=== PATIENT | male | born 1950 | race Caucasian/White ===

== ENCOUNTER 2017-03-09 07:46 | Day surgery (SDC) | payer MEDICARE, MEDICAID ==
--- NOTE | 2017-03-09 06:10 | HP ---
DATE OF ADMISSION: 03/09/2017 HISTORY OF PRESENT ILLNESS: This is a 66-year-old male referred to me by Dr. Jamel walker of microcytic anemia and low iron. The patient has no specific GI symptoms. No history of abd ominal pain, nausea, or vomiting. His bowel movements are regular. There is no history of hematoch ezia or melena. Routine CBC revealed iron-deficiency anemia. The patient comes in for EGD and a co lonoscopy because of unexplained iron-deficiency anemia. ALLERGIES: None. MEDICAL ILLNESSES: 1. Hypertension. 2. Diabetes mellitus. 3. Coronary artery disease. 4. Status post CVA with right-sided weakness. 5. Gout. 6. Hyperlipidemia. 7. Gastroparesis. PHYSICAL EXAMINATION: GENERAL: He is a healthy-looking male who appears comfortable. He has a right-sided weak ness. He is basically in a wheelchair. VITAL SIGNS: Pulse is 70, blood pressure 130/70. HEENT: Conjunctivae are clear. CARDIOVASCULAR SYSTEM: First and second heart sounds normal. LUNGS: Clear to auscultation. ABDOMEN: Soft to palpate. No organomegaly. No tenderness. No masses. EXTREMITIES: Reveal no edema. ADMITTING DIAGNOSIS: Unexplained iron-deficiency anemia with no specific . PLAN: EGD and colonoscopy.
[2017-03-09] MEDS ORDERED: Lidocaine 1% PF 5 ML VIAL ONE (10:36)
--- NOTE | 2017-03-09 12:08 | OP ---
DATE OF PROCEDURE: 03/09/2017 SURGEON: Wendy Chu M.D. OPERATIVE PROCEDURE: Esophagogastroduodenoscopy. PREOPERATIVE DIAGNOSIS: A 66-year-old male with iron deficiency anemia. The patient is u ndergoing esophagogastroduodenoscopy. POSTOPERATIVE DIAGNOSES: 1. Linear erosion at distal esophagus. 2. Antral gastritis. No biopsies were obtained because he is on Plavix. PROCEDURE IN DETAIL: The patient was placed on his left lateral position and was given sedation by Anesthesia Department. A Pentax video gastroscope under direct vision was passed down the oropharyn x, past the gastroesophageal junction, into the stomach and subsequently into the descending duodenu m. Over the distal esophagus, the patient had a linear erosion. Otherwise, the esophageal mucosa a ppeared normal. The GE junction, no pathology seen. Retroflexion failed to show any lesions in the fundus or cardia. The gastric body, no pathology seen. The gastric antrum showed edematous mucosa at the pyloric channel. No biopsies were taken. The duodenal bulb and descending duodenum, no pat hology seen. The stomach was decompressed and the scope removed.
--- NOTE | 2017-03-09 14:19 | OP ---
OPERATIVE PROCEDURE: Attempted colonoscopy, but not done due to retained stool. PROCEDURE IN DETAIL: The patient was placed on the left lateral position and was given sedation by Anesthesia Department. The patient had diaper, and in the diaper, he had a large amount of solid st ool. A digital exam was done. He had solid stool in the rectal vault and the patient is not cleane d out. The plan is to cancel the colonoscopy today and bring the patient back later.
== END 2017-03-09 12:11 | disposition home or self-care (01) ==
LOC: SDC 07:46
PROVIDERS: ATTEND Internal Medicine Gastroenterology
PROC: 0DJD8ZZ Inspection of Lower Intestinal Tract, Via Natural or Artificial Opening Endoscopic (ICD-10-PCS; principal; 2017-03-09)
PROC: 0DJ08ZZ Inspection of Upper Intestinal Tract, Via Natural or Artificial Opening Endoscopic (ICD-10-PCS; 2017-03-09)
DX: D50.9 Iron deficiency anemia, unspecified (principal); K22.10 Ulcer of esophagus without bleeding; K29.60 Other gastritis without bleeding; I10 Essential (primary) hypertension; E11.9 Type 2 diabetes mellitus without complications; I25.10 Atherosclerotic heart disease of native coronary artery without angina pectoris; M10.9 Gout, unspecified; E78.5 Hyperlipidemia, unspecified; K31.84 Gastroparesis; I69.351 Hemiplegia and hemiparesis following cerebral infarction affecting right dominant side; Z79.4 Long term (current) use of insulin; Z79.899 Other long term (current) drug therapy
CPT/HCPCS: J2001

== ENCOUNTER 2017-03-16 07:38 | Day surgery (SDC) | payer MEDICARE, MEDICAID ==
[2017-03-16] MEDS ORDERED: Propofol 200 MG/20 ML VIAL ONE (09:54)
--- NOTE | 2017-03-16 13:05 | OP ---
DATE OF PROCEDURE: 03/16/2017 SURGEON: Wendy Chu M.D. OPERATIVE PROCEDURE: Colonoscopy with polypectomy with biopsy forceps. PREOPERATIVE DIAGNOSIS: Iron deficiency anemia. POSTOPERATIVE DIAGNOSES: 1. Sessile sigmoid polyp. 2. Hemorrhoids. 3. Otherwise, normal exam. However, the prep was not satisfactory as he had stool throughout the colon. PROCEDURE IN DETAIL: The patient was placed on his left lateral position and was given sedation by the Anesthesia Department. A rectal exam was done before the scope was advanced into the rectum. The patient had a large amount of pasty stool in the diaper before the rectal exam. However, rectal exam did not show any stool in the rectal vault compared to the last week. A Pentax video colonoscope was advanced in the rectum and advanced all the way into the cecum. The patient had pockets of retained stool in the colon throughout and washed out. . The appendiceal orifice, ileocecal valve, no pathology seen. The ascending colon, hepatic flexure, transverse colon, splenic flexure, and descending colon, no pathology seen. The sigmoid colon showed a sessile polyp. The polyp was removed with biopsy forceps. Rectum showed hemorrhoids. DISCHARGE PLANNING: Mr. Mustafa is a 66-year-old male referred to me by Dr. Brayden Mccullough because of iron deficiency anemia. The colonoscopy showed a sessile sigmoid polyp. The quality of prep was less than satisfactory. DISCHARGE RECOMMENDATIONS: 1. Resume diet and medicines as before. 2. He will come back to me in 2 weeks. [facility]
== END 2017-03-16 12:00 | disposition home or self-care (01) ==
LOC: SDC 07:38
PROVIDERS: ATTEND Internal Medicine Gastroenterology
PROC: 0DBN8ZX Excision of Sigmoid Colon, Via Natural or Artificial Opening Endoscopic, Diagnostic (ICD-10-PCS; principal; 2017-03-16)
DX: D12.5 Benign neoplasm of sigmoid colon (principal); D50.0 Iron deficiency anemia secondary to blood loss (chronic); K64.9 Unspecified hemorrhoids; Z79.899 Other long term (current) drug therapy; Z98.890 Other specified postprocedural states
CPT/HCPCS: 36416; 88305; J2704

== ENCOUNTER 2017-12-22 07:47 | Day surgery (SDC) | payer MEDICARE, MEDICAID ==
[2017-12-21 10:39] VITALS: BMI 32.7
--- NOTE | 2017-12-22 05:40 | HP ---
SHORT STAY HISTORY AND PHYSICAL DATE OF ADMISSION: 12/22/2017 HISTORY OF PRESENT ILLNESS: This is a 67-year-old male, referred to me by Dr. Mccullough for microcytic anemia. The patient is disabled and he has had a stroke before . The patient has a history of diabetes mellitus, gastroparesis, coronary artery disease, and also past history of CVA. The patient also has history of gout, hyperlipidemia, and hypertension. The patient lives in [facility]. The patient was found to have anemia with recent drop in blood count. The anemia is microcytic and he has low serum iron. The patient was seen maybe a year ago and had an EGD done, which revealed gastric erosions. The colonoscopy was incomplete, because of retained stool. The patient has no history of hematochezia, no melena. The patient's anemia is microcytic. Because of above reason, he is brought in for EGD and colonoscopy. MEDICAL ILLNESS:. 2. Hypertension. 3. Diabetes. 4. Coronary artery disease. 5. Past history of CVA. 6. Colon polyp. 7. Gastroparesis. ALLERGIES: None. PHYSICAL EXAMINATION: VITAL SIGNS: Pulse is 70, blood pressure 130/70. HEENT: Conjunctivae clear. CARDIOVASCULAR SYSTEM: First and second heart sounds are normal. LUNGS: Clear to auscultate. ABDOMEN: Soft to palpate. No organomegaly. No tenderness. No masses. ADMITTING DIAGNOSES: 1. Microcytic anemia. 2. Colon polyp. PLAN: EGD and colonoscopy. [facility]
[2017-12-22] MEDS ORDERED: Lidocaine 1% PF 5 ML VIAL ONE (13:44)
[2017-12-22] MEDS ORDERED: PROPOFOL 200 MG/20 ML VIAL ONE (13:44)
--- NOTE | 2017-12-23 11:17 | OP ---
DATE OF PROCEDURE: 12/22/2017 SURGEON: Wendy Chu M.D. OPERATIVE PROCEDURE: Esophagogastroduodenoscopy. PREOPERATIVE DIAGNOSIS: A 67-year-old male with iron deficient anemia, undergoing esophagogastroduod enoscopy. POSTOPERATIVE DIAGNOSES: 1. Anemia. 2. Mild gastritis which is focal with the proximal gastric body. There is no other pathology seen. PROCEDURE IN DETAIL: The patient was placed on his left lateral position and was given sedation by A nesthesia Department. A Pentax video gastroscope under direct vision was passed down the oropharynx, past the GE junction, into the stomach and subsequently in the descending duodenum. The vocal cords appeared healthy. The esophageal mucosa appears normal. The GE junction, no pathology seen. He stapleton s a hiatus hernia. The fundus and cardia, no pathology seen. Over the proximal gastric body showed focal edema, erythema. The gastric antrum, duodenal bulb, and descending duodenum, no pathology seen . The stomach was decompressed and the scope removed.
--- NOTE | 2017-12-24 00:54 | OP ---
DATE OF PROCEDURE: 12/22/2017 PROCEDURE: Colonoscopy. PREOPERATIVE DIAGNOSIS: Microcytic anemia. PROCEDURE NOTE: The patient was turned on his left lateral position and was given sedation by Anesth esia Department. The patient's diaper was removed. The patient had a large amount of stool in the d iaper. The digital exam was performed. The digital exam showed retained stool in the rectal vault. Because of above reason, the procedure was canceled. DISCHARGE PLANNING: This is a 67-year-old male referred to me by Dr. Mccullough for evaluation of iron deficiency anemia. The EGD showed focal gastritis. The colonoscopy was not possible because of ret ained stool. The patient will be discharged back to [facility] and will probably bring him back in the next few weeks.
== END 2017-12-22 11:42 ==
LOC: SDC 07:47
PROVIDERS: ATTEND Internal Medicine Gastroenterology
PROC: 0DJ08ZZ Inspection of Upper Intestinal Tract, Via Natural or Artificial Opening Endoscopic (ICD-10-PCS; principal; 2017-12-22)
DX: K29.70 Gastritis, unspecified, without bleeding (principal); I10 Essential (primary) hypertension; E11.9 Type 2 diabetes mellitus without complications; I25.10 Atherosclerotic heart disease of native coronary artery without angina pectoris; Z79.4 Long term (current) use of insulin; Z79.899 Other long term (current) drug therapy; Z79.82 Long term (current) use of aspirin
CPT/HCPCS: 36416; J2001; J2704

== ENCOUNTER 2017-12-25 16:46 | Inpatient (IN) | payer MEDICARE, MEDICAID ==
[~2017-12-25 16:46] MED LIST: ISOVUE-370 76%-LOCM 1 ML ONE
[2017-12-25 18:18] LABS: INR-International Normal Ratio 1.2; Prothrombin Time 15.2 SEC (12.0-14.7)
[2017-12-25 18:19] LABS: PTT 49.2 SEC (22.9-36.1)
--- NOTE | 2017-12-25 18:32 | CT ---
CT ANGIOGRAM OF THE CHEST 12/25/17 COMPARISON: None. HISTORY: Dyspnea, NSTEMI, "not felling well." TECHNIQUE: Serial axial CT imaging at 2.5 mm intervals from the thoracic inlet through the upper abdomen with IV contrast using a CT angiogram protocol. Coronal and oblique sagittal 3D reformatted imaging obtained . FINDINGS: Midline sternotomy wires are present. No axillary, mediastinal or hilar lymphadenopathy. Extensive co ronary arterial calcification. The heart is enlarged. There is reflux of contrast media into the IVC and hepatic veins suggesting suboptimal cardiac output. Disconnected epicardial pacing leads are pres ent. Punctate calcification in the mid pole of the left kidney noted which could represent renal stone dis ease or vascular calcification. Adequate opacification of pulmonary arterial vasculature noted. No filling defect is seen to suggest the presence of a central pulmonary embolism. Assessment of the distal pulmonary artery is limited bi laterally on the basis of respiratory motion artifact. This artifact is most significant within bilat eral lung bases. There are small bilateral pleural effusions. There is subtle hazy ground glass opacity and mild liner interstitial prominence in the bilateral upper lobes centrally, right greater than left. Review of t he osseous structures demonstrates no worrisome lytic or blastic bone lesions. IMPRESSION: 1. Motion limited assessment demonstrating no evidence for pulmonary embolism. 2. Findings suggesting pulmonary edema. 3. Atherosclerotic disease. POS: GABRIEL
[2017-12-25 18:38] LABS: Troponin I 18.317 ng/mL (< 0.028)
--- NOTE | 2017-12-25 19:58 | CON ---
DATE OF CONSULTATION: 12/25/2017 CARDIOLOGY CONSULTATION: REASON FOR CONSULTATION: Non-STEMI. HISTORY OF PRESENT ILLNESS: Mr. Mustafa is a pleasant 67-year-old white gentleman who comes to the hospital for having a low O2 sat. He is in a retirement for stroke and residual deficits with spe ech and has weakness. He was noted to have some nausea and vomiting in a retirement and oxygen sat uration was measured 91% on room air. So there was a concern for aspiration, so he was brought in. He has had a cough for the past 3 days, apparently, but when talking to him, he tells me he has been short of breath for about 3 weeks now, he also tells me that he has not had any chest pain except for about a week ago. He had about a day worth of chest pain. He has not had any chest pain. He denie s any chest pain currently. When asked exactly what had changed that made him come in, he is not shelton e he tells me that he thinks that the retirement just got fed up of dealing with him; however, look ing at the notes because he was mildly hypoxic as above. Otherwise, no other issues at that time. Philippe sapp has a history of anemia. He has been worked up here in the past with multiple scopes performed by Dr. Chu the last time he had a colonoscopy, had a sessile polyp removed, but he has also had up per endoscopy that showed just gastric erosions suggestive of gastritis. He was transfused when his hemoglobin was in the 7s went up to 11, but trickled down a few months later down to 7 again. Currking herrera, his hemoglobin is at 7 as well. Cardiology is being consulted as his troponins were first drawn and they were 17.9. Apparently, he has also been having diarrhea for the last 3 weeks. PAST MEDICAL HISTORY: 1. Coronary artery disease, status post bypass about 5 years ago down in [place]. 2. Stent placement sometime after his bypass in [place] as well, but 2 years ago. 3. History of chronic anemia thought to be from a slow GI bleed from gastritis, possibly. 4. Hypertension. 5. Type 2 diabetes. 6. Cerebrovascular accident with right-sided weakness and mild speech impairment. 7. Gout. 8. Hyperlipidemia. 9. Gastroparesis. PAST SURGICAL HISTORY: 1. CABG as above. 2. Stenting as above. SOCIAL HISTORY: No alcohol, tobacco or drugs. He stays at retirement now due to his stroke. FAMILY HISTORY: Noncontributory. OUTPATIENT MEDICATIONS: Include: 1. Levemir. 2. Aspirin 81 a day. 3. Allopurinol 300 mg a day. 4. Carvedilol 6.25 mg b.i.d. 5. Lisinopril 20 mg a day. 6. Protonix 40 mg a day. 7. Multivitamin daily. 8. Proscar 5 mg a day. 9. Reglan 10 mg p.r.n. 3 times a day. 10. Loperamide 2 mg p.r.n. 11. Milk of magnesia. 12. Tylenol p.r.n. 13. O2 as needed. 14. Humalog KwikPen p.r.n. 12 units 3 times a day before meals. ALLERGIES: No known drug allergies. REVIEW OF SYSTEMS: A 12 point review of systems was done and is all negative unless stated in the hi story of present illness. PHYSICAL EXAMINATION: VITAL SIGNS: Temperature 99.1, pulse 90, respiratory rate 30, satting 91% on room air. His respirat ory rate is much better now that he is on oxygen about 22 and he is satting 96% on 2 liters, blood pr essure was 140/78. GENERAL: Awake, alert, oriented x3, in no distress. HEENT: Normocephalic, atraumatic. NECK: Supple. LUNGS: Mild crackles at the bases. CARDIOVASCULAR: S1, S2, no S3, S4, no murmurs. ABDOMEN: Soft, positive bowel sounds. EXTREMITIES: no edema. SKIN: Warm and dry. LABORATORY WORK: Reviewed. CBC with a white count of 15, hemoglobin was 7.5, hematocrit of 26, plat elet count of 350. Coags with INR of 1.2. Chemistry with sodium of 137, potassium is 4.4, chloride 107. Carbon dioxide of 20, anion gap of 14, BUN of 14, creatinine 1.13, GFR 64, glucose was 299. La ctic acid was 1.8. Alkaline phosphatase, AST, ALT and total bilirubin were normal. Troponin was 17. 9, repeat is 18.3 with a CK-MB of 10.4. BNP was 2173. Albumin of 3.5, lipase of 18. CT of the chest performed at outside facility shows no evidence of pulmonary embolism, but there are findings consistent with pulmonary edema. EKG was reviewed, ST depression suggestive of anterior lateral ischemia, but no ST elevations. ASSESSMENT AND PLAN: 1. Non-ST elevation myocardial infarction. 2. Acute on chronic systolic versus diastolic heart failure. 3. Late presentation myocardial infarction. 4. Hypoxia, likely related to pulmonary edema. 5. Coronary artery disease. 6. Anemia may be related to gastrointestinal bleed. PLAN: 1. At this time he is chest pain free, his CO might have happened maybe a week ago when he had episo delmar of chest pain; however, he has been short of breath for the last 3 weeks. We agree with admissio n to telemetry. 2. We will recommend full anticoagulation for now, see if he starts dropping his hemoglobin. 3. IV Lasix for his pulmonary edema. 4. No plan on intervention at this time secondary to his chronic anemia which is likely related to g astrointestinal blood loss and the fact that he is both chest pain free and late presenting to this M I likely his CO was about a week ago. 5. Echocardiogram to be done. 6. Patient is severely ill, would not be unexpected. 7. Further recommendations with results of echo.
[2017-12-25 21:35] LABS: Troponin I 19.713 ng/mL (< 0.028)
--- NOTE | 2017-12-25 22:57 | PDOC.FPRHP ---
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 The patient was a poor historian who was oriented only to person and place on exam. The patient reports having some N/V and RLQ abdominal pain that has been ongoing for the last week. He says that the vomiting has not occurred daily but about every other day and that he vomits about 2-3 times/day. He denies any hematemesis but does endorse yellow colored vomitus. Regarding his RLQ pain, the patient reports that the pain is episodic and lasts about 1.5 hours before going away on its own. He says it is non- radiating and sharp in nature. The patient denies any chest pain, SOB, headache , weakness, or dizziness. Of note, per chart review, ER records indicate that the patient was sent to the ED from the intermediate due to N/V at lunch & SOB. He was found to have an O2 of 91% on RA & sent to the ED due to concerns for possible aspiration. The intermediate reports SOB x 1 week and a cough x 3 days prior to admission. Also of note, the patient's daughter reports that his mental status during the interview was way off from his baseline and that he normally is very sharp. ED Course: The patient was given 90mg of SQ lovenox, 325 of ASA in [facility] & 40mg IV lasix. He was also given a Duoneb treatment. - Allergies/Adverse Reactions Allergies Allergy/AdvReac Type Severity Reaction Status Date / Time No Known Allergies Allergy Verified 12/21/17 10:39 - Home Medications Medication Instructions Recorded Confirmed Type Allopurinol 300 mg PO DAILY 02/22/17 12/26/17 History Aspirin [Aspirin Chewable Tablet] 81 mg PO DAILY 02/22/17 12/26/17 History Carvedilol [Coreg] 6.25 mg PO BID 02/22/17 12/26/17 History Lisinopril [Zestril] 20 mg PO DAILY 02/22/17 12/26/17 History Metoclopramide HCl [Reglan] 10 mg PO TID 02/22/17 12/26/17 History Multivitamin [Multi-Vitamin Daily] 1 tablet PO DAILY 02/22/17 12/26/17 History Finasteride [Proscar] 5 mg PO DAILY tab 02/23/17 12/26/17 Rx Insulin Aspart [Novolog] 12 unit SQ TID 12/21/17 12/26/17 History Insulin Detemir [Levemir] 70 unit SQ DAILY 12/21/17 12/26/17 History Pantoprazole [Protonix] 40 mg PO DAILY 12/21/17 12/26/17 History Acetaminophen 650 mg PO Q4HR PRN 12/26/17 12/26/17 History Loperamide HCl [Loperamide] 2 mg PO ASDIR PRN 12/26/17 12/26/17 History Magnesium Hydroxide [Milk of 30 ml PO DAILY PRN 12/26/17 12/26/17 History Magnesia] - History PMHx: CAD s/p quadruple CABG, CHF without preserved EF, CVA x 2, HLD, HTN, GERD , DMII, gout PSHx: CABG FHx: Father- DMII & from an [place] Mother- from a CVA, also had an [place] Social: No EtOH, drug, or current or former tobacco use. - Review of Systems General: reports: fatigue. denies: fever/chills, weight/appetite/sleep changes Eyes: reports: other ( burning in R eye) ENT: denies: nasal congestion, rhinorrhea Respiratory: denies: cough, shortness of breath Cardiovascular: reports: edema (R leg edema). denies: chest pain Gastrointestinal: reports: nausea, vomiting, diarrhea, abdominal pain. denies: constipation, GI bleeding Genitourinary: denies: dysuria Skin: denies: rashes Musculoskeletal: reports: swelling (RLE swelling). denies: pain Neurological: denies: numbness, syncope, weakness - Vital signs BP: 144/83 HR: 80 RR: 18 Tmax: 99F Pox: O2 monitor was not in place during time of exam - Physical Exam Constitutional: NAD -Constitutional: Oriented to person only. HEENT: normocephalic and atraumatic, PERRLA, conjunctiva clear, grossly normal vision, grossly normal hearing, MMM, oropharynx clear Neck: supple, no LAD Heart: RRR, normal S1/S2, pulses present, no edema Lungs: CTAB, no respiratory distress, good air movement, no rales/rhonchi, no wheezing Abdomen: soft, bowel sounds present, other (Moderate abdominal distension. Tender to palpation in LLQ on exam.) Musculoskeletal: normal structure, ROM grossly normal Neurological: no focal deficit, CN II-XII intact, normal sensation Skin: no rash/lesions, good turgor, no jaundice Heme/Lymphatic: no unusual bruising or bleeding Psychiatric: normal mood and affect (Poor recent memory.) FMR H&P: Results - Labs Result Diagrams: 12/26/17 05:25 12/26/17 00:28 - EKG Interpretation EKG: Significant for T wave inversion in the lateral precordial leads. - Radiology Interpretation Chest x-ray Status: report reviewed by me Additional comment: CXR in outside ED was significant for pulmonary vascular congestion and cardiomegaly. No pulmonary edema or effusion. FMR H&P: A/P - Problem List (1) NSTEMI (non-ST elevated myocardial infarction) Current Visit: Yes Status: Acute Code(s): I21.4 - NON-ST ELEVATION (NSTEMI) MYOCARDIAL INFARCTION (2) Systolic CHF, acute on chronic Current Visit: Yes Status: Chronic Priority: High Code(s): I50.23 - ACUTE ON CHRONIC SYSTOLIC (CONGESTIVE) HEART FAILURE (3) Diastolic CHF Current Visit: Yes Status: Chronic Code(s): I50.30 - UNSPECIFIED DIASTOLIC ( CONGESTIVE) HEART FAILURE Qualifiers: Heart failure chronicity: acute on chronic Qualified Code(s): I50.33 - Acute on chronic diastolic (congestive) heart failure (4) Microcytic anemia Current Visit: Yes Status: Chronic Code(s): D50.9 - IRON DEFICIENCY ANEMIA, UNSPECIFIED (5) History of myocardial infarction Current Visit: Yes Status: Resolved Code(s): I25.2 - OLD MYOCARDIAL INFARCTION (6) Coronary artery disease Current Visit: Yes Status: Chronic Code(s): I25.10 - ATHSCL HEART DISEASE OF [place] CORONARY ARTERY W/O ANG PCTRS Qualifiers: Coronary Disease-Associated Artery/Lesion type: bypass graft [place] vs. transplanted heart: [place] heart (7) History of CVA with residual deficit Current Visit: Yes Status: Chronic Code(s): I69.30 - UNSPECIFIED SEQUELAE OF CEREBRAL INFARCTION (8) Hyperlipemia Current Visit: Yes Status: Chronic Code(s): E78.5 - HYPERLIPIDEMIA, UNSPECIFIED (9) Hypertension Current Visit: Yes Status: Chronic Code(s): I10 - ESSENTIAL (PRIMARY) HYPERTENSION (10) Diabetes mellitus, type II Current Visit: Yes Status: Chronic (11) Gout Current Visit: Yes Status: Chronic Code(s): M10.9 - GOUT, UNSPECIFIED (12) GERD (gastroesophageal reflux disease) Current Visit: Yes Status: Chronic Code(s): K21.9 - GASTRO-ESOPHAGEAL REFLUX DISEASE WITHOUT ESOPHAGITIS (13) Benign prostatic hyperplasia Current Visit: Yes Status: Chronic Code(s): N40.0 - BENIGN PROSTATIC HYPERPLASIA WITHOUT LOWER URINRY TRACT SYMP - Plan 67YO male with PMH significant for systolic and diastolic CHF, [place] x 2 with CAD s/p CABGx4, HTN, and HLD who presented to the ED due to SOB, N/V and cough and was foudn to have had an NSTEMI on an ECG. 1. NSTEMI: - Per cards likely happened about 1 week ago when patient's symptoms began. - Will continue full anticoagulation with 90mg Lovenox SQ BID & 81mg ASA QD. - Per cards no cath planned at this time. Likely 2/2 anemia. - Echo ordered for the AM. - Will continue to trend troponins. 2. Acute on chronic CHF exacerbation: - Likely 2/2 NSTEMI but could also be due to poor medication or diet compliance. - Will continue IV lasix & monitor strict Is & Os & QD weights. - Will resume cardiac, carb consistent diet with fluid restricted to 1800mL/ day. - Will resume home meds. 3. Metabolic encephalopathy - Could be 2/2 CVA vs. infection vs. delirium. - Will obtain CT head to rule out CVA. Could consider AM MRI. - CXR negative which rules out PNA. WBC elevated at 25. Could be 2/2 stress response. However, will order a UA and urine culture to r/o UTI as source of infection. - Will continue to monitor for other signs of infection. 4. Chronic Microcytic Anemia: - Likely 2/2 iron deficiency as MCV was 60. - Colonoscopy 1 year ago WNL. No melena or hematochezia per patient. - FOBT pending. - Iron studies pending. 5. h/o CAD - Aware. - Will resume home meds. 6. HLD: - Aware. - Will resume home meds. 7. HTN: - Will resume home meds. 8. GERD: - Will resume home meds. 9. DMII: - Aware. - Will resume home meds and carb consistent diet. 10. Gout: - Will resume home meds. 11. BPH: - Will resume home meds. FMR H&P: [facility] - Pertinent history Patient is a 67 year old male who was transferred from an outside ER due to NSTEMI. Pt is originally from [facility] and was complaining of dyspnea, nausea/vomiting, abdominal pain. He was found to have an oxygen saturation of 91 % at the DC and EMS was called due to concern for aspiration (per ED notes). At the outside ER pt was found to have a Troponin of 17.99. He was given ASA and therapeutic lovenox prior to transfer. Cardiology was consulted and believes that pt's symptoms are subacute and stated that emergent intervention was not needed. Currently, pt denies chest pain, abdominal pain, nausea and vomiting. Of note, pt's daughter states that patient is not currently behaving like himself and is not answering questions appropriately and was not oriented to time or place which is abnormal for h im. - Plan Date/Time: 12/25/17 8797 INicki, have evaluated this patient and agree with findings/plan as outlined by equine intern resident. Pertinent changes/additions are listed here. NSTEMI - Pt will be admitted to telemetry inpatient. - cardiology recommendations - Echocardiogram - trend troponins Metabolic encephalopathy - differentials include CVA, infection, delirium -will obtain CT head to rule out hemorrhagic stroke, consider MRI in am - will order urine culture and monitor for other signs of infection; CXR negative. - reorienting CHF exacerbation - IV lasix - strict I/Os, daily weights. - Echo CAD - s/p CABG - will resume home meds Chronic microcytic anemia - 2 units PRBCs ordered and started in ED. - AM CBC - will aim to keep Hgb > 10 due to history of CAD. - iron studies - pt has had recent EGD 2 days ago showing gastritis and Colonoscopy last yr in which a tubular adenoma was removed. GERD - resume home meds Depression - resume home meds Attending Addendum - Attending Addendum Date/Time: 12/26/17 8467 I personally evaluated the patient and discussed the management with Dr. Butler and Jonathan this morning. I agree with the History, Examination, Assessment and Plan documented above with any addition or exceptions noted below.
--- NOTE | 2017-12-25 23:49 | CT ---
HEAD CT WITHOUT CONTRAST: 12/25/17 COMPARISON: None. HISTORY: Confusion, altered mental status. TECHNIQUE: Serial axial CT imaging at 5 mm intervals from vertex through skull base without contrast. FINDINGS: The imaged paranasal sinuses and mastoid air cells are well aerated. There is no displaced calvarial fracture. There is atherosclerotic calcification of the cavernous carotid arteries. There is periventricular deep and subcortical white matter hypodensities suggesting small vessel dise ase. There is mild diffuse cerebral volume loss with associated prominence of the CSF containing spac es. There is atherosclerotic calcification of the distal vertebral arteries and the cavernous carotid arteries. No acute findings are noted. IMPRESSION: Evidence of small vessel disease and cerebral volume loss with no intracranial hemorrhage, midline sh ift or mass effect. POS: [facility]
[2017-12-26] MEDS ORDERED: Acetaminophen 325 MG TAB PO PRN ×2 (00:06→00:08)
[2017-12-26] MEDS ORDERED: Ondansetron HCl/PF 4 MG/2 ML Vial IVP PRN (00:08)
[2017-12-26 00:12] VITALS: BMI 30.6
[2017-12-26] MEDS ORDERED: Loperamide HCl 2 MG CAP PO PRN (00:49)
[2017-12-26 01:06] LABS: Iron 16 ug/dL (65-175); Iron Binding Capacity, Total 304 mcg/dL (261-462)
[2017-12-26 01:07] LABS: Iron 16 ug/dL (65-175); Iron Binding Capacity, Total 304 mcg/dL (261-462)
[2017-12-26 01:14] LABS: Critical Call Chem Troponin I RESULT DECREASING
[2017-12-26] MEDS ORDERED: Enoxaparin Sodium 100 MG/ML SYRINGE SC SCH ×2 (04:00→09:00)
[2017-12-26] MEDS: Furosemide 40 MG/4 ML VIAL SLOW IVP SCH ×2 (05:00→14:19)
--- NOTE | 2017-12-26 06:02 | PDOC.EVN ---
Event Note - Event Note Event Note: Nurse called residents to bedside at approximately 0545 2/2 decreased alertness/ responsiveness. - Patient was resting in bed with mild increased work of breathing. O2 sats 94% on 2L O2 via nasal canula. - Oriented to person only (no change from orientation on admission). Was following commands and answering most questions appropriately. - RRR, LCTAB. - Denied any chest or abdominal pain. Just endorsed feeling tired. - Bedside POC BG was 197. - Nurse also reported that the patient refused his lovenox shot. Spoke with patient reminding him of why he was i n the hospital & explained the importance of getting this shot. The patient then agreed to have it. - Reassured nurse that no extra interventions were needed at this time. Instructed to notify MD if there was any acute worsening of symptoms.
[2017-12-26 06:12] LABS: #Basophils 0.1 thou/uL (0.0-0.2); #Eosinphils 0.2 thou/uL (0.0-0.7); #Lymphocytes 2.4 thou/uL (1.20-3.40); #Monocytes 1.2 thou/uL (0.11-0.59); #Neutrophils 8.2 thou/uL (1.40-6.50); %Basophils 0.5 % (0.0-1.0); %Eosinophils 1.8 % (0.0-10.0); %Lymphocytes 19.5 % (21.0-51.0); %Monocytes 10.1 % (0.0-10.0); %Neutrophils 68.1 % (42.0-75.0); Band 1 % (5-11); Elliptocytes SLIGHT = 2-5 cells (100X) (0-1/hpf); Eosinophils 4 % (0-10); Hemoglobin 9.5 g/dL (14.0-18.0); Lymphocytes 27 % (21-51); MDiff Complete? YES; Mean Corpuscular Hemoglobin 21.4 pg (27.0-31.0); Mean Corpuscular Volume 66.9 fL (78.0-98.0); Mean Platelet Volume 10.9 fL (7.4-10.4); Monocytes 6 % (0-10); Neutrophil 62 % (42-75); PLT Morphology Comment Appears Adequate; Platelet Count 290 thou/uL (130-400); RBC Distribution Width 23.7 % (11.5-14.5); Red Blood Cell (RBC) Count 4.44 mill/uL (4.70-6.10); White Blood Cell (WBC) Count 12.1 thou/uL (4.8-10.8)
[2017-12-26 07:06] LABS: ALT (SGPT) Less than 7 U/L (8-55); AST (SGOT) 24 U/L (5-34); Albumin 3.4 g/dL (3.4-4.8); Alkaline Phosphatase 69 U/L (40-150); Anion Gap 12 mmol/L (10-20); BUN (Urea Nitrogen) 15 mg/dL (8.4-25.7); Bilirubin, Total 0.7 mg/dL (0.2-1.2); Calc. Creatinine Clearance 74 mL/min (70-130); Calcium 8.5 mg/dL (7.8-10.44); Carbon Dioxide 23 mmol/L (23-31); Chloride 106 mmol/L (98-107); Estimated GFR-MDRD 61; Globulin 2.9 g/dL (2.4-3.5); Glucose 179 mg/dL (80-115); Potassium 3.8 mmol/L (3.5-5.1); Protein, Total 6.3 g/dL (5.8-8.1); Sodium 137 mmol/L (136-145)
--- NOTE | 2017-12-26 08:00 | PDOC.FM ---
- Subjective Subjective: Overnight patient remained A&O x1-x2. No other concerns - Objective MAR Reviewed: Yes Vital Signs & Weight: Vital Signs (12 hours) Temp Pulse Resp BP Pulse Ox 12/26/17 04:56 97.8 F 78 20 142/78 H 95 12/25/17 23:55 98.8 F 77 17 2 L 12/25/17 23:50 98.8 F 77 17 118/66 95 Weight Weight 88.649 kg I&O: 12/25/17 12/26/17 12/27/17 06:59 06:59 06:59 Intake Total 750 Balance 750 Result Diagrams: 12/26/17 05:25 12/26/17 00:28 <Arianna Gonzalez - Last Filed: 12/26/17 22:02> - Objective Vital Signs & Weight: Vital Signs (12 hours) Temp Pulse Resp BP BP Pulse Ox 12/27/17 11:43 98.2 F 65 16 120/67 12/27/17 09:41 109/73 12/27/17 09:40 109/73 12/27/17 08:00 99.2 F 65 16 109/73 96 12/27/17 04:27 98.3 F 70 16 145/72 H 95 Weight Weight 83.631 kg I&O: 12/26/17 12/27/17 12/28/17 06:59 06:59 06:59 Intake Total 750 1260 Balance 750 1260 Result Diagrams: 12/27/17 04:55 12/27/17 04:55 <George Alexander A - Last Filed: 12/27/17 14:12> Phys Exam - Physical Examination Constitutional: NAD HEENT: TM's clear fine bibasilar crackls, supraclavical retractions Cardiovascular: RRR Gastrointestinal: soft, non-tender, no distention Musculoskeletal: no edema Deviation from normal: A&O x2, disoriented to place Skin: cap refill <2 seconds <Arianna Gonzalez - Last Filed: 12/26/17 22:02> Dx/Plan (1) NSTEMI (non-ST elevated myocardial infarction) Code(s): I21.4 - NON-ST ELEVATION (NSTEMI) MYOCARDIAL INFARCTION Status: Acute (2) Benign prostatic hyperplasia Code(s): N40.0 - BENIGN PROSTATIC HYPERPLASIA WITHOUT LOWER URINRY TRACT SYMP Status: Chronic (3) CKD (chronic kidney disease), stage III Code(s): N18.3 - CHRONIC KIDNEY DISEASE, STAGE 3 (MODERATE) Status: Chronic (4) Coronary artery disease Code(s): I25.10 - ATHSCL HEART DISEASE OF [place] CORONARY ARTERY W/O ANG PCTRS Status: Chronic Qualifiers: Coronary Disease-Associated Artery/Lesion type: bypass graft [place] vs. transplanted heart: [place] heart (5) Hyperlipemia Code(s): E78.5 - HYPERLIPIDEMIA, UNSPECIFIED Status: Chronic (6) Hypertension Code(s): I10 - ESSENTIAL (PRIMARY) HYPERTENSION Status: Chronic - Plan Plan: 67 yo M with PH CABG here with NSTEMI and acute AMS 1. Acute AMS 2/2 Cardiogenic Shock vs. Infection vs. CVA -Altered from baseline per daughter who reports he is typically very sharp but pt has been A&O x1 - x2 since admission -For UTI: Obtained urine sample today. F/u UA and UC -For cardiogenic shock: CXR repeat showed pulm. vascular sejal. Continue IV lasix 40 and 2.5L NC O2, I/Os, Pending echo -CVA: H/o CVA and pt dysarthric with NH reporting concern for aspiration PNA-ST rx mech soft diet. Consider brain MRI -Aspiration PNA: consider starting clindamycin for anaerobic coverage -Check TSH 2. HLD -Continue home meds 3. HTN -Continue home meds 4. DM2 -Continue home meds 5. Depression -Continue home meds 6. Gout -Continue home meds 7. BPH -Continue home meds 8. chronic microcytic Anemia -monitor H/H, aim for Hb >10 d/t pts h/o CAD Plan discussed with Dr. alexander <Arianna Gonzalez - Last Filed: 12/26/17 22:02> (1) NSTEMI (non-ST elevated myocardial infarction) Code(s): I21.4 - NON-ST ELEVATION (NSTEMI) MYOCARDIAL INFARCTION Status: Acute (2) Systolic CHF, acute on chronic Code(s): I50.23 - ACUTE ON CHRONIC SYSTOLIC (CONGESTIVE) HEART FAILURE Status : Chronic (3) Diastolic CHF Code(s): I50.30 - UNSPECIFIED DIASTOLIC (CONGESTIVE) HEART FAILURE Status: Chronic Qualifiers: Heart failure chronicity: acute on chronic Qualified Code(s): I50.33 - Acute on chronic diastolic (congestive) heart failure (4) Microcytic anemia Code(s): D50.9 - IRON DEFICIENCY ANEMIA, UNSPECIFIED Status: Chronic (5) History of myocardial infarction Code(s): I25.2 - OLD MYOCARDIAL INFARCTION Status: Resolved (6) Coronary artery disease Code(s): I25.10 - ATHSCL HEART DISEASE OF [place] CORONARY ARTERY W/O ANG PCTRS Status: Chronic Qualifiers: Coronary Disease-Associated Artery/Lesion type: bypass graft [place] vs. transplanted heart: [place] heart (7) History of CVA with residual deficit Code(s): I69.30 - UNSPECIFIED SEQUELAE OF CEREBRAL INFARCTION Status: Chronic (8) Hyperlipemia Code(s): E78.5 - HYPERLIPIDEMIA, UNSPECIFIED Status: Chronic (9) Hypertension Code(s): I10 - ESSENTIAL (PRIMARY) HYPERTENSION Status: Chronic (10) Diabetes mellitus, type II Status: Chronic (11) Gout Code(s): M10.9 - GOUT, UNSPECIFIED Status: Chronic (12) GERD (gastroesophageal reflux disease) Code(s): K21.9 - GASTRO-ESOPHAGEAL REFLUX DISEASE WITHOUT ESOPHAGITIS Status: Chronic (13) Benign prostatic hyperplasia Code(s): N40.0 - BENIGN PROSTATIC HYPERPLASIA WITHOUT LOWER URINRY TRACT SYMP Status: Chronic <George Alexander - Last Filed: 12/27/17 14:12> Attending Addendum - Attending Addendum Date/Time: 12/27/17 1412 I personally evaluated the patient and discussed the management with Dr. Gonzalez on 12/26/17. I agree with the History, Examination, Assessment and Plan documented above with any addition or exceptions noted below. <George Alexander - Last Filed: 12/27/17 14:12>
[2017-12-26 08:23] LABS: Bilirubin Negative (Negative); Blood, Urine Small (Negative); Clarity CLEAR (Clear); Glucose, Urine (Dipstick) Negative (Negative); Leukocyte Negative (Negative); Nitrite Negative (Negative); Protein, Urine (Dipstick) Negative (Neg-Trace); Specific Gravity, Urine 1.007 (1.002-1.036); Urobilinogen 0.2 mg/dL (0.2-1.0)
[2017-12-26 08:25] LABS: Bacteria/HPF None Seen HPF (None Seen); Hyaline Casts/LPF 0-3 HYALINE CAST LPF (0-3 Hyaline); Pathc Cast-AUWi Flag 0.14 (0-2.49); Squamous Epithelial None Seen HPF (0-3); WBC/HPF None Seen HPF (0-3)
[2017-12-26 08:58] LABS: Actual Bicarbonate (HCO3a) 21.9 mEq/L (22-28); Base Excess (BEa) -1.3 mEq/L (-2.0 to +3.0); CO2 Tension 31.2 mmHg (35.0-45.0); O2 Tension (PaO2) 85.8 mmHg (> 80.0); pH, Arterial 7.46 (7.35-7.45)
[2017-12-26 08:59] LABS: Hemoglobin (Hb) 9.6 g/dL (14.0-18.0)
[2017-12-26 09:00] LABS: Analyzer IN Cardio OR; Calcium, Ionized 1.1 mmol/L (1.12-1.30); Puncture Site LRA
[2017-12-26] MEDS ORDERED: INSULIN DETEMIR 70 UNIT SQ SCH (09:00)
[2017-12-26] MEDS: Multivitamin W/ Minerals 1 TAB PO SCH (09:13)
[2017-12-26] MEDS: Allopurinol 300 MG TAB PO SCH (09:13)
[2017-12-26] MEDS: Carvedilol 6.25 MG TAB PO SCH ×2 (09:13→20:29)
[2017-12-26] MEDS: Lisinopril 20 MG TAB PO SCH (09:14)
[2017-12-26] MEDS: Ferrous Sulfate 325 MG TAB PO SCH ×2 (09:14→17:33)
[2017-12-26] MEDS: Metoclopramide HCl 10 MG TAB PO SCH ×3 (09:14→20:29)
[2017-12-26] MEDS: Finasteride 5 MG TAB PO SCH (09:14)
[2017-12-26 09:21] LABS: Lactic Acid 1.4 mmol/L (0.5-2.2)
[2017-12-26] MEDS: HumaLOG 300 UNITS/3 ML VIAL SC SCH ×3 (10:19→17:39)
[2017-12-26] MEDS: Insulin Glargine 70 UNITS in Pre-Filled Syringe 1 EACH SC SCH (10:20)
--- NOTE | 2017-12-26 10:24 | PDOC.EVN ---
Event Note - Event Note Event Note: 0700: patient noted to be tachypneic, supraclavicular contractions, lung sounds clear, mild decreased sounds at bases. Patient denies pain. No abdominal pain on palpation. Nasal canula hanging off side of face, satting 93%, replaced NC. A &Ox2 Ordered: Lactic acid, ABG, CXR, blood cultures, in and out cath for ua/culture 1000: Respiratory status improved ABG, reassuring O2 and pH. will f/u on CXR. Doing echo at time of visit. Patient denies pain or shortness of breath.
[2017-12-26] MEDS: cefTRIAXone\\ROCEPHIN 1 GM in Sodium Chloride 0.9% 100 ML IVPB SCH (10:43)
[2017-12-26] MEDS: Azithromycin 500 MG in Sodium Chloride 0.9% 250 ML 250 ML IVPB SCH (10:45)
--- NOTE | 2017-12-26 12:20 | RAD ---
PORTABLE CHEST: History Shortness of breath. COMPARISON: 12/25/17. FINDINGS: Cardiomegaly with vascular congestion. Small effusions. Interstitial and early alveolar edema patte rn in both mid lungs. Not significantly changed from yesterday. POS: [facility]
[2017-12-26 12:40] LABS: Troponin I 9.978 ng/mL (< 0.028)
--- NOTE | 2017-12-26 20:09 | PDOC.CTH ---
Cardiology Progress Note - Subjective He is doing well. He denies any chest pain, tightness, pressure. He had an episode of SOB earlier this morning but is better now. - Objective Vital Signs Temp Pulse Resp BP BP Pulse Ox 12/26/17 17:00 96.5 F L 90 16 111/60 92 L 12/26/17 16:00 96 12/26/17 12:00 97.4 F L 76 18 108/70 98 12/26/17 09:14 171/86 H 12/26/17 09:13 171/86 H Weight 195 lb 7 oz 12/25/17 12/26/17 12/27/17 06:59 06:59 06:59 Intake Total 750 1260 Balance 750 1260 - Physical Examination General/Neuro: alert & oriented x3, NAD Neck: no JVD present Lungs: unlabored respirations Heart: RRR Abdomen: NT/ND Extremities: + edema B (1+) - Telemetry Telemetry Rhythm: NSR - Labs Result Diagrams: 12/26/17 05:25 12/26/17 00:28 Troponin/CKMB Troponin I 9.978 ng/mL (< 0.028) H* 12/26/17 12:00 - Assessment/Plan 1. NSTEMI 2. Acute on chronic systolic heart failure. 3. S/P CABG 4. Ischemic CM EF at 45-50% on echo today. 5. Chronic anemia, possibly blood loss. 6. Late presentation myocardial infarction. Inferior likely on Echo. PLAN: - Continue full anticoagulation for 48 hrs total. He is currently not interested oin a herat catheterization as he does not gfeel he had a heart attack. He may agree later in this admission. - If LHC done will do BMS due to anemia. - Continue IV lasix today. May switch to PO tomorrow.
[2017-12-26] MEDS: Enoxaparin Sodium 100 MG/ML SYRINGE SC SCH (20:28)
[2017-12-27 05:46] LABS: Iron 19 ug/dL (65-175); Iron Binding Capacity, Total 275 mcg/dL (261-462)
[2017-12-27 05:47] LABS: ALT (SGPT) Less than 7 U/L (8-55); AST (SGOT) 12 U/L (5-34); Albumin 3.1 g/dL (3.4-4.8); Alkaline Phosphatase 65 U/L (40-150); Anion Gap 13 mmol/L (10-20); BUN (Urea Nitrogen) 22 mg/dL (8.4-25.7); Bilirubin, Total 0.4 mg/dL (0.2-1.2); Calc. Creatinine Clearance 62 mL/min (70-130); Calcium 8.4 mg/dL (7.8-10.44); Carbon Dioxide 26 mmol/L (23-31); Chloride 104 mmol/L (98-107); Estimated GFR-MDRD 49; Globulin 2.9 g/dL (2.4-3.5); Glucose 137 mg/dL (80-115); Iron 18 ug/dL (65-175); Iron Binding Capacity, Total 280 mcg/dL (261-462); Potassium 3.4 mmol/L (3.5-5.1); Sodium 140 mmol/L (136-145)
[2017-12-27] MEDS: Furosemide 40 MG/4 ML VIAL SLOW IVP SCH (06:01)
[2017-12-27 06:13] LABS: #Basophils 0.1 thou/uL (0.0-0.2); #Eosinphils 0.7 thou/uL (0.0-0.7); #Lymphocytes 2.8 thou/uL (1.20-3.40); #Monocytes 1.1 thou/uL (0.11-0.59); #Neutrophils 7.5 thou/uL (1.40-6.50); %Basophils 0.5 % (0.0-1.0); %Eosinophils 5.4 % (0.0-10.0); %Lymphocytes 23.2 % (21.0-51.0); %Monocytes 8.8 % (0.0-10.0); %Neutrophils 62.1 % (42.0-75.0); Hemoglobin 9.1 g/dL (14.0-18.0); Hypochromia MODERATE=16-30 cells (100X) (0-5/hpf); MDiff Complete? YES; Mean Corpuscular Hemoglobin 20.7 pg (27.0-31.0); Mean Corpuscular Volume 66.7 fL (78.0-98.0); Mean Platelet Volume 10.7 fL (7.4-10.4); Microcytosis SLIGHT = 6-15 cells (100X) (0-5/hpf); Ovalocytes SLIGHT = 2-5 cells (100X) (0-1/hpf); PLT Morphology Comment Appears Adequate; Platelet Count 294 thou/uL (130-400); RBC Distribution Width 23.1 % (11.5-14.5); Red Blood Cell (RBC) Count 4.39 mill/uL (4.70-6.10); White Blood Cell (WBC) Count 12.1 thou/uL (4.8-10.8)
--- NOTE | 2017-12-27 09:05 | PDOC.FM ---
- Subjective Subjective: No acute events overnight. Endorses abdominal pain - Objective Vital Signs & Weight: Vital Signs (12 hours) Temp Pulse Resp BP Pulse Ox 12/27/17 04:27 98.3 F 70 16 145/72 H 95 12/27/17 00:20 97.3 F L 68 16 134/69 95 Weight Weight 83.631 kg I&O: 12/26/17 12/27/17 12/28/17 06:59 06:59 06:59 Intake Total 750 1260 Balance 750 1260 Result Diagrams: 12/27/17 04:55 12/27/17 04:55 <Arianna Gonzalez - Last Filed: 12/27/17 16:38> - Objective Vital Signs & Weight: Vital Signs (12 hours) Temp Pulse Resp BP BP Pulse Ox 12/27/17 11:43 98.2 F 65 16 120/67 12/27/17 09:41 109/73 12/27/17 09:40 109/73 12/27/17 08:00 99.2 F 65 16 109/73 96 Weight Weight 83.631 kg I&O: 12/26/17 12/27/17 12/28/17 06:59 06:59 06:59 Intake Total 750 1260 Balance 750 1260 Result Diagrams: 12/27/17 04:55 12/27/17 04:55 <Jessica Aaron - Last Filed: 12/27/17 16:49> Phys Exam - Physical Examination HEENT: PERRLA, TM's clear Respiratory: no wheezing, no rales, no rhonchi, clear to auscultation bilateral Cardiovascular: RRR Gastrointestinal: soft tender to palpation in epigastric area Musculoskeletal: no edema, pulses present RUE weakness, able to squeeze fingers but unable to move limb Deviation from normal: a&o x1 Deviation from normal: no peripheral edema <Arianna Gonzalez - Last Filed: 12/27/17 16:38> Dx/Plan (1) NSTEMI (non-ST elevated myocardial infarction) Code(s): I21.4 - NON-ST ELEVATION (NSTEMI) MYOCARDIAL INFARCTION Status: Acute (2) Benign prostatic hyperplasia Code(s): N40.0 - BENIGN PROSTATIC HYPERPLASIA WITHOUT LOWER URINRY TRACT SYMP Status: Chronic (3) CKD (chronic kidney disease), stage III Code(s): N18.3 - CHRONIC KIDNEY DISEASE, STAGE 3 (MODERATE) Status: Chronic (4) Coronary artery disease Code(s): I25.10 - ATHSCL HEART DISEASE OF [place] CORONARY ARTERY W/O ANG PCTRS Status: Chronic Qualifiers: Coronary Disease-Associated Artery/Lesion type: bypass graft [place] vs. transplanted heart: [place] heart (5) Hyperlipemia Code(s): E78.5 - HYPERLIPIDEMIA, UNSPECIFIED Status: Chronic (6) Hypertension Code(s): I10 - ESSENTIAL (PRIMARY) HYPERTENSION Status: Chronic - Plan Plan: 67 yo M with NSTEMI and AMS 1. AMS -likely to global hypoperfusion from NSTEMI vs. delirium -denies cardiac cath per dr. lee -talked with daughter (AURELIA) who desires cath if option. discuss with dr. lee if cath is an option due to his anemia -downward trending trops, denies CP 2. iron def anemia -h/h stable -likely GI bleed -FOBT pending BM -consider outpt colonoscopy. per dr. mccullough pt had poor prep colonoscopy w/ dr pritchett-consider repeat 3. acute on cCHF -continue IV lasix, but will decrease to 20 due to HUBERT. consider switching to po lasix -daily weights -strict I/O -non hypoxic at 2.5L 4. HUBERT -worsening from yesterday -likely prerenal -dec lasix dose -continue to monitor 5. No UTI -d/c antibiotics Plan discussed with Dr. Aaron <Arianna Gonzalez - Last Filed: 12/27/17 16:38> Attending Addendum - Attending Addendum Date/Time: 12/27/17 [id number] I personally evaluated the patient and discussed the management with Dr. Gonzalez. I agree with the History, Examination, Assessment and Plan documented above with any addition or exceptions noted below. Will discuss plan of care with patient's daughter. Does she desire further cardiac workup. Dr. Mccullough has recommended discussing anemia with Dr. Pritchett and we will coordinate this today. f/u with cardiology recs. Adjust lasix dose as creatinine increased today. <Jessica Aaron - Last Filed: 12/27/17 16:49>
[2017-12-27] MEDS ORDERED: Furosemide 40 MG/4 ML VIAL SLOW IVP SCH (09:24)
[2017-12-27] MEDS ORDERED: Lactated Ringer's 1,000 ML IV SCH (09:30)
[2017-12-27] MEDS: cefTRIAXone\\ROCEPHIN 1 GM in Sodium Chloride 0.9% 100 ML IVPB SCH (09:39)
[2017-12-27] MEDS: Lisinopril 20 MG TAB PO SCH (09:40)
[2017-12-27] MEDS: Allopurinol 300 MG TAB PO SCH (09:40)
[2017-12-27] MEDS: Metoclopramide HCl 10 MG TAB PO SCH ×3 (09:40→19:48)
[2017-12-27] MEDS: Finasteride 5 MG TAB PO SCH (09:40)
[2017-12-27] MEDS: Carvedilol 6.25 MG TAB PO SCH ×2 (09:41→19:48)
[2017-12-27] MEDS: Multivitamin W/ Minerals 1 TAB PO SCH (09:41)
[2017-12-27] MEDS: Ferrous Sulfate 325 MG TAB PO SCH ×2 (09:41→17:57)
[2017-12-27] MEDS: HumaLOG 300 UNITS/3 ML VIAL SC SCH ×3 (09:42→17:50)
[2017-12-27] MEDS: Azithromycin 500 MG in Sodium Chloride 0.9% 250 ML 250 ML IVPB SCH (09:42)
[2017-12-27] MEDS: Enoxaparin Sodium 100 MG/ML SYRINGE SC SCH ×2 (09:43→19:49)
[2017-12-27] MEDS: Insulin Glargine 70 UNITS in Pre-Filled Syringe 1 EACH SC SCH (11:32)
[2017-12-27 12:07] LABS: EliA Celiac New Method **** NEW METHOD ****; t-Transglutaminase (tTG) IgA 0.3 EliAU/mL (<7 Negative); t-Transglutaminase (tTG) IgG 0.9 EliAU/mL (<7 Negative)
--- NOTE | 2017-12-27 16:57 | PDOC.CTH ---
Cardiology Progress Note - Subjective Doing well. No chest pain, tightness, pressure. SOB is back to baseline. - Objective Vital Signs Temp Pulse Resp BP BP Pulse Ox 12/27/17 11:43 98.2 F 65 16 120/67 12/27/17 09:41 109/73 12/27/17 09:40 109/73 12/27/17 08:00 99.2 F 65 16 109/73 96 Weight 184 lb 6 oz 12/26/17 12/27/17 12/28/17 06:59 06:59 06:59 Intake Total 750 1260 Balance 750 1260 - Physical Examination General/Neuro: alert & oriented x3, NAD Neck: no JVD present Lungs: CTA, unlabored respirations Heart: RRR Abdomen: NT/ND Extremities: + edema B (trace) - Telemetry Telemetry Rhythm: NSR - Labs Result Diagrams: 12/27/17 04:55 12/27/17 04:55 Troponin/CKMB Troponin I 9.978 ng/mL (< 0.028) H* 12/26/17 12:00 - Assessment/Plan 1. NSTEMI 2. Acute on chronic systolic heart failure. 3. S/P CABG 4. Ischemic CM EF at 45-50% on echo this hospital stay. 5. Chronic anemia, possibly blood loss. 6. Late presentation myocardial infarction. Inferior likely on Echo. 7. HUBERT on CKD. PLAN: - Seems euvolemic. Will place on Lasix daily PO at 20 mg. - Small spike on creatinine likely from overdiuresis. - Hgb slowly coming down again. -We spoke at length about possible doing a left heart cath and he currently would like to have conservative therapy given the risk of bleeding with blood thinners and his underlying anemia. - Will complete 48 hrs of full anticoagulation and may discharge back to his NH after that as he remains asymptomatic and he likely completed his FL.
[2017-12-27 23:25] LABS: Hemoglobin 9.6 g/dL (14.0-18.0); Platelet Count 318 thou/uL (130-400)
--- NOTE | 2017-12-28 05:56 | PDOC.FM ---
- Objective Vital Signs & Weight: Vital Signs (12 hours) Temp Pulse Resp BP BP Pulse Ox 12/28/17 03:38 97.9 F 68 14 128/70 95 12/27/17 19:48 129/69 12/27/17 19:46 99.0 F 75 16 129/69 93 L Weight Weight 83.631 kg I&O: 12/26/17 12/27/17 12/28/17 06:59 06:59 06:59 Intake Total 750 1260 1250 Balance 750 1260 1250 Result Diagrams: 12/27/17 23:14 12/27/17 23:14 <Arianna Gonzalez - Last Filed: 12/29/17 05:56> - Objective Vital Signs & Weight: Vital Signs (12 hours) Temp Pulse Resp BP Pulse Ox 12/29/17 11:38 97.9 F 68 16 138/66 91 L 12/29/17 08:00 98 F 63 16 93 L 12/29/17 07:26 98 F 63 16 136/63 93 L 12/29/17 03:54 97.8 F 67 15 149/72 H 95 Weight Weight 84.776 kg I&O: 12/28/17 12/29/17 12/30/17 06:59 06:59 06:59 Intake Total 1250 1520 Balance 1250 1520 Result Diagrams: 12/29/17 01:05 12/29/17 01:05 <Jessica Aaron - Last Filed: 12/29/17 14:27> Dx/Plan (1) NSTEMI (non-ST elevated myocardial infarction) Code(s): I21.4 - NON-ST ELEVATION (NSTEMI) MYOCARDIAL INFARCTION Status: Acute (2) Benign prostatic hyperplasia Code(s): N40.0 - BENIGN PROSTATIC HYPERPLASIA WITHOUT LOWER URINRY TRACT SYMP Status: Chronic (3) CKD (chronic kidney disease), stage III Code(s): N18.3 - CHRONIC KIDNEY DISEASE, STAGE 3 (MODERATE) Status: Chronic (4) Coronary artery disease Code(s): I25.10 - ATHSCL HEART DISEASE OF [place] CORONARY ARTERY W/O ANG PCTRS Status: Chronic Qualifiers: Coronary Disease-Associated Artery/Lesion type: bypass graft [place] vs. transplanted heart: [place] heart (5) Hyperlipemia Code(s): E78.5 - HYPERLIPIDEMIA, UNSPECIFIED Status: Chronic (6) Hypertension Code(s): I10 - ESSENTIAL (PRIMARY) HYPERTENSION Status: Chronic - Plan Plan: 67 yo M with NSTEMI and AMS 1. AMS -most likely to delirium -remains A&O x1 but alert, awake, interactive -continue to orient -need to assess medical competency 2. NSTEMI -denied cardiac cath yesterday per Dr. Rob's note: risk of bleeding with anticoagulation and h/o of suspected GI bleeding -continue anticoagulation,antiplatelets -obtain records 2. iron def anemia -likely GI bleed -h/h stable/improved, on oral iron -FOBT negative -recent colonoscopy was poor prep, reportedly found tubular adenoma-f/u with dr. araujo -reported recent egd showed gastritis-f/u dr. araujo 3. CHFrEF -discontinued IV lasix -added 20mg po lasix -daily weights -strict I/O -non-hypoxic on RA 4. HUBERT, resolved -creatinine improved, at baseline Plan discussed with Dr. Aaron <Arianna Gonzalez - Last Filed: 12/29/17 05:56> Attending Addendum - Attending Addendum Date/Time: 12/28/17 1126 I personally evaluated the patient and discussed the management with Dr. Gonzalez. I agree with the History, Examination, Assessment and Plan documented above with any addition or exceptions noted below. The patient is now considering cath. Will coordinate with patient's family and with cardiology about whether a procedure is indicated. <Jessica Aaron - Last Filed: 12/29/17 14:27>
[2017-12-28 06:04] LABS: ALT (SGPT) Less than 7 U/L (8-55); AST (SGOT) 11 U/L (5-34); Albumin 3.2 g/dL (3.4-4.8); Alkaline Phosphatase 62 U/L (40-150); Anion Gap 12 mmol/L (10-20); BUN (Urea Nitrogen) 26 mg/dL (8.4-25.7); Bilirubin, Total 0.4 mg/dL (0.2-1.2); Calc. Creatinine Clearance 62 mL/min (70-130); Calcium 8.4 mg/dL (7.8-10.44); Carbon Dioxide 28 mmol/L (23-31); Chloride 104 mmol/L (98-107); Estimated GFR-MDRD 53; Globulin 2.9 g/dL (2.4-3.5); Glucose 87 mg/dL (80-115); Potassium 3.2 mmol/L (3.5-5.1); Protein, Total 6.1 g/dL (5.8-8.1); Sodium 141 mmol/L (136-145)
[2017-12-28 08:49] LABS: #Eosinphils 0.6 thou/uL (0.0-0.7); #Lymphocytes 2.6 thou/uL (1.20-3.40); #Monocytes 1.1 thou/uL (0.11-0.59); #Neutrophils 7.4 thou/uL (1.40-6.50); %Basophils 0.2 % (0.0-1.0); %Eosinophils 5.3 % (0.0-10.0); %Lymphocytes 21.8 % (21.0-51.0); %Monocytes 9.4 % (0.0-10.0); %Neutrophils 63.3 % (42.0-75.0); Elliptocytes SLIGHT = 2-5 cells (100X) (0-1/hpf); Hemoglobin 9.4 g/dL (14.0-18.0); Hypochromia MODERATE=16-30 cells (100X) (0-5/hpf); MDiff Complete? YES; Mean Corpuscular HGB CONC 31.4 g/dL (32.0-36.0); Mean Corpuscular Hemoglobin 21.1 pg (27.0-31.0); Mean Corpuscular Volume 67.2 fL (78.0-98.0); Mean Platelet Volume 10.5 fL (7.4-10.4); Microcytosis MODERATE=15-30 cells (100X) (0-5/hpf); Ovalocytes SLIGHT = 2-5 cells (100X) (0-1/hpf); PLT Morphology Comment Appears Adequate; Platelet Count 313 thou/uL (130-400); Polychromasia SLIGHT = 2-3 cells (100X) (0-2/hpf); RBC Distribution Width 23.6 % (11.5-14.5); Red Blood Cell (RBC) Count 4.47 mill/uL (4.70-6.10); White Blood Cell (WBC) Count 11.7 thou/uL (4.8-10.8)
[2017-12-28] MEDS ORDERED: Furosemide 20 MG TAB PO SCH (09:00)
[2017-12-28] MEDS: Enoxaparin Sodium 100 MG/ML SYRINGE SC SCH ×2 (09:38→20:09)
[2017-12-28] MEDS: Insulin Glargine 70 UNITS in Pre-Filled Syringe 1 EACH SC SCH (09:38)
[2017-12-28] MEDS: Ferrous Sulfate 325 MG TAB PO SCH ×2 (09:39→17:19)
[2017-12-28] MEDS: Metoclopramide HCl 10 MG TAB PO SCH ×3 (09:39→20:09)
[2017-12-28] MEDS: Finasteride 5 MG TAB PO SCH (09:39)
[2017-12-28] MEDS: Carvedilol 6.25 MG TAB PO SCH ×2 (09:39→20:09)
[2017-12-28] MEDS: Allopurinol 300 MG TAB PO SCH (09:39)
[2017-12-28] MEDS: Lisinopril 20 MG TAB PO SCH (09:40)
[2017-12-28] MEDS: HumaLOG 300 UNITS/3 ML VIAL SC SCH ×3 (09:41→17:19)
[2017-12-28] MEDS: Multivitamin W/ Minerals 1 TAB PO SCH (09:41)
--- NOTE | 2017-12-28 17:27 | PDOC.CTH ---
Cardiology Progress Note - Subjective He has maintained his Hgb. He is a little more confused today. No chest pain. - Objective Vital Signs Temp Pulse Pulse Pulse Resp BP BP 12/28/17 15:29 99.3 F 72 16 12/28/17 11:54 99.6 F 79 16 12/28/17 11:25 73 72 120/62 133/61 12/28/17 08:00 98.9 F 72 18 12/28/17 07:51 98.9 F 72 18 BP Pulse Ox Pulse Ox Pulse Ox 12/28/17 15:29 102/55 L 92 L 12/28/17 11:54 130/60 92 L 12/28/17 11:25 90 L 92 L 12/28/17 08:00 97 12/28/17 07:51 132/70 97 Weight 186 lb 6.4 oz 12/27/17 12/28/17 12/29/17 06:59 06:59 06:59 Intake Total 1260 1250 Balance 1260 1250 - Physical Examination General/Neuro: NAD, other: (oriented to person only. ) Neck: no JVD present Lungs: CTA, unlabored respirations Heart: RRR Abdomen: NT/ND Extremities: + edema B (1+) - Telemetry Telemetry Rhythm: NSR - Labs Result Diagrams: 12/28/17 05:08 12/28/17 05:08 Troponin/CKMB Troponin I 9.978 ng/mL (< 0.028) H* 12/26/17 12:00 - Assessment/Plan 1. NSTEMI 2. Acute on chronic systolic heart failure. 3. S/P CABG 4. Ischemic CM EF at 45-50% on echo this hospital stay. 5. Chronic anemia, possibly blood loss. 6. Late presentation myocardial infarction. Inferior likely on Echo. 7. HUBERT on CKD. PLAN: - Seems euvolemic. Will place on Lasix daily PO at 20 mg. - Small spike on creatinine likely from overdiuresis. - Family interested in C. - Hgb stable. - Will plan on LHC on . BMS if needed.
[2017-12-28] MEDS ORDERED: Dextrose 50% Abboject 50 ML SYRINGE ONE (20:49)
[2017-12-29] MEDS ORDERED: Potassium Chloride 20 MEQ TAB PO SCH (02:15)
[2017-12-29 04:33] LABS: #Eosinphils 0.2 thou/uL (0.0-0.7); #Lymphocytes 2.2 thou/uL (1.20-3.40); #Neutrophils 7.9 thou/uL (1.40-6.50); %Basophils 0.4 % (0.0-1.0); %Eosinophils 1.9 % (0.0-10.0); %Lymphocytes 19.2 % (21.0-51.0); %Monocytes 9.2 % (0.0-10.0); %Neutrophils 69.3 % (42.0-75.0); Hemoglobin 9.9 g/dL (14.0-18.0); Mean Corpuscular HGB CONC 30.5 g/dL (32.0-36.0); Mean Corpuscular Hemoglobin 20.9 pg (27.0-31.0); Mean Corpuscular Volume 68.5 fL (78.0-98.0); Mean Platelet Volume 10.9 fL (7.4-10.4); Platelet Count 282 thou/uL (130-400); RBC Distribution Width 24.1 % (11.5-14.5); Red Blood Cell (RBC) Count 4.74 mill/uL (4.70-6.10); White Blood Cell (WBC) Count 11.3 thou/uL (4.8-10.8)
[2017-12-29 04:37] LABS: ALT (SGPT) 7 U/L (8-55); AST (SGOT) 14 U/L (5-34); Albumin 3.4 g/dL (3.4-4.8); Alkaline Phosphatase 66 U/L (40-150); Anion Gap 13 mmol/L (10-20); BUN (Urea Nitrogen) 27 mg/dL (8.4-25.7); Bilirubin, Total 0.4 mg/dL (0.2-1.2); Calc. Creatinine Clearance 67 mL/min (70-130); Calcium 8.8 mg/dL (7.8-10.44); Carbon Dioxide 24 mmol/L (23-31); Chloride 104 mmol/L (98-107); Estimated GFR-MDRD 58; Glucose 161 mg/dL (80-115); Potassium 4.2 mmol/L (3.5-5.1); Protein, Total 6.4 g/dL (5.8-8.1); Sodium 137 mmol/L (136-145)
--- NOTE | 2017-12-29 06:05 | PDOC.FM ---
Addendum entered and electronically signed by Arianna Gonzalez MD 12/29/17 12:05 : Will order UA, UCx, CXR, Blood Cx to r/o infection Original Note: - Subjective Subjective: Hypglycemic overnight at 49, protocol initiated. Yesica ventura called for pt. non- responsive, non-verbal, but awake, sitting up in bed. This morning was A&O x1. A little sleeper since waken from sleep. - Objective Vital Signs & Weight: Vital Signs (12 hours) Temp Pulse Pulse Resp Resp BP BP 12/29/17 03:54 97.8 F 67 15 12/29/17 01:03 60 16 121/65 12/29/17 00:00 97.3 F L 62 16 12/28/17 20:15 66 12/28/17 20:09 189/90 H 12/28/17 20:00 97.5 F L 66 18 BP Pulse Ox Pulse Ox 12/29/17 03:54 149/72 H 95 12/29/17 01:03 95 12/29/17 00:00 131/68 98 12/28/17 20:15 171/82 H 94 L 12/28/17 20:09 12/28/17 20:00 189/90 H 89 L Weight Weight 84.55 kg I&O: 12/27/17 12/28/17 12/29/17 06:59 06:59 06:59 Intake Total 1260 1250 720 Balance 1260 1250 720 Result Diagrams: 12/29/17 01:05 12/29/17 01:05 <Arianna Gonzalez - Last Filed: 12/29/17 09:05> - Objective Vital Signs & Weight: Vital Signs (12 hours) Temp Pulse Resp BP Pulse Ox 12/29/17 15:53 98.4 F 73 16 134/66 90 L 12/29/17 11:38 97.9 F 68 16 138/66 91 L 12/29/17 08:00 98 F 63 16 93 L 12/29/17 07:26 98 F 63 16 136/63 93 L Weight Weight 84.776 kg I&O: 12/28/17 12/29/17 12/30/17 06:59 06:59 06:59 Intake Total 1250 1520 720 Balance 1250 1520 720 Result Diagrams: 12/29/17 01:05 08/15/18 01:05 <AgnieszkaJessica - Last Filed: 12/29/17 18:31> Phys Exam - Physical Examination Respiratory: no wheezing, no rales, no rhonchi, clear to auscultation bilateral Deviation from normal: A&O x1 Deviation from normal: no peripheral edema, pedal pulses palpable <GonzalezArianna - Last Filed: 12/29/17 09:05> Dx/Plan (1) NSTEMI (non-ST elevated myocardial infarction) Code(s): I21.4 - NON-ST ELEVATION (NSTEMI) MYOCARDIAL INFARCTION Status: Acute (2) Benign prostatic hyperplasia Code(s): N40.0 - BENIGN PROSTATIC HYPERPLASIA WITHOUT LOWER URINRY TRACT SYMP Status: Chronic (3) CKD (chronic kidney disease), stage III Code(s): N18.3 - CHRONIC KIDNEY DISEASE, STAGE 3 (MODERATE) Status: Chronic (4) Coronary artery disease Code(s): I25.10 - ATHSCL HEART DISEASE OF [place] CORONARY ARTERY W/O ANG PCTRS Status: Chronic Qualifiers: Coronary Disease-Associated Artery/Lesion type: bypass graft [place] vs. transplanted heart: [place] heart (5) Hyperlipemia Code(s): E78.5 - HYPERLIPIDEMIA, UNSPECIFIED Status: Chronic (6) Hypertension Code(s): I10 - ESSENTIAL (PRIMARY) HYPERTENSION Status: Chronic - Plan Plan: 67 yo M with NSTEMI and AMS 1. AMS -most likely to delirium from change in scenery -remains A&O x1 but alert, awake, interactive -continue to orient -continue to consider other sources of infection 2. NSTEMI -Dr. Delarosa will cath on -hold lovenox in AM -H/H stable, no requiring transfusions since last one -continue aspirin, lovenox, coreg 3. HUBERT -likely prerenal from over-diuresis -will give 500cc bolus 4. Neutrophilic leukocytosis -no UTI 5. Iron def anemia -likely from bleeding -prior colonoscopy poor prep -(-)FOBT, H/H stable -stable: most likely will be able to work up outpt 5. CHFrEF -discontinued lasix due to pre-renal HUBERT. euvolemic this AM. lost 4kg since admission. will monitor for signs of fluid overload, will give lasix if needed -daily weights, strict I/O -non-hypoxic on 2L Dispo: Cath Plan discussed with Dr. Aaron <Arianna Gonzalez - Last Filed: 12/29/17 09:05> Attending Addendum - Attending Addendum Date/Time: 12/29/171828 I personally evaluated the patient and discussed the management with Dr. Gonzalez. I agree with the History, Examination, Assessment and Plan documented above with any addition or exceptions noted below. The patient had an episode overnight with hypoglycemia. Early this morning he was sitting up non-responsive. WBC is mildly elevated. Will repeat cultures to verify there is no infection. Altered mental status may have been from hypoglycemia. During rounds patient was back to baseline. Plan for heart cath tomorrow. <Jessica Aaron - Last Filed: 12/29/17 18:31>
--- NOTE | 2017-12-29 06:09 | PDOC.EVN ---
Event Note - Event Note Event Note: Yesica Whitehead was called at approximately 01:00AM for AMS. Patient has hx of Alzheimer's disease and is oriented to person at baseline. Patient overnight was unable to verbalize name or . He was not agitated or belligerent. No concerns noted. He was looking around the room and covering his mouth with his left hand when yawning. BG earlier in the shift was 50s, but about an hour before current episode, it was >150. Blood was drawn and CT head was done, which were normal. VSS. Exam unremarkable except for right sided weakness of upper and lower extremities which is stable from hx of prior stroke. Continued to monitor the rest of the night with no significant events. <Perez Andrade - Last Filed: 12/30/17 00:31> Attending Addendum - Attending Addendum Date/Time: 12/30/[address] Andrade at time of yesica whitehead. <Aristides Llamas - Last Filed: 12/30/17 05:35>
--- NOTE | 2017-12-29 07:48 | CT ---
CT OF HEAD NONCONTRAST: COMPARISON: 12/25/17. INDICATION: Stroke. Altered mental status. Nonverbal patient. FINDINGS: There is moderate chronic microvascular ischemic disease with a prominent ventricular system, grossly stable. Scattered remote lacunar infarctions of the deep [place] nuclei are grossly stable. No intrac ranial hemorrhage, mass effect, or midline shift. Imaged paranasal sinuses are clear. IMPRESSION: 1. Stable head CT, without acute intracranial hemorrhage or mass effect. 2. Moderate chronic microvascular ischemic disease and prominence of the ventricular system are agai n demonstrated. POS: [facility]
[2017-12-29] MEDS: Metoclopramide HCl 10 MG TAB PO SCH ×3 (08:42→20:57)
[2017-12-29] MEDS: Allopurinol 300 MG TAB PO SCH (08:42)
[2017-12-29] MEDS: Carvedilol 6.25 MG TAB PO SCH ×2 (08:42→20:58)
[2017-12-29] MEDS: Lisinopril 20 MG TAB PO SCH (08:42)
[2017-12-29] MEDS: Finasteride 5 MG TAB PO SCH (08:42)
[2017-12-29] MEDS: Insulin Glargine 70 UNITS in Pre-Filled Syringe 1 EACH SC SCH (08:42)
[2017-12-29] MEDS: Ferrous Sulfate 325 MG TAB PO SCH ×2 (08:42→16:51)
[2017-12-29] MEDS: Enoxaparin Sodium 100 MG/ML SYRINGE SC SCH (08:43)
[2017-12-29] MEDS: Multivitamin W/ Minerals 1 TAB PO SCH (08:43)
[2017-12-29] MEDS: HumaLOG 300 UNITS/3 ML VIAL SC SCH ×3 (08:43→16:51)
[2017-12-29] MEDS ORDERED: Lactated Ringer's 500 ML IV SCH (09:15)
--- NOTE | 2017-12-29 11:15 | RAD ---
UPRIGHT FRONTAL CHEST RADIOGRAPH: Date: 12-29-17 Comparison: 12-26-17 History: Evaluate the chest for pneumonia. FINDINGS: Midline sternotomy wires are present. Heart and mediastinal contours are stable. No pneumothorax, ple ural fluid, focal consolidation or alveolar edema. IMPRESSION: No acute findings - stable appearance of the chest. POS: H
[2017-12-29 11:57] LABS: INR-International Normal Ratio 1.1; Prothrombin Time 14.3 SEC (12.0-14.7)
[2017-12-29 11:58] LABS: PTT 55.5 SEC (22.9-36.1)
--- NOTE | 2017-12-29 17:57 | PDOC.CTH ---
Cardiology Progress Note - Subjective He had an episode of confusion last night thought to be due to low sugar. Better now. He is still confused and only oriented to person. - Objective Vital Signs Temp Pulse Resp BP Pulse Ox 12/29/17 15:53 98.4 F 73 16 134/66 90 L 12/29/17 11:38 97.9 F 68 16 138/66 91 L 12/29/17 08:00 98 F 63 16 93 L 12/29/17 07:26 98 F 63 16 136/63 93 L Weight 186 lb 14.4 oz 12/28/17 12/29/17 12/30/17 06:59 06:59 06:59 Intake Total 1250 1520 Balance 1250 1520 - Physical Examination General/Neuro: NAD, other: (Ox1, person) Neck: no JVD present Lungs: CTA, unlabored respirations Heart: RRR Abdomen: NT/ND, soft Extremities: other: (no edema.) - Telemetry Telemetry Rhythm: NSR - Labs Result Diagrams: 12/29/17 01:05 12/29/17 01:05 Troponin/CKMB Troponin I 9.978 ng/mL (< 0.028) H* 12/26/17 12:00 - Assessment/Plan 1. NSTEMI 2. Acute on chronic systolic heart failure. 3. S/P CABG 4. Ischemic CM EF at 45-50% on echo this hospital stay. 5. Chronic anemia, possibly blood loss. 6. Late presentation myocardial infarction. Inferior likely on Echo. 7. HUBERT on CKD. Improved. PLAN: - Continue Lasix daily PO at 20 mg. - I spoke with his Daughter MICHAEL. We spoke a long time about the situation and about posisble outcomes and complication fot he procedure. After discussion we decided against doing a LHC. His LV function is only minimally reduced, he is currently asymptomatic, his NM is almost 2 weeks old, he is still confused and there is no clear indication as to were his bleeding is coming from. - Will do conservative therapy for now. - If there is a clinical change will consider LHC at that time but for now he may be discharged back to his NH any time from cardiac perspective. - May discharge on current regimen, no Plavix due to risk of bleeding.
[2017-12-29] MEDS ORDERED: Atorvastatin Calcium 40 MG TAB PO SCH (21:00)
[2017-12-29 22:18] LABS: Platelet Count 284 thou/uL (130-400)
[2017-12-30 05:12] LABS: ALT (SGPT) 8 U/L (8-55); AST (SGOT) 18 U/L (5-34); Albumin 3.1 g/dL (3.4-4.8); Alkaline Phosphatase 62 U/L (40-150); Anion Gap 13 mmol/L (10-20); BUN (Urea Nitrogen) 18 mg/dL (8.4-25.7); Bilirubin, Total 0.3 mg/dL (0.2-1.2); Calc. Creatinine Clearance 88 mL/min (70-130); Calcium 8.7 mg/dL (7.8-10.44); Carbon Dioxide 22 mmol/L (23-31); Chloride 106 mmol/L (98-107); Estimated GFR-MDRD 79; Globulin 2.8 g/dL (2.4-3.5); Glucose 95 mg/dL (80-115); Potassium 4.1 mmol/L (3.5-5.1); Protein, Total 5.9 g/dL (5.8-8.1); Sodium 137 mmol/L (136-145)
[2017-12-30 05:35] LABS: #Basophils 0.1 thou/uL (0.0-0.2); #Eosinphils 0.6 thou/uL (0.0-0.7); #Lymphocytes 2.2 thou/uL (1.20-3.40); #Monocytes 0.9 thou/uL (0.11-0.59); #Neutrophils 6.5 thou/uL (1.40-6.50); %Basophils 0.5 % (0.0-1.0); %Eosinophils 5.9 % (0.0-10.0); %Lymphocytes 21.6 % (21.0-51.0); %Monocytes 8.6 % (0.0-10.0); %Neutrophils 63.3 % (42.0-75.0); Anisocytosis SLIGHT = 6-15 cells (100X) (0-5/hpf); Hemoglobin 9.5 g/dL (14.0-18.0); MDiff Complete? YES; Mean Corpuscular HGB CONC 31.3 g/dL (32.0-36.0); Mean Corpuscular Hemoglobin 21.7 pg (27.0-31.0); Mean Corpuscular Volume 69.3 fL (78.0-98.0); Mean Platelet Volume 10.3 fL (7.4-10.4); Microcytosis SLIGHT = 6-15 cells (100X) (0-5/hpf); Platelet Count 277 thou/uL (130-400); RBC Distribution Width 23.9 % (11.5-14.5); Red Blood Cell (RBC) Count 4.36 mill/uL (4.70-6.10); White Blood Cell (WBC) Count 10.3 thou/uL (4.8-10.8)
--- NOTE | 2017-12-30 06:35 | PDOC.FM ---
- Objective Vital Signs & Weight: Vital Signs (12 hours) Temp Pulse Resp BP BP Pulse Ox 12/30/17 04:00 98.1 F 68 18 137/77 94 L 12/29/17 20:58 143/65 H 12/29/17 19:25 99.1 F 74 18 143/65 H 95 Weight Weight 84.776 kg I&O: 12/28/17 12/29/17 12/30/17 06:59 06:59 06:59 Intake Total 1250 1520 720 Balance 1250 1520 720 Result Diagrams: 12/30/17 04:07 12/30/17 04:07 Dx/Plan (1) NSTEMI (non-ST elevated myocardial infarction) Code(s): I21.4 - NON-ST ELEVATION (NSTEMI) MYOCARDIAL INFARCTION Status: Acute (2) Benign prostatic hyperplasia Code(s): N40.0 - BENIGN PROSTATIC HYPERPLASIA WITHOUT LOWER URINRY TRACT SYMP Status: Chronic (3) CKD (chronic kidney disease), stage III Code(s): N18.3 - CHRONIC KIDNEY DISEASE, STAGE 3 (MODERATE) Status: Chronic (4) Coronary artery disease Code(s): I25.10 - ATHSCL HEART DISEASE OF [place] CORONARY ARTERY W/O ANG PCTRS Status: Chronic Qualifiers: Coronary Disease-Associated Artery/Lesion type: bypass graft [place] vs. transplanted heart: [place] heart (5) Hyperlipemia Code(s): E78.5 - HYPERLIPIDEMIA, UNSPECIFIED Status: Chronic (6) Hypertension Code(s): I10 - ESSENTIAL (PRIMARY) HYPERTENSION Status: Chronic
--- NOTE | 2017-12-30 06:41 | PDOC.FM ---
- Subjective Subjective: No acute events overnight. Pt is A&O x1. Able to state name and . Still disorineted to place and date. Denies feeling SOB, chest pressure. - Objective MAR Reviewed: Yes Vital Signs & Weight: Vital Signs (12 hours) Temp Pulse Resp BP BP Pulse Ox 12/30/17 04:00 98.1 F 68 18 137/77 94 L 12/29/17 20:58 143/65 H 12/29/17 19:25 99.1 F 74 18 143/65 H 95 Weight Weight 84.776 kg I&O: 12/28/17 12/29/17 12/30/17 06:59 06:59 06:59 Intake Total 1250 1520 720 Balance 1250 1520 720 Result Diagrams: 12/30/17 04:07 12/30/17 04:07 <Arianna Gonzalez - Last Filed: 12/30/17 11:45> - Objective Vital Signs & Weight: Vital Signs (12 hours) Temp Pulse Resp BP BP Pulse Ox 12/30/17 12:06 98.4 F 76 20 146/68 H 95 12/30/17 08:46 143/65 H 12/30/17 08:37 143/65 H 12/30/17 08:25 98.2 F 75 20 133/61 94 L Weight Weight 86.137 kg I&O: 12/29/17 12/30/17 12/31/17 06:59 06:59 06:59 Intake Total 1520 960 Balance 1520 960 Result Diagrams: 12/30/17 04:07 12/30/17 04:07 <Jessica Aaron - Last Filed: 12/30/17 19:30> Phys Exam - Physical Examination Constitutional: NAD HEENT: moist MMs, TM's clear Respiratory: clear to auscultation bilateral fine crackles b/l Cardiovascular: RRR, no significant murmur Gastrointestinal: soft Musculoskeletal: pulses present trace edema b/l Neurological: moves all 4 limbs Deviation from normal: A&O x1 Skin: no rash, normal turgor <Arianna Gonzalez - Last Filed: 12/30/17 11:45> Dx/Plan (1) NSTEMI (non-ST elevated myocardial infarction) Code(s): I21.4 - NON-ST ELEVATION (NSTEMI) MYOCARDIAL INFARCTION Status: Acute (2) Benign prostatic hyperplasia Code(s): N40.0 - BENIGN PROSTATIC HYPERPLASIA WITHOUT LOWER URINRY TRACT SYMP Status: Chronic (3) CKD (chronic kidney disease), stage III Code(s): N18.3 - CHRONIC KIDNEY DISEASE, STAGE 3 (MODERATE) Status: Chronic (4) Coronary artery disease Code(s): I25.10 - ATHSCL HEART DISEASE OF [place] CORONARY ARTERY W/O ANG PCTRS Status: Chronic Qualifiers: Coronary Disease-Associated Artery/Lesion type: bypass graft [place] vs. transplanted heart: [place] heart (5) Hyperlipemia Code(s): E78.5 - HYPERLIPIDEMIA, UNSPECIFIED Status: Chronic (6) Hypertension Code(s): I10 - ESSENTIAL (PRIMARY) HYPERTENSION Status: Chronic (7) Diastolic CHF Code(s): I50.30 - UNSPECIFIED DIASTOLIC (CONGESTIVE) HEART FAILURE Status: Chronic Qualifiers: Heart failure chronicity: acute on chronic Qualified Code(s): I50.33 - Acute on chronic diastolic (congestive) heart failure (8) GERD (gastroesophageal reflux disease) Code(s): K21.9 - GASTRO-ESOPHAGEAL REFLUX DISEASE WITHOUT ESOPHAGITIS Status: Chronic (9) History of CVA with residual deficit Code(s): I69.30 - UNSPECIFIED SEQUELAE OF CEREBRAL INFARCTION Status: Chronic - Plan Plan: 67 yo M with NSTEMI and AMS 1. AMS -most likely to delirium from change in scenery -remains A&O x1 but alert, awake, interactive. non-verbal but awake and alert today will recheck in afternoon. If returns to a&o x1 baseline will d/c back to half-way -continue to orient -white count resolved, afebrile 2. NSTEMI -no cath due to adverse risk outweighing benefits per Dr. Rob 3. HUBERT, resolved 4. Neutrophilic leukocytosis, resolved 5. Iron def anemia -likely from bleeding -prior colonoscopy poor prep -(-)FOBT, H/H stable -will rx f/u with dr. alonzo for outpt workup 6. CHFrEF -continue daily lasix 20 mg po -daily weights, strict I/O 7. Reported Alzheimers -could be contributing to current mental status -will rx to dr. araujo starting donepezil 8. GERD -on protonix 9. H/o CVA -aware, continue to monitor for changes dispo: d/c back to half-way today if resumes baseline of A&O x1 Plan discussed with Dr. Aaron <Arianna Gonzalez - Last Filed: 12/30/17 11:45> Attending Addendum - Attending Addendum Date/Time: 12/30/171928 I personally evaluated the patient and discussed the management with Dr. Gonzalez. I agree with the History, Examination, Assessment and Plan documented above with any addition or exceptions noted below. Cardiology has decided against cardiac cath. Will d/c back to half-way. <Jessica Aaron - Last Filed: 12/30/17 19:30>
[2017-12-30] MEDS: Ferrous Sulfate 325 MG TAB PO SCH (08:34)
[2017-12-30] MEDS: Finasteride 5 MG TAB PO SCH (08:34)
[2017-12-30] MEDS: Lisinopril 20 MG TAB PO SCH (08:37)
[2017-12-30] MEDS: Multivitamin W/ Minerals 1 TAB PO SCH (08:37)
[2017-12-30] MEDS: Metoclopramide HCl 10 MG TAB PO SCH (08:37)
[2017-12-30] MEDS: Allopurinol 300 MG TAB PO SCH (08:46)
[2017-12-30] MEDS: Carvedilol 6.25 MG TAB PO SCH (08:46)
[2017-12-30] MEDS ORDERED: Furosemide 20 MG TAB PO SCH (09:00)
[2017-12-30] MEDS: Insulin Glargine 70 UNITS in Pre-Filled Syringe 1 EACH SC SCH (10:26)
[2017-12-30] MEDS: HumaLOG 300 UNITS/3 ML VIAL SC SCH ×2 (10:32→12:09)
[2017-12-30 12:08] VITALS: BP 146/68; TEMP 98.4
--- NOTE | 2017-12-31 13:41 | EKG ---
Test Reason : Blood Pressure : / mmHG Vent. Rate : 062 BPM Atrial Rate : 062 BPM P-R Int : 146 ms QRS Dur : 104 ms QT Int : 462 ms P-R-T Axes : 017 -31 191 degrees QTc Int : 468 ms Normal sinus rhythm Left axis deviation Left ventricular hypertrophy with repolarization abnormality Abnormal ECG Confirmed by CLARI GALLEGOS ([id number]) on 12/31/2017 1:41:16 PM Referred By: GUILLERMINA *r Confirmed By:CLARI GALLEGOS
--- NOTE | 2018-01-03 02:12 | DIS-2 ---
DATE OF ADMISSION: 12/25/2017 DATE OF DISCHARGE: 12/30/2017 RESIDENT: Arianna Gonzalez, PGY1 ADMITTING ATTENDING: George Sánchez MD DISCHARGE ATTENDING: Jessica Aaron MD CONSULTATION: Cardiology, Dr. Delarosa. PROCEDURES: PRBC transfusion x2. PRIMARY DIAGNOSES: 1. Yti-LG-mnwyphn-elevation myocardial infarction. 2. Altered mental status secondary to Alzheimer dementia versus sundowning. SECONDARY DIAGNOSES: 1. Alzheimer's dementia. 2. Coronary artery disease, status post coronary artery bypass graft. 3. Chronic microcytic anemia. 4. Insulin-dependent diabetes mellitus. 5. Systolic/diastolic heart failure. 6. History of cerebrovascular accident. 7. Gastroesophageal reflux disease. 8. Depression. 9. Chronic kidney disease 3. 10. Resolved acute kidney injury. DISCHARGE MEDICATIONS: 1. Ferrous sulfate 325 mg p.o. b.i.d. with meals. 2. Lasix 20 mg p.o. daily. 3. Atorvastatin 80 mg p.o. daily. 4. Multivitamin 1 tab p.o. daily. 5. Lisinopril 20 mg p.o. daily. 6. Aspirin 81 mg p.o. daily. 7. Allopurinol 300 mg p.o. daily. 8. Reglan 10 mg p.o. t.i.d. 9. Coreg 6.25 mg p.o. b.i.d. 10. Finasteride 5 mg p.o. daily. 11. NovoLog 12 units subcu t.i.d. 12. Protonix 40 mg p.o. daily. 13. Levemir 70 units subcu daily. 14. Magnesium hydroxide p.o. daily p.r.n. for constipation. 15. Loperamide 2 mg p.o. p.r.n. for diarrhea, loose stool. 16. Acetaminophen 650 mg p.o. q.4. hours p.r.n. for pain. HISTORY OF PRESENT ILLNESS AND HOSPITAL COURSE: A 67-year-old male living in a skilled nursing with history of CAD status post CABG, transferred from [place] ED for NSTEMI. jail reported several-day history of dyspnea, emesis, abdominal pain, cough, and 91% desaturation, which prompted ED visit. Outside ED, troponin was 17.99. Per Cardiology, the patient's NSTEMI was subacute and thought to have occurred a week ago and thus no need for emergent intervention at this time. Daughter was also concerned for change in baseline mental status of the patient. Also, the patient experienced acute on chronic CHF exacerbation requiring 2.5 liters of nasal cannula. Chest x-ray was consistent with cardiomegaly and pulmonary congestion. BNP was 2173. Eventually, euvolemic status was achieved with IV Lasix. Multiple O2 weaning trials were attempted, but the patient ultimately remained nonhypoxic at 2.5 liters. The patient developed HUBERT secondary to over diuresis. Patient was switched to low dose p.o. Lasix 20 mg daily. The patient's mental status remained A&O x1, only to self and date of during whole admission. No identified source of infection despite workup. The patient remained afebrile with resolution of white count. Overnight, code green was called due to patient's decreased verbal responsiveness when asked questions. During his code, he remains awake, vitally stable, and asymptomatic. Repeat CT head was negative for acute CVA. The patient had multiple episodes of this during the remainder of stay. It was later discovered per nurse, that he was choosing not to respond because "he wanted to go home." Also, the patient received PRBC transfusion x2 for acute episode of anemia. Per PCP, Dr. Mccullough, the patient has had a history of iron deficiency anemia with prior GI workup. Attempted to reach Dr. Pritchett to consider in-hospital colonoscopy, but he was out of town. There was suspicion for GI bleeding despite negative FOBT. Color Paste Mixer, Dr. Delarosa, decided against cardiac catheterization due to the patient's risk of bleeding. This was agreed on by the patient and patient's daughter (AURELIA). Upon discharge, the patient was at admission baseline of A&O x1 and stable on 2.5 liters of O2. DISPOSITION: Stable, nonhypoxic on 2.5 liters of supplemental O2. DISCHARGE INSTRUCTIONS: 1. Location: [facility]. 2. Diet: Heart healthy. 3. Activity: As tolerated. 4. Followup: Please follow up with PCP, Dr. Mccullough, in 3-5 days. [facility]
== END 2017-12-30 15:15 | DRG 280 ==
LOC: ERS 16:46 → 2NO 23:08
PROVIDERS: ADMIT Family Medicine; ATTEND Family Medicine
PROC: 30233N1 Transfusion of Nonautologous Red Blood Cells into Peripheral Vein, Percutaneous Approach (ICD-10-PCS; principal; 2017-12-25)
DX: I21.4 Non-ST elevation (NSTEMI) myocardial infarction (principal); I50.43 Acute on chronic combined systolic (congestive) and diastolic (congestive) heart failure; N17.9 Acute kidney failure, unspecified; I13.0 Hypertensive heart and chronic kidney disease with heart failure and stage 1 through stage 4 chronic kidney disease, or unspecified chronic kidney disease; F05 Delirium due to known physiological condition; I69.351 Hemiplegia and hemiparesis following cerebral infarction affecting right dominant side; E11.22 Type 2 diabetes mellitus with diabetic chronic kidney disease; G30.9 Alzheimer's disease, unspecified; F02.80 Dementia in other diseases classified elsewhere, unspecified severity, without behavioral disturbance, psychotic disturbance, mood disturbance, and anxiety; I25.10 Atherosclerotic heart disease of native coronary artery without angina pectoris; D50.9 Iron deficiency anemia, unspecified; N18.3 Chronic kidney disease, stage 3 (moderate); K21.9 Gastro-esophageal reflux disease without esophagitis; F32.9 Major depressive disorder, single episode, unspecified; M10.9 Gout, unspecified; E78.5 Hyperlipidemia, unspecified; R09.02 Hypoxemia; N40.0 Benign prostatic hyperplasia without lower urinary tract symptoms; I25.5 Ischemic cardiomyopathy; I69.328 Other speech and language deficits following cerebral infarction; Z95.1 Presence of aortocoronary bypass graft; Z95.5 Presence of coronary angioplasty implant and graft; Z79.82 Long term (current) use of aspirin; Z79.4 Long term (current) use of insulin; Z79.899 Other long term (current) drug therapy
CPT/HCPCS: 36415; 36416; 36430; 70450; 71045; 71275; 80053; 81001; 82274; 82728; 82805; 83516; 83540; 83550; 83605; 84484; 85025; 85610; 85730; 86850; 86900; 86901; 87040; 87086; 93005; 93010; 93306; A4216; G8978-GP-CK; G8996-GN-CJ; G8997-GN-CJ; J0456; J0696; J1650; J1940; J2001; J2704; J7050; J7120; P9016

== ENCOUNTER 2018-07-03 14:38 | Observation (INO) | payer MEDICARE, MEDICAID ==
[2018-07-03 15:20] LABS: #Eosinphils 0.2 thou/uL (0.0-0.7); #Lymphocytes 1.7 thou/uL (1.20-3.40); #Monocytes 0.7 thou/uL (0.11-0.59); %Basophils 0.4 % (0.0-1.0); %Eosinophils 1.7 % (0.0-10.0); %Monocytes 6.4 % (0.0-10.0); %Neutrophils 75.6 % (42.0-75.0); Hemoglobin 12.1 g/dL (14.0-18.0); Mean Corpuscular HGB CONC 31.2 g/dL (32.0-36.0); Mean Corpuscular Hemoglobin 23.9 pg (27.0-31.0); Mean Corpuscular Volume 76.7 fL (78.0-98.0); Mean Platelet Volume 8.2 fL (7.4-10.4); Platelet Count 270 thou/uL (130-400); Red Blood Cell (RBC) Count 5.04 mill/uL (4.70-6.10); White Blood Cell (WBC) Count 10.6 thou/uL (4.8-10.8)
[2018-07-03 15:42] LABS: ALT (SGPT) Less than 7 U/L (8-55); AST (SGOT) 9 U/L (5-34); Albumin 3.7 g/dL (3.4-4.8); Alkaline Phosphatase 91 U/L (40-150); Anion Gap 17 mmol/L (10-20); BUN (Urea Nitrogen) 21 mg/dL (8.4-25.7); Bilirubin, Total 0.3 mg/dL (0.2-1.2); CK (CPK) 52 U/L (30-200); Calc. Creatinine Clearance 0 mL/min (70-130); Calcium 9.1 mg/dL (7.8-10.44); Carbon Dioxide 19 mmol/L (23-31); Chloride 109 mmol/L (98-107); Estimated GFR-MDRD 55; Glucose 237 mg/dL (80-115); Lipase 32 U/L (8-78); Potassium 3.8 mmol/L (3.5-5.1); Protein, Total 6.7 g/dL (5.8-8.1); Sodium 141 mmol/L (136-145)
[2018-07-03 16:03] LABS: CKMB 2.8 ng/mL (0-6.6)
--- NOTE | 2018-07-03 16:05 | RAD ---
PORTABLE CHEST ONE VIEW: 07/03/2018 3:19 p.m. HISTORY: Chest pain. COMPARISON: 12/29/2017 FINDINGS: The heart is enlarged. There are changes of median sternotomy. No focal areas of consolidation, pne umothoraces, nuzhat pulmonary edema, or pleural effusions are seen. IMPRESSION: No acute process. POS: MICA
--- NOTE | 2018-07-03 16:14 | PDOC.FPRHP ---
- History of Present Illness Chief Complaint: nausea, abd pain, diarrhea, emesis History of Present Illness: 68 yo M [facility] resident with Alzheimers who presented to the ED for abd pain, nausea, vomiting, diarrhea, SOB, diaphoresis. Per report he has has this for the past 1-2 days. Patient denies fevers, chills, hematochezia. Unknown if he has been given anything to help with symptoms. Of note, he has a PMH significant for NSTEMI in December 2017. No cath was performed at that time due to being poor candidate and was discharged with medical management. Patient denies chest pain. In the ED, EKG was stable compared to prior despite ST depression and some T wave inversions. Cardiology was consulted and it was determined no need for intervention at this time since no STEMI. - Allergies/Adverse Reactions Allergies Allergy/AdvReac Type Severity Reaction Status Date / Time No Known Allergies Allergy Verified 12/21/17 10:39 - Home Medications Medication Instructions Recorded Confirmed Type Allopurinol 300 mg PO DAILY 02/22/17 07/03/18 History Aspirin Chewable [Aspirin Chewable 81 mg PO DAILY 02/22/17 07/03/18 History Tablet] Carvedilol [Coreg] 6.25 mg PO BID 02/22/17 07/03/18 History Lisinopril [Zestril] 20 mg PO DAILY 02/22/17 07/03/18 History Metoclopramide HCl [Reglan] 10 mg PO TID 02/22/17 07/03/18 History Multivitamin [Multi-Vitamin Daily] 1 tablet PO DAILY 02/22/17 07/03/18 History Finasteride [Proscar] 5 mg PO DAILY tab 02/23/17 07/03/18 Rx Insulin Aspart [Novolog] 15 unit SQ TID 12/21/17 07/03/18 History Insulin Detemir [Levemir] 80 unit SQ DAILY 12/21/17 07/03/18 History Pantoprazole [Protonix] 40 mg PO DAILY 12/21/17 07/03/18 History Acetaminophen 650 mg PO Q4HR PRN 12/26/17 07/03/18 History Loperamide HCl [Loperamide] 2 mg PO ASDIR PRN 12/26/17 07/03/18 History Magnesium Hydroxide [Milk of 30 ml PO DAILY PRN 12/26/17 07/03/18 History Magnesia] Furosemide [Lasix] 20 mg PO DAILY 30 Days tab 12/30/17 07/03/18 Rx Atorvastatin Calcium 80 mg PO HS 07/03/18 07/03/18 History Ferrous Sulfate 220 mg PO BID 07/03/18 07/03/18 History - History PMHx: Hx of NSTEMI, Alzheimers, CAD s/p CABG, chronic microcytic anemia, IDDM2, systolic/diastolic heart failure, hx of CVA, GERD, depression, CKD3 PSHx: CABG FHx: DM2, VA (dad) Social: No drug, alcohol or tobacco - Review of Systems General: denies: fever/chills, weight/appetite/sleep changes Eyes: denies: eye pain, vision changes ENT: denies: nasal congestion, rhinorrhea Respiratory: reports: shortness of breath. denies: cough, congestion Cardiovascular: reports: edema. denies: chest pain, palpitation, orthopnea Gastrointestinal: reports: nausea, vomiting, diarrhea, abdominal pain. denies: GI bleeding Genitourinary: denies: incontinence Skin: denies: rashes, lesions Musculoskeletal: denies: pain, tenderness Neurological: denies: numbness, syncope, weakness Psychological: denies: anxiety, depression - Vital signs BP: [143/65] HR: [79] RR: [18] Tmax: [98] Pox: [98]% on [RA] Wt: [] - Physical Exam Constitutional: NAD -Constitutional: obese body habitus HEENT: normocephalic and atraumatic, PERRLA, no scleral icterus, grossly normal vision Neck: supple Chest: no-tender to palpation Heart: RRR, normal S1/S2 Lungs: CTAB, no respiratory distress, no wheezing -Abdomen: epigastric tenderness to palpation Neurological: no focal deficit -Neurological: RUE and RLE weakness 4/5 edema in BLE 2+ Heme/Lymphatic: no unusual bruising or bleeding Psychiatric: normal mood and affect FMR H&P: Results - Labs Result Diagrams: 07/03/18 15:07 07/03/18 15:07 Lab results: WBC 10.6 thou/uL (4.8-10.8) 07/03/18 15:07 Hgb 12.1 g/dL (14.0-18.0) L 07/03/18 15:07 Hct 38.7 % (42.0-52.0) L 07/03/18 15:07 MCV 76.7 fL (78.0-98.0) L 07/03/18 15:07 Plt Count 270 thou/uL (130-400) 07/03/18 15:07 Neutrophils % 75.6 % (42.0-75.0) H 07/03/18 15:07 Sodium 141 mmol/L (136-145) 07/03/18 15:07 Potassium 3.8 mmol/L (3.5-5.1) 07/03/18 15:07 Chloride 109 mmol/L (98-107) H 07/03/18 15:07 Carbon Dioxide 19 mmol/L (23-31) L 07/03/18 15:07 BUN 21 mg/dL (8.4-25.7) 07/03/18 15:07 Creatinine 1.29 mg/dL (0.7-1.3) 07/03/18 15:07 Glucose 237 mg/dL (80-115) H 07/03/18 15:07 Calcium 9.1 mg/dL (7.8-10.44) 07/03/18 15:07 Total Bilirubin 0.3 mg/dL (0.2-1.2) 07/03/18 15:07 AST 9 U/L (5-34) 07/03/18 15:07 ALT Less than 7 U/L (8-55) L 07/03/18 15:07 Alkaline Phosphatase 91 U/L (40-150) 07/03/18 15:07 Creatine Kinase 52 U/L (30-200) 07/03/18 15:07 CK-MB (CK-2) 2.8 ng/mL (0-6.6) 07/03/18 15:07 Serum Total Protein 6.7 g/dL (5.8-8.1) 07/03/18 15:07 Albumin 3.7 g/dL (3.4-4.8) 07/03/18 15:07 Lipase 32 U/L (8-78) 07/03/18 15:07 - EKG Interpretation EKG: LVH with repolarization ST depression lead I - Radiology Interpretation Chest x-ray Status: image reviewed by me, pending CT scan - abdomen Status: report reviewed by me FMR H&P: A/P - Problem List (1) Gastroenteritis Current Visit: Yes Status: Acute Code(s): K52.9 - NONINFECTIVE GASTROENTERITIS AND COLITIS, UNSPECIFIED (2) Elevated troponin level Current Visit: Yes Status: Acute Code(s): R74.8 - ABNORMAL LEVELS OF OTHER SERUM ENZYMES (3) Benign prostatic hyperplasia Current Visit: No Status: Chronic Code(s): N40.0 - BENIGN PROSTATIC HYPERPLASIA WITHOUT LOWER URINRY TRACT SYMP (4) CKD (chronic kidney disease), stage III Current Visit: No Status: Chronic Code(s): N18.3 - CHRONIC KIDNEY DISEASE, STAGE 3 (MODERATE) (5) Cerebrovascular disease Current Visit: No Status: Chronic Code(s): I67.9 - CEREBROVASCULAR DISEASE, UNSPECIFIED (6) Coronary artery disease Current Visit: No Status: Chronic Code(s): I25.10 - ATHSCL HEART DISEASE OF [place] CORONARY ARTERY W/O ANG PCTRS Qualifiers: Coronary Disease-Associated Artery/Lesion type: bypass graft [place] vs. transplanted heart: [place] heart (7) Dementia Current Visit: No Status: Chronic Code(s): F03.90 - UNSPECIFIED DEMENTIA WITHOUT BEHAVIORAL DISTURBANCE (8) Diabetes mellitus, type II Current Visit: No Status: Chronic (9) Diastolic CHF Current Visit: No Status: Chronic Code(s): I50.30 - UNSPECIFIED DIASTOLIC ( CONGESTIVE) HEART FAILURE Qualifiers: Heart failure chronicity: acute on chronic Qualified Code(s): I50.33 - Acute on chronic diastolic (congestive) heart failure - Plan Likely gastroenteritis -IVF @75 cc due to hx of heart failure -supportive care with zofran -omeprazole -tele/obs overnight Indeterminate troponins -continue to trend -EKG, no acute changes compared to prior -monitor in tele -consult cards if trops continue to rise-will not likely not be a good surgical candidate -ASA, nitro PRN -resume home meds after med rec Systolic/diastolic heart failure -daily weights, strict i/o -resume home meds after med rec Alzheimers Dementia -resume home meds after med rec CAD s/p CABG -see above IDDM2 -sliding scale -ACHS -resume home meds after med rec dvt ppx: lovenox gi ppx: omeprazole dispo: <2 midnight, likely home if improved tmrw and no further cardiac intervention FMR H&P: Upper Level - Pertinent history 68 yo CM with PMH of CAD s/p 4vCABG, HFrEF, Alzheimer's and previous CVA presenting from [facility] for complaints of NVD and abdominal pain. EMS was concerned about STEMI on two lead monitor. EKG in ER was compared to old EKGs from previous hospitalizations and found to be the same. Cardiology was called from the ER and stated it did not sound acute and to follow up pending workup. Daughter, who is pt's MPOA, states she would like him observed overnight as this is how he presented with his last NSTEMI in 12/2017. LHC was not done at that time as pt was deemed too high risk. - Pertinent findings VSS Gen: Obese male in NAD CV: RRR Resp: unlabored, CTAB Abd: obese, BS+, NTTP - Plan Date/Time: 07/03/18 0824 I, Dashawn Marino MD PGY3, have evaluated this patient and agree with findings/ plan as outlined by internet sales associate resident. Pertinent changes/additions are listed here. 1. Likely viral gastroenteritis -Pt appears well on exam and has no acute findings. CBC, CMP, lipase, CXR, CT abd all within normal limits. Pt c/o vomiting and diarrhea but clinically appears at baseline with no concerning findings on work up thus far. -Will place pt on low IVF with history of HF. -If diarrhea continues, collect stool studies. -Zofran PRN. 2. Indeterminate troponin -Extremely low suspicion for acute cardiac pathology. -First troponin 0.097, which is lowest value recorded in all of pt's hospital stays. EKG showed no acute changes. -On last hospitalization, cardiology stated to continue medical management as pt is a poor candidate for LHC. -Trend trops. Continue home medications. FULL code disposition: Admit to observation for anticipated length of stay less than two midnights, pending clinical course. Addendum - Attending - Attending Attestation Date/Time: 07/04/18 6211 I personally evaluated the patient and discussed the management with Dr. Gonzalez I agree with the History, Examination, Assessment and Plan documented above with any addition or exceptions noted below.68 yo male with Alzheimers dementia established CAD s/p CABG presents with nausea, vomiting and abdominal pain from [facility]. EKG with no acute changes EMS was concerned with EKG ST elevation changes in one lead. Troponin 0.019. CT abdomen report pending at time of admission. Highly doubt ACS, patient with prior NSTEMI 12/2017 and not felt to be good candidate for Catherization was medically managed. Discussed with Daughter and will place in overnight observation. Patient is full code will hydrate for suspected AGE and r/o ACS with trending troponins. Patient has been chest pain free the entire time however Daughter concerned this is similiar to prior NSTEMI presentation where troponins reached 17-19 ranges.
--- NOTE | 2018-07-03 16:38 | CT ---
CT ABDOMEN AND PELVIS NONCONTRAST: 07/03/2018 HISTORY: Abdominal pain for three months. Nausea, which began this morning. COMPARISON: None available. FINDINGS: Vascular calcifications are seen in the coronary arteries, as well as involving the visualized lower thoracic aorta, abdominal aorta, and iliac arteries. Bibasilar atelectasis is present. Post surgical changes related to CABG are noted. The patient's arms overly the upper abdomen, resulting in artifact. However, the liver, spleen, panc reas, and bilateral adrenal glands demonstrate a grossly normal nonenhanced CT appearance. The gallbladder is mildly distended. There is increased density material within the gallbladder lume n, which could be related to sludge and/or gallbladder calculi within the gallbladder. There are several subcentimeter, btw-wcjyi-jt-characterize, hypodense lesions noted in each kidney. A nonobstructing superior pole left renal calculus, measuring approximately 2 mm, is present. No apple al or ureteral calculi are seen bilaterally, and there is no hydronephrosis present. Each kidney hinton s demonstrate a lobulated appearance, which may be related to lobulation. The distal sigmoid colon and rectum are distended with fluid-filled fecal material. There is gaseous distention of the transverse colon, which is nonspecific. No dilated loops of small bowel are seen. The appendix is visualized and is normal in caliber. Small fat-containing umbilical hernia is present. No free fluid, fluid collection, or lymphadenopathy is seen in the abdomen or pelvis. Degenerative changes are noted in the spine. IMPRESSION: 1. No acute findings are seen in the abdomen or pelvis. 2. Mild cardiomegaly. 3. Prominent atherosclerotic vascular calcifications. 4. Nonobstructing left renal calculus. 5. Oyx-kpnus-vc-characterize hypodense bilateral renal lesions. 6. No CT evidence of appendicitis. 7. Prominent amount of liquid stool within the distal sigmoid colon and rectum. There are no findin gs to suggest a bowel obstruction. 8. Small fat-containing umbilical hernia. POS: GABRIEL
[2018-07-03] MEDS ORDERED: Ondansetron PF 4 MG/2 ML Vial IVP PRN (18:06)
[2018-07-03] MEDS ORDERED: Dextrose 5% in Water 1,000 ML IV PRN (18:06)
[2018-07-03] MEDS ORDERED: HumaLOG 300 UNITS/3 ML VIAL SC PRN (18:06)
[2018-07-03] MEDS ORDERED: Acetaminophen 325 MG TAB PO PRN (18:06)
[2018-07-03] MEDS ORDERED: Dextrose 50% Abboject 50 ML SYRINGE SLOW IVP PRN (18:06)
[2018-07-03] MEDS ORDERED: Nitroglycerin 0.4 MG TAB (25 Tab Bottle) PO PRN (18:06)
[2018-07-03] MEDS ORDERED: Insulin Regular 300 UNITS/3 ML VIAL SC PRN (18:06)
[2018-07-03 18:10] VITALS: BMI 31.8
[2018-07-03 18:34] LABS: Troponin I 0.092 ng/mL (< 0.028)
[2018-07-03] MEDS ORDERED: Aspirin 325 MG TAB PO SCH (18:50)
[2018-07-03] MEDS: Lactated Ringer's 1,000 ML IV SCH (21:34)
[2018-07-03 21:48] LABS: Troponin I 0.116 ng/mL (< 0.028)
--- NOTE | 2018-07-04 05:33 | PDOC.FM ---
- Subjective Subjective: Patient sleepy this AM. Nods and shakes head in answer to questions, in speaking with nursing he had 1 episode loose stool overnight and 1 smear. Patient nods yes when asked if still nauseated. - Objective Vital Signs & Weight: Vital Signs (12 hours) Temp Pulse Resp BP Pulse Ox 07/04/18 04:52 97.2 F L 72 20 129/75 93 L 07/03/18 21:28 98 F 83 18 136/63 94 L 07/03/18 18:08 98.3 F 69 18 163/88 H 98 Weight Weight 94.982 kg Result Diagrams: 07/03/18 15:07 07/04/18 04:37 Phys Exam - Physical Examination Constitutional: NAD appears droowsy HEENT: moist MMs Neck: no nodes, supple Respiratory: no wheezing, clear to auscultation bilateral Cardiovascular: RRR, no significant murmur Gastrointestinal: soft, non-tender, no distention, positive bowel sounds Musculoskeletal: no edema, pulses present Deviation from normal: flat affect, appears drowsy Skin: no rash, normal turgor Dx/Plan (1) Gastroenteritis Code(s): K52.9 - NONINFECTIVE GASTROENTERITIS AND COLITIS, UNSPECIFIED Status : Acute (2) Systolic and diastolic CHF, chronic Code(s): I50.42 - CHRONIC COMBINED SYSTOLIC AND DIASTOLIC HRT FAIL Status: Chronic (3) Hx of CABG Status: Chronic (4) Insulin dependent diabetes mellitus Code(s): E11.9 - TYPE 2 DIABETES MELLITUS WITHOUT COMPLICATIONS; Z79.4 - ASSISTED (CURRENT) USE OF INSULIN Status: Chronic (5) Elevated troponin level Code(s): R74.8 - ABNORMAL LEVELS OF OTHER SERUM ENZYMES Status: Acute (6) Dementia Code(s): F03.90 - UNSPECIFIED DEMENTIA WITHOUT BEHAVIORAL DISTURBANCE Status: Chronic (7) Diabetes mellitus, type II Status: Chronic (8) Diastolic CHF Code(s): I50.30 - UNSPECIFIED DIASTOLIC (CONGESTIVE) HEART FAILURE Status: Chronic Qualifiers: Heart failure chronicity: acute on chronic Qualified Code(s): I50.33 - Acute on chronic diastolic (congestive) heart failure (9) GERD (gastroesophageal reflux disease) Code(s): K21.9 - GASTRO-ESOPHAGEAL REFLUX DISEASE WITHOUT ESOPHAGITIS Status: Chronic - Plan Plan: Likely Gastroenteritis 2/2 viral infection -IVF @75 cc due to hx of heart failure -supportive care with zofran -omeprazole Indeterminate troponins, improved -Now down trending -EKG, no acute changes compared to prior -ASA, nitro PRN -resume home meds Mixed Systolic/diastolic heart failure -daily weights, strict i/o -resume home meds Alzheimers Dementia -aware CAD s/p CABG -see above IDDM2 -sliding scale -ACHS -resume home insulin detemir 80 units in AM dvt ppx: lovenox gi ppx: omeprazole dispo: discharge likely today as trops down trending, if patient able to tolerate PO Code:full code Addendum - Attending - Attending Attestation Date/Time: 07/04/18 9950 I personally evaluated the patient and discussed the management with Dr. Castillo. I agree with the History, Examination, Assessment and Plan documented above with any addition or exceptions noted below. Patient stable this morning. Will discuss with family if patient is at baseline. Cardiac status stable and no evidence for ACS. If diarrhea continues will need Cdiff studies. Otherwise consider discharge back to facility if at baseline.
[2018-07-04 05:40] LABS: Anion Gap 17 mmol/L (10-20); BUN (Urea Nitrogen) 22 mg/dL (8.4-25.7); Calc. Creatinine Clearance 82 mL/min (70-130); Calcium 8.7 mg/dL (7.8-10.44); Carbon Dioxide 19 mmol/L (23-31); Chloride 110 mmol/L (98-107); Estimated GFR-MDRD 65; Glucose 183 mg/dL (80-115); Potassium 3.7 mmol/L (3.5-5.1); Sodium 142 mmol/L (136-145)
[2018-07-04 06:29] LABS: Troponin I 0.083 ng/mL (< 0.028)
[2018-07-04] MEDS ORDERED: Insulin Glargine 80 UNITS in Pre-Filled Syringe 1 EACH SC SCH (09:00)
[2018-07-04] MEDS ORDERED: Multivitamin W/ Minerals 1 TAB PO SCH (09:00)
[2018-07-04] MEDS ORDERED: Finasteride 5 MG TAB PO SCH (09:00)
[2018-07-04] MEDS ORDERED: Furosemide 20 MG TAB PO SCH (09:00)
[2018-07-04] MEDS ORDERED: Enoxaparin Sodium 40 MG/0.4 ML SYRINGE SC SCH (09:00)
[2018-07-04] MEDS ORDERED: INSULIN DETEMIR 80 UNIT SQ SCH (09:00)
[2018-07-04] MEDS ORDERED: Non-Formulary Item 1 EACH (Insulin Aspart [Novolog] 15 UNIT) SQ SCH (09:00)
[2018-07-04] MEDS ORDERED: Carvedilol 6.25 MG TAB PO SCH (09:00)
[2018-07-04] MEDS ORDERED: Aspirin 325 mg Enteric Coated Tablet PO SCH (09:00)
[2018-07-04] MEDS ORDERED: Lisinopril 20 MG TAB PO SCH (09:00)
[2018-07-04] MEDS ORDERED: HumaLOG 300 UNITS/3 ML VIAL SC PRN ×3 (09:16)
[2018-07-04] MEDS: Lactated Ringer's 1,000 ML IV SCH (09:27)
[2018-07-04] MEDS: Ferrous Sulfate 325 MG TAB PO SCH ×2 (09:28→16:30)
[2018-07-04] MEDS: Metoclopramide HCl 10 MG TAB PO SCH ×2 (09:28→14:36)
[2018-07-04 16:02] VITALS: BP 142/81; TEMP 97.9
[2018-07-04] MEDS ORDERED: Prevnar 13-Val Conj/PF 0.5 ML SYRINGE IM ONE (21:00)
[2018-07-04] MEDS ORDERED: Atorvastatin Calcium 40 MG TAB PO SCH (21:00)
--- NOTE | 2018-07-05 10:16 | DIS ---
DATE OF ADMISSION: 07/03/2018 DATE OF DISCHARGE: 07/04/2018 RESIDENT: Sara Castillo MD. ADMITTING ATTENDING: Loyd Elise MD. DISCHARGE ATTENDING: Nasim Turner MD CONSULTS: None. PROCEDURES: 1. Chest x-ray on 07/03/2018: showed no acute cardiopulmonary process. 2. Abdomen and pelvis CT on 07/03/2018: no acute findings in the abdomen or pelvis. Mild cardiomegaly. Prominent atherosclerotic vascular calcifications. Nonobstructing left renal calculus. Too small to characterize hypodense bilateral renal lesions. No CT evidence of appendicitis. Prominent amount of liquid stool within the distal sigmoid colon and rectum. No findings to suggest a bowel obstruction. Small fat containing umbilical hernia. PRIMARY DIAGNOSIS: Viral gastroenteritis. SECONDARY DIAGNOSES: 1. Elevated troponins, likely secondary to demand ischemia. 2. Mixed systolic and diastolic heart failure. 3. Alzheimer's dementia. 4. Coronary artery disease, status post coronary artery bypass graft. 5. Insulin-dependent type 2 diabetes mellitus. DISCHARGE MEDICATIONS: 1. Multivitamin 1 tablet p.o. daily. 2. Lisinopril 20 mg p.o. daily. 3. Aspirin 81 mg p.o. daily. 4. Allopurinol 300 mg p.o. daily. 5. Metoclopramide 10 mg p.o. t.i.d. 6. Carvedilol 6.25 mg b.i.d. 7. Finasteride 5 mg p.o. daily. 8. Insulin 15 units subcu t.i.d. 9. Pantoprazole 40 mg p.o. daily. 10. Insulin detemir 80 units subcu daily. 11. Magnesium hydroxide 30 mL p.o. daily p.r.n. for constipation. 12. Loperamide 2 mg p.o. as directed as needed for diarrhea or loose stools, give two tablets initially, then one tablet p.r.n. for each stool and not to exceed 6 tablets per hours. 13. Acetaminophen 650 mg p.o. q.4 hours as needed for pain. 14. Furosemide 20 mg p.o. daily. 15. Ferrous sulfate 220 mg oral b.i.d. 16. Atorvastatin 80 mg p.o. at bedtime. HISTORY OF PRESENT ILLNESS/HOSPITAL COURSE: This is a 68-year-old male, long term resident with Alzheimer's, who presented to the ED for abdominal pain, nausea, vomiting, diarrhea, shortness of breath, and diaphoresis. Per report, he has had this for the past 1 to 2 days. The patient denied fever, chills, or hematochezia. It is unknown that if he had been given anything to help with these symptoms. Of note, his past medical history is significant for NSTEMI in 12/2017. No catheterization was performed during that time due to being poor candidate and he was discharged with medical management. The patient denied current chest pain. In the ED, EKG was stable compared to prior despite ST depression and T-wave inversions. Cardiology was consulted and it was determined that there was no need for any intervention at that time. The patient's troponins were initially up-trending and then down trended. Repeat EKG reveals no changes. The patient was put on aspirin, nitroglycerin p.r.n. and his home medications resumed. For his gastroenteritis, the patient was put on IV fluid and supportive care with Zofran. The patient was able to tolerate a diet and his nausea had resolved prior to discharge. For his diastolic and systolic mixed heart failure, the patient had daily strict I's and O's and his home medications were resumed. For his type 2 diabetes mellitus, the patient was continued on his home medications. DISPOSITION: Stable. DISCHARGE INSTRUCTIONS: 1. Location: [facility]. 2. Diet: Consistent carbohydrate 1800 calorie, heart-healthy diet, low-sodium diet with 2 g limits. Fluid restricted to 1800 mL per day. 3. Activity: As tolerated. 4. Followup: With his PCP, Dr. Brayden Mccullough within 7 days. Job ID: [id number] MTDD
== END 2018-07-04 18:10 ==
LOC: ERS 14:38 → 2NO 17:34
PROVIDERS: ADMIT Family Medicine; ATTEND Family Medicine
DX: A08.4 Viral intestinal infection, unspecified (principal); I50.42 Chronic combined systolic (congestive) and diastolic (congestive) heart failure; E11.22 Type 2 diabetes mellitus with diabetic chronic kidney disease; N18.3 Chronic kidney disease, stage 3 (moderate); N20.0 Calculus of kidney; I25.10 Atherosclerotic heart disease of native coronary artery without angina pectoris; G30.9 Alzheimer's disease, unspecified; F02.80 Dementia in other diseases classified elsewhere, unspecified severity, without behavioral disturbance, psychotic disturbance, mood disturbance, and anxiety; I25.2 Old myocardial infarction; D50.9 Iron deficiency anemia, unspecified; K21.9 Gastro-esophageal reflux disease without esophagitis; F32.9 Major depressive disorder, single episode, unspecified; N40.0 Benign prostatic hyperplasia without lower urinary tract symptoms; Z95.1 Presence of aortocoronary bypass graft; Z86.73 Personal history of transient ischemic attack (TIA), and cerebral infarction without residual deficits; Z79.82 Long term (current) use of aspirin; Z79.4 Long term (current) use of insulin; Z79.899 Other long term (current) drug therapy
CPT/HCPCS: 71045; 74176; 80048; 80053; 82550; 82553; 82962 ×2; 83690; 84484 ×3; 85025; 87324; 87449; 93005; 94760; 96360; 96361 ×2; 96372; 99285; G0378 ×2; 36415; 36416; J1650; J1815; J1825; J8597

== ENCOUNTER 2018-07-22 11:07 | Inpatient (IN) | payer MEDICAID, MEDICARE ==
[2018-07-22] MEDS ORDERED: niCARdipine 20MG In NaCl 20 MG/200 ML BAG ONE (11:11)
[2018-07-22] MEDS ORDERED: Fentanyl 100 MCG/2 ML VIAL ONE (11:14)
[2018-07-22] MEDS ORDERED: Propofol 1,000 MG/100 ML VIAL IV ONE (11:14)
[2018-07-22] MEDS ORDERED: fentaNYL Citrate/PF 2,000 MCG in Sodium Chloride 0.9% 60 ML IV SCH (11:22)
[2018-07-22 11:31] LABS: Actual Bicarbonate (HCO3a) 21.3 mEq/L (22-28); Analyzer IN Cardio ER; Base Excess (BEa) -2.3 mEq/L (-2.0 to +3.0); Calcium, Ionized 1.13 mmol/L (1.12-1.30); Carboxyhemoglobin (COHb) 1.1 gm% (0.0-3.0); O2 Tension (PaO2) 93.1 mmHg (> 70.0); Potassium - ABG Lab 3.92 mmol/L (3.70-5.30); pH, Arterial 7.43 (7.35-7.45)
[2018-07-22 11:32] LABS: Puncture Site LRA
--- NOTE | 2018-07-22 12:19 | CT ---
CT BRAIN WITHOUT CONTRAST: Date: 07/22/18 HISTORY: Altered mental status. Patient given [employer] SUPPORT WORK[employer] recently. Patient had previous right-sided deficit. FINDINGS: Comparison made with earlier exam at 0910 hours from same date. No significant interval change is seen. Changes of cortical atrophy, chronic small vessel ischemic disease, and old lacunar infarctions in de ep penaloza nuclei are stable. No evidence of acute infarct, hemorrhage, midline shift, or abnormal extra -axial fluid collections are seen. The bony calvarium is intact. IMPRESSION: No CT evidence of acute intracranial process. This study was interpreted in consultation with Dr. Javi Mckay (neuroradiologist), who concurs. POS: OFF
[2018-07-22] MEDS ORDERED: Communication Order-Pharmacy FS SCH (13:23)
[2018-07-22] MEDS ORDERED: Ventilator Sedation Protocol 1 EACH FS SCH (13:30)
[2018-07-22] MEDS ORDERED: Ondansetron PF 4 MG/2 ML Vial IVP PRN (13:43)
[2018-07-22] MEDS ORDERED: Ondansetron ODT 4 MG TAB SL PRN (13:43)
[2018-07-22] MEDS ORDERED: Propofol BOLUS 1,000 MG/100 ML VIAL IV PRN (13:50)
[2018-07-22] MEDS ORDERED: Fentanyl BOLUS 250 ML IVPB PRN (13:50)
[2018-07-22] MEDS ORDERED: Morphine 2 MG/ML SYRINGE SLOW IVP PRN (13:50)
[2018-07-22] MEDS ORDERED: Propofol 1,000 MG/100 ML VIAL IV PRN (13:50)
[2018-07-22] MEDS ORDERED: DISCONTINUE PREVIOUS NARCOTIC PAIN MEDICATIONS AND BENZODIAZEPINES FS SCH (13:50)
--- NOTE | 2018-07-22 14:08 | PDOC.FPRHP ---
- History of Present Illness Chief Complaint: speech changes History of Present Illness: Antonio Mustafa is a 68 year old male with a prior history of CVA 6 years ago with residual right sided deficits he was [facility] @ 0730 this morning. He was noted by nursing staff to have speech deficits and worsening confusion so EMS called. CT head was negative. Pt was given TPA in outside ER. She was noted to have BPs of 200s/110s prior to TPA administration, so BP was emergently lowered with Esmolol prior to TPA administration. He was intubated prior to arrival due to concerns that he was not able to protect his airway. On arrival to this ER he was noted to be hypotensive with SBPs of 70s- 80. Repeat CT of his head was negative. BP improved with fluid bolus given in ED. - Allergies/Adverse Reactions Allergies Allergy/AdvReac Type Severity Reaction Status Date / Time No Known Allergies Allergy Verified 12/21/17 10:39 - Home Medications Medication Instructions Recorded Confirmed Type Allopurinol 300 mg PO DAILY 02/22/17 07/03/18 History Aspirin Chewable [Aspirin Chewable 81 mg PO DAILY 02/22/17 07/03/18 History Tablet] Carvedilol [Coreg] 6.25 mg PO BID 02/22/17 07/03/18 History Lisinopril [Zestril] 20 mg PO DAILY 02/22/17 07/03/18 History Metoclopramide HCl [Reglan] 10 mg PO TID 02/22/17 07/03/18 History Multivitamin [Multi-Vitamin Daily] 1 tablet PO DAILY 02/22/17 07/03/18 History Finasteride [Proscar] 5 mg PO DAILY tab 02/23/17 07/03/18 Rx Insulin Aspart [Novolog] 15 unit SQ TID 12/21/17 07/03/18 History Insulin Detemir [Levemir] 80 unit SQ DAILY 12/21/17 07/03/18 History Pantoprazole [Protonix] 40 mg PO DAILY 12/21/17 07/03/18 History Acetaminophen 650 mg PO Q4HR PRN 12/26/17 07/03/18 History Loperamide HCl [Loperamide] 2 mg PO ASDIR PRN 12/26/17 07/03/18 History Magnesium Hydroxide [Milk of 30 ml PO DAILY PRN 12/26/17 07/03/18 History Magnesia] Furosemide [Lasix] 20 mg PO DAILY 30 Days tab 12/30/17 07/03/18 Rx Atorvastatin Calcium 80 mg PO HS 07/03/18 07/03/18 History Ferrous Sulfate 220 mg PO BID 07/03/18 07/03/18 History - History PMHx: History of NSTEMI, Alzheimer's disease, CAD s/p CABG x 4, chronic microcytic anemia, IDDM 2, systolic/diastolic heart failure, Hx of prior CVA, GERD, depression, CKD PSHx: CABG x 4 FHx: Father with history of DM, [place] Social: Per daughter, pt has no history of tobacco, alcohol, or drug use. - Review of Systems ROS unobtainable: due to endotracheal tube - Vital signs BP: 86/55 HR: 55 RR: 25 Pox: Vent% on Vent Wt: 82 kg - Physical Exam Constitutional: other (Sedated on vent) HEENT: normocephalic and atraumatic, PERRLA, other (trach in place. ETT 23 cm at teeth) Neck: supple Heart: RRR Lungs: CTAB, good air movement Abdomen: soft, bowel sounds present Neurological: other (upgoing Babinski's bilaterally) Skin: no rash/lesions Heme/Lymphatic: no unusual bruising or bleeding FMR H&P: Results - Labs Lab results: ABG pH 7.43 (7.35-7.45) 07/22/18 11:30 ABG pCO2 33.0 mmHg (35.0-45.0) L 07/22/18 11:30 ABG pO2 93.1 mmHg (> 70.0) H 07/22/18 11:30 - Radiology Interpretation CT scan - head Status: report reviewed by me (Negative for ischemia.) Other Status: report reviewed by me (CTA head and neck: significant stenosis and athersclerosis of the basilar artery.) FMR H&P: A/P - Problem List (1) Acute CVA (cerebrovascular accident) Current Visit: Yes Status: Acute Code(s): I63.9 - CEREBRAL INFARCTION, UNSPECIFIED (2) Elevated troponin level Current Visit: No Status: Acute Code(s): R74.8 - ABNORMAL LEVELS OF OTHER SERUM ENZYMES (3) CKD (chronic kidney disease), stage III Current Visit: No Status: Chronic Code(s): N18.3 - CHRONIC KIDNEY DISEASE, STAGE 3 (MODERATE) (4) Coronary artery disease Current Visit: No Status: Chronic Code(s): I25.10 - ATHSCL HEART DISEASE OF [place] CORONARY ARTERY W/O ANG PCTRS Qualifiers: Coronary Disease-Associated Artery/Lesion type: bypass graft [place] vs. transplanted heart: [place] heart (5) Diabetes mellitus, type II Current Visit: No Status: Chronic (6) GERD (gastroesophageal reflux disease) Current Visit: No Status: Chronic Code(s): K21.9 - GASTRO-ESOPHAGEAL REFLUX DISEASE WITHOUT ESOPHAGITIS (7) Hx of CABG Current Visit: No Status: Chronic (8) Insulin dependent diabetes mellitus Current Visit: No Status: Chronic Code(s): E11.9 - TYPE 2 DIABETES MELLITUS WITHOUT COMPLICATIONS; Z79.4 - [employer]AD[employer] (CURRENT) USE OF INSULIN (9) Dementia Current Visit: No Status: Chronic Code(s): F03.90 - UNSPECIFIED DEMENTIA WITHOUT BEHAVIORAL DISTURBANCE (10) Microcytic anemia Current Visit: No Status: Chronic Code(s): D50.9 - IRON DEFICIENCY ANEMIA, UNSPECIFIED (11) Systolic and diastolic CHF, chronic Current Visit: No Status: Chronic Code(s): I50.42 - CHRONIC COMBINED SYSTOLIC AND DIASTOLIC HRT FAIL - Plan Acute CVA, likely ischemic - will admit patient to CCU for further monitoring s/p tPA. Neurology consulted. - vent management per pulm. -will avoid blood draws for 24 hours after TPA. Repeat imaging obtained in our ED shows no evidence of hemorrhage. Will obtain repeat CT in AM. - Scheduled antihypertensives held. PRN antihypertensives available to keep pressures < 180/110. - MRI once stable. Insulin dependent diabetes mellitus - last A1C 9.4% in 04/2018. - will attempt to keep blood sugars between 140-180 while in hospital. - will hold off on accuchecks. Indeterminate troponin - elevated at baseline. - consider recheck in AM to trend. CKD stage IV - will avoid nephrotoxic medications. - Cr at baseline. CAD - aware. - indeterminately elevated troponin appears at baseline. Combined systolic and diastolic heart failure. - EF of 45-50% - will resume medications. GERD - will start IV protonix for GI prophylaxis. Code status: full (discussed with daughter Beulah, who is MPOA). DVT proph: will avoid anticoagulation and SCDs for 24 hrs s/p tPA per protocol.
--- NOTE | 2018-07-22 14:33 | PDOC.EVN ---
Event Note - Event Note Event Note: Date/Time: 07/22/18 1430 I personally evaluated the patient and discussed the management with Dr. Spencer I agree with the History, Examination, Assessment and Plan documented above with any addition or exceptions noted below- 68 yo male with h/o prior CVA with right sided residual, HTN, DM, CAD s/p CABG resident of [facility] in [place] sent to ER after nursing staff noted slurred speech and altered MS. In [place] ER, CT brain negative, was significantly hypertensive and was given esmolol and then patient given TPA. Patient then transported to [place]. Prior to transfer, concern for airway was noted so patient was intubated. PMH/PSH/Meds/SH reviewed and agree with resident's documentation. Afebrile BP124/65 P51 RR23 100% on vent. Exam repeated by me and agree with resident's findings. Exam limited due to sedation for vent. Labs: WBC=10.1, H/H=10.9/35.8, Nkw=906, Nw=142, K=3.5, Cl= 108, CO2=24, BUN/Cr=11/0.86, Nblg=465. ABG=7.43/33/93/21, trop I=0.093 CT btrain- negative for acute finding. CTA neck - no significant carotid stenosis CTA brain - significant stenosis and atherosclerosis of basilar arteries A/P: 1) Possible acute CVA s/p TPA- Admit to ICU. Post TPA protocol. Plan to obtain MRI of brain. Consult neurology. 2) Acute respiratory failure - continue vent support. Consult pulmonary. 3) HTN- allow for permissive hypertension. Continue to monitor closely. 4) DM- monitor BG. Plan to keep <200.
[2018-07-22] MEDS ORDERED: Lactated Ringer's 1,000 ML IV SCH ×2 (16:00→17:03)
--- NOTE | 2018-07-22 16:34 | RAD ---
PORTABLE CHEST ONE VIEW: 07/22/18 at 4:12 p.m. HISTORY: Respiratory failure. FINDINGS/IMPRESSION: Comparison made with the exam of 07/03/18. There are changes of median sternotomy. There is an endotracheal tube with tip just below the level of the clavicular heads. A nasogastric tube can be traced into the stomach. The heart size is stable. No lobar consolidation, pneumothoraces, nuzhat pulmonary edema or large effusions are seen. POS: OFF
[2018-07-22] MEDS ORDERED: Dextrose 5% in Water 1,000 ML IV PRN ×2 (17:05→17:22)
[2018-07-22] MEDS ORDERED: Dextrose 50% Abboject 50 ML SYRINGE SLOW IVP PRN (17:05)
[2018-07-22] MEDS ORDERED: Dextrose 50% Abboject 50 ML SYRINGE ONE (17:19)
[2018-07-22] MEDS ORDERED: Dextrose 50% Abboject 50 ML SYRINGE IVP PRN (17:22)
[2018-07-22] MEDS ORDERED: CCU Electrolyte Replacement 1 EACH FS SCH (18:00)
[2018-07-22] MEDS ORDERED: Potassium Phosphate 9 MMOL in Sodium Chloride 0.9% 100 ML IVPB PRN (18:12)
[2018-07-22] MEDS ORDERED: Magnesium 2 GM/50 ML 2 GM in Premix Bag 1 BAG IVPB PRN (18:12)
[2018-07-22] MEDS ORDERED: CCU ELECTROLYTE REPLACEMENT PROTOCOL FS PRN (18:12)
[2018-07-22] MEDS ORDERED: Potassium Phosphate 15 MMOL in Sodium Chloride 0.9% 250 ML 250 ML IV PRN (18:12)
[2018-07-22] MEDS ORDERED: Potassium Phosphate 12 MMOL in Sodium Chloride 0.9% 250 ML 250 ML IV PRN (18:12)
[2018-07-22] MEDS ORDERED: Magnesium Oxide 400 MG TAB PO PRN ×2 (18:12)
[2018-07-22] MEDS ORDERED: Potassium Chloride 20 MEQ TAB PO PRN (18:12)
[2018-07-22] MEDS ORDERED: Potassium Chloride 40 MEQ in Premix Bag 1 BAG IVPB PRN (18:12)
[2018-07-22] MEDS ORDERED: Potassium Chloride 40 MEQ in Sodium Chloride 0.9% 250 ML 250 ML IVPB PRN (18:12)
[2018-07-22] MEDS ORDERED: Acetaminophen 650 MG/20.3 ML UDCUP PER TUBE PRN (19:31)
[2018-07-22] MEDS ORDERED: Milk Of Magnesia 30 ML UDCUP PER TUBE PRN (19:31)
[2018-07-22] MEDS: Dextrose 5%-Lactated Ringers 1,000 ML IV SCH (19:58)
[2018-07-22] MEDS: Metoclopramide HCl 10 MG TAB PER TUBE SCH (21:13)
[2018-07-22] MEDS: Atorvastatin Calcium 40 MG TAB PER TUBE SCH (21:14)
--- NOTE | 2018-07-22 23:01 | CON ---
DATE OF CONSULTATION: HISTORY OF PRESENT ILLNESS: A 68-year-old gentleman, resident of [facility] over 6 years following a CVA. In fact, he was recently discharged from the hospital on 07/04/2018 with chest pain symptoms. X-ray taken at that time showed no acute process. Some cardiomegaly was noted. His troponin was elevated. It was felt he had demand ischemia, dementia, coronary artery disease, and diabetes. This morning in the half-way, apparently he was having some slurred speech that was noted by half-way people. Further change in mental status. Became aphasic, dysarthric, and weakness on the left side. Diagnosis of evolving CVA was made apparently in [place] and was given tPA and transferred over here. I am told he has mental status change. He had to be intubated to protect his airways. His daughter is at bedside, who gives adequate history. She states that her father has never smoked, six years in the half-way, he is unable to walk, gets around with a wheelchair. He is able to eat on his own. PAST MEDICAL HISTORY: CVA with left-sided weakness. Congestive heart failure, systolic and diastolic. Gout, hyperlipidemia, diabetes, gastroparesis, constipation, hypertension, [place]. PAST SURGICAL HISTORY: Bypass. SOCIAL HISTORY: Alcohol, none. Tobacco, none. MEDICATIONS: His medicines from the half-way have included; 1. Allopurinol 300 mg a day. 2. Aspirin 81 mg. 3. Coreg 6.25. 4. Proscar 5 twice a day. 5. Lasix 20 once a day. 6. Insulin 15 units three times a day. 7. Levemir 8 units once a day. 8. Zestril 20 a day. 9. Reglan 10 three times a day. 10. Protonix. He is now on a fentanyl drip. ALLERGIES: NONE. REVIEW OF SYSTEMS: Otherwise, unobtainable. On the vent. PHYSICAL EXAMINATION: VITAL SIGNS: He sats 100%, respiratory rate 11, blood pressure 103/65, afebrile. Does move his right side. HEENT: Pupils are equal. CHEST: Decreased breath sounds. No wheezing. Anterior rhonchi. CARDIAC: Normal S1 and S2. No gallop. ABDOMEN: Massive. LABORATORY DATA: White count 10,000, H and H 10 and 35, platelet count is normal. PO2 is 93, pCO2 lytes are normal. Troponin is normal. IMAGING STUDIES: CT angio was done, which showed significant stenosis in the basilar artery. CT head did not show any hemorrhage. IMPRESSION: 1. Acute left-sided CVA with tPA in progress. 2. Diabetes. 3. Morbid obesity, wheel chair bound for 6 years. 4. Congestive heart failure. PLAN: 1. Minimize sedation. We will wean and extubate when stable. 2. Continue home medications. Critical time, 45 minutes. Job ID: [id number]
[2018-07-23] MEDS: Dextrose 5%-Lactated Ringers 1,000 ML IV SCH (04:29)
[2018-07-23 05:49] LABS: #Basophils 0.1 thou/uL (0.0-0.2); #Eosinphils 0.3 thou/uL (0.0-0.7); #Lymphocytes 2.3 thou/uL (1.20-3.40); #Monocytes 0.9 thou/uL (0.11-0.59); #Neutrophils 10.6 thou/uL (1.40-6.50); %Basophils 0.4 % (0.0-1.0); %Eosinophils 1.9 % (0.0-10.0); %Lymphocytes 16.2 % (21.0-51.0); %Monocytes 6.3 % (0.0-10.0); %Neutrophils 75.3 % (42.0-75.0); Hemoglobin 11.3 g/dL (14.0-18.0); Mean Corpuscular HGB CONC 30.7 g/dL (32.0-36.0); Mean Corpuscular Hemoglobin 23.7 pg (27.0-31.0); Mean Corpuscular Volume 77.1 fL (78.0-98.0); Mean Platelet Volume 8.4 fL (7.4-10.4); Platelet Count 259 thou/uL (130-400); RBC Distribution Width 16.5 % (11.5-14.5); Red Blood Cell (RBC) Count 4.76 mill/uL (4.70-6.10); White Blood Cell (WBC) Count 14.1 thou/uL (4.8-10.8)
--- NOTE | 2018-07-23 05:58 | PDOC.FM ---
- Subjective Subjective: Mr. Mustafa was seen and examined at bedside. No adverse events overnight per nursing staff. - Objective MAR Reviewed: Yes Vital Signs & Weight: Vital Signs (12 hours) Temp Pulse Resp Pulse Ox 07/23/18 04:00 98.6 F 12 07/23/18 02:30 67 07/23/18 02:00 10 L 07/23/18 00:04 70 07/23/18 00:00 98.7 F 10 L 07/22/18 22:00 20 07/22/18 20:00 98.6 F 10 L 100 07/22/18 18:34 64 Weight Admit Weight 82 g Weight 83.5 kg Most Recent Monitor Data Heart Rate from ECG 72 NIBP 118/79 NIBP BP-Mean 92 Respiration from ECG 11 SpO2 100 I&O: 07/21/18 07/22/18 07/23/18 06:59 06:59 06:59 Intake Total 145 Output Total 100 Balance 45 Result Diagrams: 07/23/18 05:33 07/23/18 05:33 Phys Exam - Physical Examination Constitutional: NAD Respiratory: clear to auscultation bilateral Cardiovascular: RRR Gastrointestinal: soft, no distention Musculoskeletal: no edema, pulses present moves both feet with stimulation Skin: no rash, normal turgor Dx/Plan (1) Acute CVA (cerebrovascular accident) Code(s): I63.9 - CEREBRAL INFARCTION, UNSPECIFIED Status: Acute (2) Elevated troponin level Code(s): R74.8 - ABNORMAL LEVELS OF OTHER SERUM ENZYMES Status: Acute (3) CKD (chronic kidney disease), stage III Code(s): N18.3 - CHRONIC KIDNEY DISEASE, STAGE 3 (MODERATE) Status: Chronic (4) Coronary artery disease Code(s): I25.10 - ATHSCL HEART DISEASE OF [place] CORONARY ARTERY W/O ANG PCTRS Status: Chronic Qualifiers: Coronary Disease-Associated Artery/Lesion type: bypass graft [place] vs. transplanted heart: [place] heart (5) Diabetes mellitus, type II Status: Chronic (6) GERD (gastroesophageal reflux disease) Code(s): K21.9 - GASTRO-ESOPHAGEAL REFLUX DISEASE WITHOUT ESOPHAGITIS Status: Chronic (7) Hx of CABG Status: Chronic (8) Insulin dependent diabetes mellitus Code(s): E11.9 - TYPE 2 DIABETES MELLITUS WITHOUT COMPLICATIONS; Z79.4 - ALF (CURRENT) USE OF INSULIN Status: Chronic (9) Dementia Code(s): F03.90 - UNSPECIFIED DEMENTIA WITHOUT BEHAVIORAL DISTURBANCE Status: Chronic (10) Microcytic anemia Code(s): D50.9 - IRON DEFICIENCY ANEMIA, UNSPECIFIED Status: Chronic (11) Systolic and diastolic CHF, chronic Code(s): I50.42 - CHRONIC COMBINED SYSTOLIC AND DIASTOLIC HRT FAIL Status: Chronic - Plan Plan: Acute CVA, likely ischemic - s/p TPA. - vent management per pulm. Pt on minimal sedation. Weaned from vent as tolerated. -will avoid blood draws for 24 hours after TPA. Repeat imaging obtained in our ED shows no evidence of hemorrhage. Repeat CT in AM. - Scheduled antihypertensives held. PRN antihypertensives available to keep pressures < 180/110. - MRI once stable. - speech consult once extubated. Insulin dependent diabetes mellitus - last A1C 9.4% in 04/2018. - will attempt to keep blood sugars between 140-180 while in hospital. - Indeterminate troponin - elevated at baseline. - consider recheck in AM to trend. CKD stage IV - will avoid nephrotoxic medications. - Cr at baseline. CAD - aware. - indeterminately elevated troponin appears at baseline. - will hold beta eran to allow for permissive HTN, and will hold ASA until 24 hrs after tPA. Combined systolic and diastolic heart failure. - EF of 45-50% - will hold antihypertensives for now. GERD - will start IV protonix for GI prophylaxis.
[2018-07-23 06:13] LABS: Anion Gap 13 mmol/L (10-20); BUN (Urea Nitrogen) 15 mg/dL (8.4-25.7); Calc. Creatinine Clearance 77 mL/min (70-130); Calcium 8.2 mg/dL (7.8-10.44); Carbon Dioxide 20 mmol/L (23-31); Cardiac Risk 5.6 (Less than 4.5); Chloride 109 mmol/L (98-107); Cholesterol 134 mg/dl (< 200 Desired); Estimated GFR-MDRD 69; Glucose 152 mg/dL (80-115); HDL Cholesterol 24 mg/dL (>60 Neg Risk); LDL Cholesterol, Calculated 83 mg/dL; Potassium 3.6 mmol/L (3.5-5.1); Sodium 138 mmol/L (136-145); Triglycerides 133 mg/dL (Less than 150)
[2018-07-23] MEDS ORDERED: Lactated Ringer's 1,000 ML IV SCH (06:45)
[2018-07-23 07:52] LABS: Actual Bicarbonate (HCO3a) 22.8 mEq/L (22-28); Base Excess (BEa) -1.8 mEq/L (-2.0 to +3.0); CO2 Tension 38.2 mmHg (35.0-45.0); Calcium, Ionized 1.15 mmol/L (1.12-1.30); Carboxyhemoglobin (COHb) 1.2 gm% (0.0-3.0); Hemoglobin (Hb) 11.4 g/dL (14.0-18.0); O2 Tension (PaO2) 104.1 mmHg (> 70.0); Potassium - ABG Lab 3.57 mmol/L (3.70-5.30); pH, Arterial 7.39 (7.35-7.45)
[2018-07-23 07:54] LABS: Puncture Site LBA
--- NOTE | 2018-07-23 08:45 | PRG ---
DATE OF SERVICE: 07/23/2018 SUBJECTIVE: This morning, he is intubated in the vent, unresponsive. His sedation is withheld this morning. OBJECTIVE: VITAL SIGNS: Blood pressure 128/76, pulse 76, respiratory rate 18, and sats 100%. CHEST: Reveal decreased breath sounds. No wheezing. CARDIAC: Normal S1, S2. No gallops. ABDOMEN: No masses. LABORATORY DATA: White count 14,000, H and H 11 and 36, platelet count is normal. PO2 is 104, pCO2 30, pH 7.39, on rate of 10, 30% FiO2. Lytes are normal. We are awaiting MRI of the brain. IMPRESSION: 1. Status post cerebrovascular accident with left-sided weakness. 2. Status post tPA. 3. Respiratory failure. PLAN: Hold sedation. Await results from the MRI. Start nutrition, PT. Wean when stable. One-half hour of critical time. Job ID: [id number]
--- NOTE | 2018-07-23 09:03 | RAD ---
SINGLE VIEW OF THE CHEST: COMPARISON: 07/22/2018. HISTORY: Ventilated patient with respiratory failure. FINDINGS: A single view of the chest shows a normal-size cardiomediastinal silhouette. The patient is status p ost sternotomy. An endotracheal tube is seen with its tip between the clavicles. An NG tube is seen in the stomach. There is no evidence of consolidation, mass, or pleural effusion. IMPRESSION: Appropriate position of lines and tues. POS: [facility]
[2018-07-23] MEDS: Metoclopramide HCl 10 MG TAB PER TUBE SCH ×3 (10:57→21:41)
[2018-07-23] MEDS: Allopurinol 300 MG TAB PO SCH (10:57)
[2018-07-23] MEDS: Pantoprazole 40 MG VIAL IVP SCH (10:58)
[2018-07-23] MEDS: Sodium Chloride 0.9% (PF) 10 ML VIAL FS PRN (10:58)
[2018-07-23] MEDS: Furosemide 20 MG TAB PER TUBE SCH (10:59)
[2018-07-23] MEDS: Multivits W-Minerals Liquid 15mL UDCUP PER TUBE SCH (11:00)
--- NOTE | 2018-07-23 12:42 | MRI ---
MRI BRAIN NONCONTRAST: DATE: 07/23/2018. HISTORY: A 68-year-old male status post cerebrovascular accident. COMPARISON: No prior MRIs. FINDINGS: There is a patchy region of T2 hyperintense signal occupying a large portion of the blas, centered at midline, associated with restricted diffusion, representing an acute or subacute infarction. There are several mostly tiny foci of restricted diffusion in the bilateral middle cerebellar peduncles (br achium pontis) with restricted diffusion, and involving bilateral dentate nuclei. These are on the o rder of 2-3 mm in size each. The largest one in the right brachium pontis is 8 mm. There is heterog eneous signal intensity replacing the expected flow void of the basilar artery which probably represe nts clot. Similar finding is also visualized in the intracranial portion of the right vertebral ajit ry. There are moderate to severe chronic ischemic white matter changes of the cerebral periventricular, d eep, and subcortical, white matter, symmetrically. No obstructive hydrocephalus. Diffuse brain pare nchymal volume loss, not unusual for age. The left cerebral peduncle is atrophic. 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 A few tiny old lacunar infarctions are present in the contralateral right thalamu s and probably in the bilateral caudate nuclei. No mass effect or midline shift. No acute intraaxia l hemorrhage. No extraaxial fluid collection. IMPRESSION: 1. Moderate-sized acute or subacute infarction of the blas. 2. Multiple small and tiny acute or subacute lacunar infarctions of bilateral middle cerebellar pedu ncles and dentate nuclei. 3. Probable thrombus in basilar artery and possibly in right vertebral artery. 4. Multiple tiny old lacunar infarctions of bilateral corpus striatum. 5. Old lacunar infarctions of bilateral thalami, left much worse than right. 6. Left-sided [place] degeneration, related to the lacunar infarctions in the left thalamus. 7. Moderate to severe chronic ischemic white matter changes. 8. No acute intracranial hemorrhage. CODE T JOHNNY Gomez POS: GABRIEL
--- NOTE | 2018-07-23 13:53 | CON ---
DATE OF CONSULTATION: CHIEF COMPLAINT: Acute stroke. HISTORY OF PRESENT ILLNESS: Daughter was in the room and gave medical history. The patient's is a divorcee and his has not been in the picture for a very long time. The patient is in a prison since his previous stroke, which caused him to be quite disabled and he is mostly either in a bed or wheelchair. He can wheel himself around and his speech is normal. Two weeks ago, he was admitted with gastrointestinal issue with vomiting, nausea, abdominal pain, and he had a full workup for GI symptoms. He also per daughter reported some double vision, but no history of any dizziness. The patient was found to have facial weakness and slurred speech yesterday at 8:30 a.m. after breakfast and daughter was called and he quickly became unresponsive. 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 The patient has remained intubated and unresponsive since yesterday. His MRI was pending still at the time of my visit with this patient earlier this morning. The patient has not woken up since yesterday. PAST MEDICAL HISTORY: The patient has diabetes, hypertension, coronary artery disease. The patient also has history of CVA, congestive heart failure, gout, gastroparesis, constipation, and prior [place]. FAMILY HISTORY: His father may have had a stroke. Most people in the family have diabetes, hypertension, and coronary artery disease. SOCIAL HISTORY: He is . He is a nonsmoker. No alcohol. 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 PAST SURGICAL HISTORY: Coronary artery bypass surgery, and bypass graft in the past. ALLERGIES: NO KNOWN DRUG ALLERGIES. HOME MEDICATIONS: Include: 1. Allopurinol. 2. Aspirin. 3. Carvedilol. 4. Lisinopril. 5. Metoclopramide. 6. Multivitamin. 7. Proscar. 8. Insulin. 9. Pantoprazole. 10. Acetaminophen. 11. Loperamide. 12. Magnesium hydroxide. 13. Furosemide. 14. Atorvastatin. 15. Ferrous sulfate. REVIEW OF SYSTEMS: Unable to obtain. LABORATORY WORKUP: White count 14.1, hemoglobin 11.3, hematocrit 36.7, platelets 259. Chemistry; sodium 138, potassium 3.6, chloride 109, bicarb 20, BUN 15, creatinine 1.06, glucose 152, LDL 83, HDL 24, triglycerides 133, cholesterol 134 , calcium 8.2. His MRI is still pending at this time, and his CT angiography from yesterday showed significant stenosis and atherosclerosis of basilar artery. There is also stenosis of bilateral vertebral arteries. PHYSICAL EXAMINATION: VITAL SIGNS: Blood pressure 120/83, pulse is 76, his temperature is 99, he is intubated and is on ventilator. CHEST: Coarse breath sounds bilaterally. CARDIOVASCULAR: S1 and S2 heard. No murmurs. NEUROLOGIC: Higher intellectual functions, poorly responsive to any stimuli. Cranial nerves, pupils 3 mm bilaterally. No facial asymmetry that was noticeable and he has gag and cough and preserved oculocephalics. Motor examination, his deep tendon reflexes were absent. He has some withdrawal to stimuli on the right side. On the left, he has some extensor response and he has no response to stimulus in the left lower extremity. Deep tendon reflexes were absent throughout. Cerebellar and sensory; difficult to evaluate. 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 It is unclear whether he had involving valvular syndrome. It did seem to have come in 2 weeks ago with gastrointestinal symptoms, which might be unrelated because of presence of abdominal pain at that time. His current exam shows loss of consciousness and presence of gag and cough and doll eye, absent reflexes, and minimal responsiveness to stimuli. I suspect he might have had a posterior circulation infarct, which has caused significant problems and major of them are in pontine area, which is causing his loss of consciousness. I will review the MRI report. I will see the patient tomorrow again. Please continue to monitor his blood pressure and maintain cerebral perfusion within recommended range for post tPA patient. I will see the patient again. Job ID: [id number] [facility]
--- NOTE | 2018-07-23 13:57 | PDOC.EVN ---
Event Note - Event Note Event Note: CT and MRI were both ordered per protocol. Spoke with radiology, Dr. Christopher. MRI was completed this morning before the CT and is even better to detect brain bleed. He recommended that MRI was sufficient and CT is not needed. Okay given to cancel CT order.
[2018-07-23] MEDS: Insulin Regular 300 UNITS/3 ML VIAL SC PRN ×2 (17:21→21:41)
[2018-07-23] MEDS: Atorvastatin Calcium 40 MG TAB PER TUBE SCH (21:41)
[2018-07-24] MEDS: Lactated Ringer's 1,000 ML IV SCH ×2 (00:32→13:59)
[2018-07-24 05:25] LABS: #Eosinphils 0.2 thou/uL (0.0-0.7); #Lymphocytes 1.8 thou/uL (1.20-3.40); #Monocytes 1.2 thou/uL (0.11-0.59); #Neutrophils 11.7 thou/uL (1.40-6.50); %Basophils 0.2 % (0.0-1.0); %Eosinophils 1.7 % (0.0-10.0); %Lymphocytes 12.1 % (21.0-51.0); %Monocytes 7.9 % (0.0-10.0); %Neutrophils 78.1 % (42.0-75.0); Hemoglobin 11.3 g/dL (14.0-18.0); Mean Corpuscular HGB CONC 31.1 g/dL (32.0-36.0); Mean Corpuscular Volume 77.1 fL (78.0-98.0); Mean Platelet Volume 8.8 fL (7.4-10.4); Platelet Count 253 thou/uL (130-400); RBC Distribution Width 16.5 % (11.5-14.5); Red Blood Cell (RBC) Count 4.69 mill/uL (4.70-6.10)
[2018-07-24 05:54] LABS: Anion Gap 14 mmol/L (10-20); BUN (Urea Nitrogen) 13 mg/dL (8.4-25.7); Calc. Creatinine Clearance 90 mL/min (70-130); Calcium 8.6 mg/dL (7.8-10.44); Carbon Dioxide 22 mmol/L (23-31); Chloride 108 mmol/L (98-107); Estimated GFR-MDRD 85; Glucose 176 mg/dL (80-115); Potassium 3.7 mmol/L (3.5-5.1); Sodium 140 mmol/L (136-145)
[2018-07-24] MEDS: Insulin Regular 300 UNITS/3 ML VIAL SC PRN ×4 (05:59→21:38)
--- NOTE | 2018-07-24 06:08 | PDOC.FM ---
- Subjective Subjective: Pt remains obtunded despite sedation being completely turned off. No adverse events overnight. - Objective MAR Reviewed: Yes Vital Signs & Weight: Vital Signs (12 hours) Temp Pulse Resp Pulse Ox 07/24/18 06:00 14 07/24/18 04:00 98.6 F 10 L 07/24/18 03:35 72 07/24/18 03:00 10 L 07/24/18 01:00 100 07/24/18 00:00 99.1 F 12 07/23/18 22:18 80 07/23/18 22:00 12 07/23/18 20:00 99.2 F 21 H 100 07/23/18 18:36 77 07/23/18 18:00 12 Weight Admit Weight 83.5 kg Weight 82.6 kg Most Recent Monitor Data Heart Rate from ECG 91 NIBP 157/91 NIBP BP-Mean 113 Respiration from ECG 16 SpO2 99 I&O: 07/22/18 07/23/18 07/24/18 06:59 06:59 07:59 Intake Total 669 1863 Output Total 100 211 Balance 569 1652 Result Diagrams: 07/24/18 04:23 07/24/18 04:23 Phys Exam - Physical Examination Constitutional: NAD Respiratory: clear to auscultation bilateral Cardiovascular: RRR Gastrointestinal: soft, no distention withdraw to painful stimuli. GCS5 ([id number]) Dx/Plan (1) Acute CVA (cerebrovascular accident) Code(s): I63.9 - CEREBRAL INFARCTION, UNSPECIFIED Status: Acute (2) Elevated troponin level Code(s): R74.8 - ABNORMAL LEVELS OF OTHER SERUM ENZYMES Status: Acute (3) CKD (chronic kidney disease), stage III Code(s): N18.3 - CHRONIC KIDNEY DISEASE, STAGE 3 (MODERATE) Status: Chronic (4) Coronary artery disease Code(s): I25.10 - ATHSCL HEART DISEASE OF [place] CORONARY ARTERY W/O ANG PCTRS Status: Chronic Qualifiers: Coronary Disease-Associated Artery/Lesion type: bypass graft [place] vs. 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 MRI shows pontine infarction. - vent management per pulm. Pt not on sedation with exam findings as above. - Will discuss goals of care with family today. Insulin dependent diabetes mellitus - last A1C 9.4% in 04/2018. - will attempt to keep blood sugars between 140-180 while in hospital. - Will restart long acting insulin. - AC/HS accuchecks. Indeterminate troponin - elevated at baseline. - consider recheck in AM to trend. CKD stage IV - will avoid nephrotoxic medications. - Cr at baseline. CAD - aware. - indeterminately elevated troponin appears at baseline. - will hold beta eran to allow for permissive HTN, and will hold ASA until 24 hrs after tPA. Combined systolic and diastolic heart failure. - EF of 45-50% - will hold antihypertensives for now. GERD - will start IV protonix for GI prophylaxis.
[2018-07-24 08:23] LABS: Actual Bicarbonate (HCO3a) 23.7 mEq/L (22-28); Base Excess (BEa) -0.2 mEq/L (-2.0 to +3.0); CO2 Tension 35.9 mmHg (35.0-45.0); Calcium, Ionized 1.17 mmol/L (1.12-1.30); Carboxyhemoglobin (COHb) 1.1 gm% (0.0-3.0); Hemoglobin (Hb) 11.1 g/dL (14.0-18.0); O2 Tension (PaO2) 116.3 mmHg (> 70.0); Potassium - ABG Lab 3.64 mmol/L (3.70-5.30); pH, Arterial 7.44 (7.35-7.45)
[2018-07-24 08:25] LABS: Puncture Site LRA
[2018-07-24 08:26] LABS: ALV-art Gradient 52.725 (0-20)
--- NOTE | 2018-07-24 09:27 | RAD ---
SINGLE VIEW OF THE CHEST: COMPARISON: 07/23/2018. HISTORY: Ventilated patient with respiratory failure. FINDINGS: A single view of the chest shows a normal-size cardiomediastinal silhouette. The patient is status p ost sternotomy. The endotracheal tube and NG tube are unchanged in position. There is no evidence o f consolidation, mass, or pleural effusion. IMPRESSION: No evidence of acute cardiopulmonary disease. POS: [facility]
[2018-07-24] MEDS: Pantoprazole 40 MG VIAL IVP SCH (09:47)
[2018-07-24] MEDS: Metoclopramide HCl 10 MG TAB PER TUBE SCH ×3 (09:48→20:49)
[2018-07-24] MEDS: Furosemide 20 MG TAB PER TUBE SCH (09:48)
[2018-07-24] MEDS: Multivits W-Minerals Liquid 15mL UDCUP PER TUBE SCH (09:48)
[2018-07-24] MEDS: Allopurinol 300 MG TAB PO SCH (10:26)
--- NOTE | 2018-07-24 11:24 | PRG ---
DATE OF SERVICE: 07/24/2018 CHIEF COMPLAINT: Acute stroke. INTERVAL HISTORY: The patient is still intubated. He does withdraw somewhat to stimuli, and plan is per ICU staff, plan is for the patient to have code status clarification from family prior to changing ventilation plan. WORKUP: Current workup; MRI showed moderate-sized acute/subacute infarct of the blas, multiple small and tiny acute/subacute lacunar infarcts of the bilateral MCA, middle cerebellar peduncles, and dentate nuclei, probable thrombus in basilar artery and possibly in right vertebral artery, multiple tiny lacunar infarcts of bilateral corpus striatum or lacunar infarcts of bilateral thalami, left-sided wallerian degeneration related to lacunar infarctions in the left thalamus, moderate to severe chronic ischemic white matter changes. Laboratory workup: White count 15, hemoglobin 11.3, hematocrit 36.2, platelets 253. Chemistry; sodium 140, potassium 3.7, chloride 108, carbon dioxide 22, BUN 13, and creatinine 0.89. PHYSICAL EXAMINATION: VITAL SIGNS: Blood pressure 151/77, pulse is 92, temperature 98.3. The patient is still on the ventilator and is overbreathing the vent. GENERAL APPEARANCE: The patient is on ventilator. He is overbreathing the vent. NEUROLOGIC: Cranial nerve examination he has a cough and gag. No facial asymmetry noted. Pupils are bilaterally symmetric at 3 mm. Motor examination, he has active withdrawal to stimuli bilaterally in both upper and lower extremities. Plantars are extensors. 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 At this time, he is still obtunded and is on ventilator. I suspect this is most likely from his pontine stroke. Family was not present in the room. I will revisit with the family tomorrow. Prognosis is still guarded. RECOMMENDATIONS: Please continue vent support and manage supportive management of his ischemic event. I will follow up tomorrow again. Job ID: [id number]
[2018-07-24] MEDS: Aspirin Chewable 81 MG TAB PER TUBE SCH (11:27)
[2018-07-24] MEDS: Sodium Chloride 0.9% 1,000 ML IV SCH ×2 (12:34→20:01)
--- NOTE | 2018-07-24 14:41 | PDOC.EVN ---
Event Note - Event Note Event Note: Discussed with patient's daughter Tiffanie Mustafa ([facility] that pt remains obtunded despite being off sedation and that we can not wean from the vent as such. Discussed the possiblilty of trach, but patient states that her father would not want that. Will consult palliative care with [facility]'s permission to discuss goals of care.
[2018-07-24] MEDS: Atorvastatin Calcium 40 MG TAB PER TUBE SCH (20:44)
[2018-07-24] MEDS ORDERED: Insulin Glargine 10 UNITS in Pre-Filled Syringe 1 EACH SC SCH (21:00)
[2018-07-25] MEDS: Sodium Chloride 0.9% 1,000 ML IV SCH ×3 (04:32→20:21)
[2018-07-25] MEDS: Insulin Regular 300 UNITS/3 ML VIAL SC PRN ×4 (05:01→20:28)
--- NOTE | 2018-07-25 06:59 | PDOC.FM ---
- Subjective Subjective: Patient obtunded with minimal response off sedation. He withdraws to pain in all extremities. He is breathing over vent at 20-30 breaths/minute. - Objective MAR Reviewed: Yes Vital Signs & Weight: Vital Signs (12 hours) Temp Pulse Resp Pulse Ox 07/25/18 06:00 26 H 07/25/18 04:00 99.7 F H 22 H 07/25/18 02:51 81 07/25/18 02:00 23 H 07/25/18 00:00 99.5 F 24 H 07/24/18 22:15 91 07/24/18 22:00 100 F H 17 07/24/18 20:00 100.0 F H 16 99 Weight Admit Weight 83.5 kg Weight 81.5 kg Most Recent Monitor Data Heart Rate from ECG 68 NIBP 102/67 NIBP BP-Mean 78 Respiration from ECG 12 SpO2 99 I&O: 07/23/18 07/24/18 07/25/18 05:59 06:59 06:59 Intake Total 2296 Output Total 1074 Balance 1222 Result Diagrams: 07/25/18 06:53 07/25/18 06:53 Phys Exam - Physical Examination Constitutional: NAD (resting comfortably on ventilator) HEENT: PERRLA (symmetric), moist MMs Respiratory: no wheezing, no rales, no rhonchi, clear to auscultation bilateral Cardiovascular: RRR, no significant murmur, no rub Gastrointestinal: soft, non-tender, no distention, positive bowel sounds Musculoskeletal: pulses present, edema present (trace pedal edema) withdraws to pain, corneal/gag/cough reflexes intact Skin: normal turgor, cap refill <2 seconds Dx/Plan (1) Acute CVA (cerebrovascular accident) Code(s): I63.9 - CEREBRAL INFARCTION, UNSPECIFIED Status: Acute (2) Elevated troponin level Code(s): R74.8 - ABNORMAL LEVELS OF OTHER SERUM ENZYMES Status: Acute (3) CKD (chronic kidney disease), stage III Code(s): N18.3 - CHRONIC KIDNEY DISEASE, STAGE 3 (MODERATE) Status: Chronic (4) Coronary artery disease Code(s): I25.10 - ATHSCL HEART DISEASE OF [place] CORONARY ARTERY W/O ANG PCTRS Status: Chronic Qualifiers: Coronary Disease-Associated Artery/Lesion type: bypass graft [place] vs. transplanted heart: [place] heart (5) Dementia Code(s): F03.90 - UNSPECIFIED DEMENTIA WITHOUT BEHAVIORAL DISTURBANCE Status: Chronic (6) Diabetes mellitus, type II Status: Chronic (7) Diastolic CHF Code(s): I50.30 - UNSPECIFIED DIASTOLIC (CONGESTIVE) HEART FAILURE Status: Chronic Qualifiers: Heart failure chronicity: acute on chronic Qualified Code(s): I50.33 - Acute on chronic diastolic (congestive) heart failure (8) GERD (gastroesophageal reflux disease) Code(s): K21.9 - GASTRO-ESOPHAGEAL REFLUX DISEASE WITHOUT ESOPHAGITIS Status: Chronic (9) Hx of CABG Status: Chronic (10) Hyperlipemia Code(s): E78.5 - HYPERLIPIDEMIA, UNSPECIFIED Status: Chronic Qualifiers: Hyperlipidemia type: unspecified Qualified Code(s): E78.5 - Hyperlipidemia , unspecified (11) Hypertension Code(s): I10 - ESSENTIAL (PRIMARY) HYPERTENSION Status: Chronic (12) Insulin dependent diabetes mellitus Code(s): E11.9 - TYPE 2 DIABETES MELLITUS WITHOUT COMPLICATIONS; Z79.4 - USP (CURRENT) USE OF INSULIN Status: Chronic (13) Microcytic anemia Code(s): D50.9 - IRON DEFICIENCY ANEMIA, UNSPECIFIED Status: Chronic (14) Systolic and diastolic CHF, chronic Code(s): I50.42 - CHRONIC COMBINED SYSTOLIC AND DIASTOLIC HRT FAIL Status: Chronic - Plan Plan: Acute CVA of blas, likely ischemic s/p TPA. MRI shows pontine infarction. Pt obtunded with minimal response to pain. Breathing over vent and gag/cough/corneal reflexes intact. - vent management per pulm. Pt not on sedation with exam findings as above. - Per the patient's daughter who is MPOA, pt would not wish to have trach and PEG. Consulted palliative care for assistance with goals of care Insulin dependent diabetes mellitus last A1C 9.4% in 04/2018. - will attempt to keep blood sugars between 140-180 while in hospital. - Patient glucose uncontrolled on 10 U lantus, will increase to 20 units today. On tube feeds. - AC/HS accuchecks. Indeterminate troponin elevated at baseline. Pt has prior [place] CKD stage IV Cr at baseline - will avoid nephrotoxic medications. CAD indeterminately elevated troponin appears at baseline. - will hold beta eran to allow for permissive HTN - aspirin restarted after > 24 hrs s/p tPA Combined systolic and diastolic heart failure. EF of 45-50% - will hold antihypertensives for now as BP's have been low - Continue lasix GERD - IV protonix for GI prophylaxis. Diet: tube feeds with Glucerna 1.2, nutrition on board Lines/Tubes: fernandez, peripheral IV GI ppx: Protonix IV Prognosis: Poor Dispo: inpatient CCU Addendum - Attending - Attending Attestation Date/Time: 07/25/18 4583 I personally evaluated the patient and discussed the management with Dr. Cade I agree with the History, Examination, Assessment and Plan documented above with any addition or exceptions noted below. Patient from outlying [place] with acute CVA received tPA at outside institution NIH score presumed high. Patient intubated here in ER and placed CCU patient remains minimally responsive and intubated to protect airway. Patient receiving NGT feeding. 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 Currently patient remains full code .
[2018-07-25 07:00] LABS: Actual Bicarbonate (HCO3a) 24.4 mEq/L (22-28); Base Excess (BEa) 0.6 mEq/L (-2.0 to +3.0); CO2 Tension 36.1 mmHg (35.0-45.0); Calcium, Ionized 1.14 mmol/L (1.12-1.30); Carboxyhemoglobin (COHb) 1.2 gm% (0.0-3.0); Hemoglobin (Hb) 10.1 g/dL (14.0-18.0); O2 Tension (PaO2) 101.1 mmHg (> 70.0); Potassium - ABG Lab 3.25 mmol/L (3.70-5.30); pH, Arterial 7.45 (7.35-7.45)
[2018-07-25 07:01] LABS: ALV-art Gradient 67.675 (0-20); Puncture Site RR
[2018-07-25 07:31] LABS: #Eosinphils 0.3 thou/uL (0.0-0.7); #Lymphocytes 1.5 thou/uL (1.20-3.40); #Monocytes 1.1 thou/uL (0.11-0.59); #Neutrophils 10.5 thou/uL (1.40-6.50); %Basophils 0.2 % (0.0-1.0); %Eosinophils 2.2 % (0.0-10.0); %Lymphocytes 11.2 % (21.0-51.0); %Monocytes 8.5 % (0.0-10.0); %Neutrophils 77.9 % (42.0-75.0); Hemoglobin 9.9 g/dL (14.0-18.0); Mean Corpuscular HGB CONC 31.1 g/dL (32.0-36.0); Mean Corpuscular Hemoglobin 23.8 pg (27.0-31.0); Mean Corpuscular Volume 76.4 fL (78.0-98.0); Mean Platelet Volume 8.2 fL (7.4-10.4); Platelet Count 226 thou/uL (130-400); RBC Distribution Width 16.3 % (11.5-14.5); Red Blood Cell (RBC) Count 4.17 mill/uL (4.70-6.10); White Blood Cell (WBC) Count 13.4 thou/uL (4.8-10.8)
--- NOTE | 2018-07-25 07:42 | PRG ---
DATE OF SERVICE: 07/24/2018 HISTORY OF PRESENT ILLNESS: A 68-year-old gentleman, remains intubated in the vent. His MRI showed multiple acute subacute lacunar infarct, bilateral middle cerebellar areas. Additionally, there is moderate-sized acute subacute infarction of the blas. He remains unresponsive on the vent. He is placed on a CPAP. OBJECTIVE: VITAL SIGNS: His temperature is 98, respiratory rate 23, blood pressure 127/65, . CHEST: Decreased breath sounds. No wheezing. CARDIAC: Normal S1 and S2. No gallops. ABDOMEN: No masses. LABORATORY DATA: His white count 15,000, hemoglobin and hematocrit of 11 and 36, platelet count 253. His renal function is normal. Lytes are normal. A pO2 of 116, pCO2 35, pH 7.44. IMPRESSION: Cerebrovascular accident, blas infarct, status post respiratory failure on vent. PLAN: Discussed with family. When they arrive, he is not weanable until family decides about his overall code status. I am going to continue TP nutrition, PT, and supportive care. This is a one-half hour of critical time. Job ID: [id number]
[2018-07-25 07:44] LABS: Anion Gap 11 mmol/L (10-20); BUN (Urea Nitrogen) 10 mg/dL (8.4-25.7); Calc. Creatinine Clearance 95 mL/min (70-130); Calcium 7.8 mg/dL (7.8-10.44); Carbon Dioxide 22 mmol/L (23-31); Chloride 106 mmol/L (98-107); Estimated GFR-MDRD Greater than 90; Glucose 200 mg/dL (80-115); Potassium 3.4 mmol/L (3.5-5.1); Sodium 136 mmol/L (136-145)
--- NOTE | 2018-07-25 08:46 | RAD ---
PORTABLE CHEST: INDICATIONS: Dyspnea. CCU followup. COMPARISON: 07/24/2018 FINDINGS: The lungs appear clear. No evidence of infiltrate. ET tube and NG tube remain in place. Postop gretel rnotomy changes noted. IMPRESSION: No acute process or significant interval change. POS: [facility]
[2018-07-25] MEDS: Metoclopramide HCl 10 MG TAB PER TUBE SCH ×3 (09:13→20:23)
[2018-07-25] MEDS: Furosemide 20 MG TAB PER TUBE SCH (09:14)
[2018-07-25] MEDS: Multivits W-Minerals Liquid 15mL UDCUP PER TUBE SCH (09:14)
[2018-07-25] MEDS: Pantoprazole 40 MG VIAL IVP SCH (09:14)
[2018-07-25] MEDS: Sodium Chloride 0.9% (PF) 10 ML VIAL FS PRN (09:14)
[2018-07-25] MEDS: Aspirin Chewable 81 MG TAB PER TUBE SCH (09:14)
[2018-07-25] MEDS: Allopurinol 300 MG TAB PO SCH (09:14)
--- NOTE | 2018-07-25 09:14 | PRG ---
DATE OF SERVICE: 07/25/2018 SUBJECTIVE: This morning, he remains unresponsive on the vent, rate of 4. Still having some long pauses, respiratory rate is about 26, the time to time, it decreases. OBJECTIVE: VITAL SIGNS: His blood pressure 128/84, pulse 72, respiratory rate 18. He is afebrile. GENERAL: Pretty much unresponsive. HEENT: Pupils are 2 mm. CHEST: Decreased breath sounds. No wheezing. CARDIAC: Normal S1, S2. No gallops. ABDOMEN: No masses. LABORATORY DATA: PO2 is 101, pCO2 36, pH 7.45, rate of 4, 30%. White count 15416. Lytes are normal. Chest x-ray is clear. IMPRESSION: Cerebrovascular accident status post tPA, apparently pontine stroke, respiratory failure. He is clearly not weanable. He has no gag. He would not be able to protect his airway. Family to have discussion with primary care physician and Neurology today regarding ongoing care. Pulmonary will follow. In the meantime, nutrition and PT. One-half hour of critical time. Job ID: [id number]
--- NOTE | 2018-07-25 11:11 | PRG ---
DATE OF SERVICE: 07/23/2018 ADDENDUM: Please see the note from Dr. Spencer, for which I agree. This gentleman was admitted yesterday for an acute CVA and was put on tPA. Initially, had some problems with blood pressure control, initially high and then it actually crashed low, but it has been stable since. There is a question of how we are going to image him today if we are just going to a repeat a CT or if we could proceed with an MRI, but has been stable on the ventilator and appreciate pulmonary's involvement of this with vent management. Neurology is involved as well and standard stroke protocol including speech therapy, echocardiogram, etc., have been initiated. Follow sliding scale for his diabetes and following his troponin, but likely more stress response than truly non-STEMI. So, we will see what additional imaging shows and then will see if Pulmonary decides to wean him or not. Also, going to start tube feeds as well. Job ID: [id number]
--- NOTE | 2018-07-25 11:17 | PRG ---
DATE OF SERVICE: 07/24/2018 ADDENDUM: Please see the note from Dr. Spencer for which I agree. The patient is still in the ICU after the acute CVA and tPA, MRI showing pontine infarction. He is not really sedated and not really responding to much except for extreme pain. He has extremely poor prognosis and appreciate Neurology's input in the case. We will talk about getting palliative care involved. Obviously poor prognosis unclear if he can even breathe over the vent as he is not doing that much of it currently and this is an extremely bad long-term prognosis. No major changes on exam. So at this point in time with more communication with family to determine ultimate plan here and letting them know that obviously the prognosis looks extremely grim. Job ID: [id number]
--- NOTE | 2018-07-25 16:58 | PRG ---
DATE OF SERVICE: 07/25/2018 CHIEF COMPLAINT: Acute stroke. HISTORY OF PRESENT ILLNESS/INTERVAL HISTORY: The patient is still on the ventilator and per [facility] note, there are plans to talk to. They have spoken to the family about tracheostomy and that is not planned for him. At this time, they are waiting on palliative care therapy. Family is by the bedside, mainly his daughter and brother. The patient's daughter stated the patient opened his eyes for once. Per nursing staff, the patient is not opening his eyes or following any commands. LABORATORY WORKUP: White count 13.4, hemoglobin 9.9, hematocrit 31.9, platelet count 226. Chemistry; sodium 136, potassium 3.4, chloride 106, bicarb 22, BUN 10, creatinine 0.83, glucose 200. PHYSICAL EXAMINATION: VITAL SIGNS: Blood pressure was 122/83, temperature 99.7, pulse is 89. GENERAL APPEARANCE: The patient is on the ventilator and he is not on any sedation, does not seem to be responding much. NEUROLOGIC: Pupils are 1 mm, reactive. The patient is not responding to any verbal stimuli, but can withdraw to deep painful stimuli. IMPRESSION: The patient with a pontine cerebrovascular accident and multiple lacunar infarcts. He is not able to wean off the vent due to the moderate ischemic event in the pontine area. RECOMMENDATIONS: 1. I spoke to the family at length about the neurological deficit that he has due to his acute stroke and that he may not be able to get off the vent for a prolonged period. He will probably need tracheostomy and long-term ventilator support. Family stated that that was not the patient's wish and they would like to keep him comfortable at this time. They are waiting on directives from the nursing staff and physicians from the ICU. 2. Please continue vent support and current management and the goal here is to keep the patient comfortable. Call Neurology if you have any further questions. Job ID: [id number]
[2018-07-25] MEDS: Atorvastatin Calcium 40 MG TAB PER TUBE SCH (20:23)
[2018-07-25] MEDS ORDERED: Insulin Glargine 20 UNITS in Pre-Filled Syringe 1 EACH SC SCH (21:00)
[2018-07-26] MEDS: Sodium Chloride 0.9% 1,000 ML IV SCH (04:17)
[2018-07-26] MEDS: Labetalol HCl 100 MG/20 ML VIAL SLOW IVP PRN ×2 (04:17→10:49)
[2018-07-26] MEDS: Insulin Regular 300 UNITS/3 ML VIAL SC PRN ×2 (04:43→10:49)
[2018-07-26 05:42] LABS: #Basophils 0.1 thou/uL (0.0-0.2); #Eosinphils 0.6 thou/uL (0.0-0.7); #Lymphocytes 2.1 thou/uL (1.20-3.40); #Monocytes 1.3 thou/uL (0.11-0.59); #Neutrophils 9.5 thou/uL (1.40-6.50); %Basophils 0.4 % (0.0-1.0); %Eosinophils 4.4 % (0.0-10.0); %Lymphocytes 15.1 % (21.0-51.0); %Monocytes 9.9 % (0.0-10.0); %Neutrophils 70.2 % (42.0-75.0); Hemoglobin 9.9 g/dL (14.0-18.0); Mean Corpuscular HGB CONC 30.9 g/dL (32.0-36.0); Mean Corpuscular Hemoglobin 23.6 pg (27.0-31.0); Mean Corpuscular Volume 76.4 fL (78.0-98.0); Mean Platelet Volume 8.6 fL (7.4-10.4); Platelet Count 222 thou/uL (130-400); RBC Distribution Width 16.2 % (11.5-14.5); White Blood Cell (WBC) Count 13.6 thou/uL (4.8-10.8)
[2018-07-26 06:03] LABS: Anion Gap 11 mmol/L (10-20); BUN (Urea Nitrogen) 14 mg/dL (8.4-25.7); Calc. Creatinine Clearance 93 mL/min (70-130); Carbon Dioxide 25 mmol/L (23-31); Chloride 104 mmol/L (98-107); Estimated GFR-MDRD 86; Glucose 188 mg/dL (80-115); Potassium 3.6 mmol/L (3.5-5.1); Sodium 136 mmol/L (136-145)
--- NOTE | 2018-07-26 07:03 | PDOC.FM ---
- Subjective Subjective: Patient intubated on no sedation, currently responsive only to deep painful stimuli. - Objective MAR Reviewed: Yes Vital Signs & Weight: Vital Signs (12 hours) Temp Pulse Resp BP Pulse Ox 07/26/18 06:00 11 L 07/26/18 04:17 68 189/78 H 07/26/18 04:00 99.6 F 10 L 07/26/18 02:40 68 173/76 H 07/26/18 02:00 18 07/26/18 00:00 99.3 F 26 H 07/25/18 22:19 83 144/71 H 07/25/18 22:00 17 07/25/18 20:00 100.9 F H 10 L 99 Weight Admit Weight 83.5 kg Weight 84.6 kg Most Recent Monitor Data Heart Rate from ECG 65 NIBP 172/67 NIBP BP-Mean 102 Respiration from ECG 14 SpO2 100 I&O: 07/25/18 07/26/18 07/27/18 06:59 06:59 06:59 Intake Total 2296 3045 Output Total 1074 2005 Balance 1222 1040 Result Diagrams: 07/26/18 04:13 07/26/18 04:13 Phys Exam - Physical Examination Constitutional: NAD (resting comfortably on ventilator) HEENT: moist MMs, sclera anicteric Respiratory: no wheezing, no rales, no rhonchi, clear to auscultation bilateral Cardiovascular: RRR, no significant murmur, no rub Gastrointestinal: soft, non-tender, no distention, positive bowel sounds Musculoskeletal: pulses present, edema present (trace edema diffusely) intact corneal and cough reflexes, withdraws to deep painful stimuli Skin: normal turgor, cap refill <2 seconds Dx/Plan (1) Acute CVA (cerebrovascular accident) Code(s): I63.9 - CEREBRAL INFARCTION, UNSPECIFIED Status: Acute (2) Elevated troponin level Code(s): R74.8 - ABNORMAL LEVELS OF OTHER SERUM ENZYMES Status: Acute (3) CKD (chronic kidney disease), stage III Code(s): N18.3 - CHRONIC KIDNEY DISEASE, STAGE 3 (MODERATE) Status: Chronic (4) Coronary artery disease Code(s): I25.10 - ATHSCL HEART DISEASE OF [place] CORONARY ARTERY W/O ANG PCTRS Status: Chronic Qualifiers: Coronary Disease-Associated Artery/Lesion type: bypass graft [place] vs. transplanted heart: [place] heart (5) Dementia Code(s): F03.90 - UNSPECIFIED DEMENTIA WITHOUT BEHAVIORAL DISTURBANCE Status: Chronic (6) Diabetes mellitus, type II Status: Chronic (7) Diastolic CHF Code(s): I50.30 - UNSPECIFIED DIASTOLIC (CONGESTIVE) HEART FAILURE Status: Chronic Qualifiers: Heart failure chronicity: acute on chronic Qualified Code(s): I50.33 - Acute on chronic diastolic (congestive) heart failure (8) GERD (gastroesophageal reflux disease) Code(s): K21.9 - GASTRO-ESOPHAGEAL REFLUX DISEASE WITHOUT ESOPHAGITIS Status: Chronic (9) Hx of CABG Status: Chronic (10) Hyperlipemia Code(s): E78.5 - HYPERLIPIDEMIA, UNSPECIFIED Status: Chronic Qualifiers: Hyperlipidemia type: unspecified Qualified Code(s): E78.5 - Hyperlipidemia , unspecified (11) Hypertension Code(s): I10 - ESSENTIAL (PRIMARY) HYPERTENSION Status: Chronic (12) Insulin dependent diabetes mellitus Code(s): E11.9 - TYPE 2 DIABETES MELLITUS WITHOUT COMPLICATIONS; Z79.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 MRI shows pontine infarction. Pt obtunded with minimal response to pain. Breathing over vent and gag/cough/corneal reflexes intact. - vent management per pulm. Pt not on sedation with exam findings as above. - Vent settings: SIMV rate 4 (pt breathing over vent with rate in 20's, but routinely has 20-30 second pauses in respiration), Pressure support 10, FiO2 30% , PEEP 5 - Per the patient's daughter who is MPOA, pt would not wish to have trach and PEG. Consulted palliative care for assistance with goals of care Insulin dependent diabetes mellitus last A1C 9.4% in 04/2018. - will attempt to keep blood sugars between 140-180 while in hospital. - Patient glucose uncontrolled on 20 U lantus, will increase to 25U today. On tube feeds. - AC/HS accuchecks. Indeterminate troponin elevated at baseline. Pt has prior [place] CKD stage IV Cr at baseline - will avoid nephrotoxic medications. CAD indeterminately elevated troponin appears at baseline. - will restart lisinopril and coreg as BP's now elevated - aspirin restarted after > 24 hrs s/p tPA Combined systolic and diastolic heart failure. EF of 45-50% - will restart coreg - Continue lasix GERD - IV protonix for GI prophylaxis. Diet: tube feeds with Glucerna 1.2, nutrition on board Lines/Tubes: fernandez, peripheral IV GI ppx: Protonix IV VTE ppx: SCD's Prognosis: Poor Dispo: inpatient CCU Addendum - Attending - Attending Attestation Date/Time: 07/26/18 1116 I personally evaluated the patient and discussed the management with Dr. Cade I agree with the History, Examination, Assessment and Plan documented above with any addition or exceptions noted below. Discussed with Daughter AURELIA cheri Trach and Peg placement. Patient will be evaluated for hospice care and extubation today. Discussed plan with patient daughter who is in agreement and this meant her wishes as MPOA.
[2018-07-26 07:20] LABS: Actual Bicarbonate (HCO3a) 24.8 mEq/L (22-28); Base Excess (BEa) 0.1 mEq/L (-2.0 to +3.0); CO2 Tension 40.7 mmHg (35.0-45.0); Calcium, Ionized 1.14 mmol/L (1.12-1.30); Hemoglobin (Hb) 10.2 g/dL (14.0-18.0); O2 Tension (PaO2) 96.7 mmHg (> 70.0); Potassium - ABG Lab 3.47 mmol/L (3.70-5.30)
[2018-07-26 07:25] LABS: ALV-art Gradient 66.325 (0-20); Puncture Site RR
--- NOTE | 2018-07-26 08:40 | PRG ---
DATE OF SERVICE: 07/26/2018 SUBJECTIVE: This morning, he is intubated in the vent, remains still pretty much unresponsive. OBJECTIVE: VITAL SIGNS: Pulse is 73, blood pressure 177/75, saturations 100%, respiratory rate is 22, afebrile. Upgoing toes. HEENT: Pupils are equal. CHEST: Decreased breath sounds. No wheezing. CARDIAC: Normal S1, S2. No gallop. ABDOMEN: Soft. NEUROLOGIC: Responsive only to painful stimuli. LABORATORY DATA: White count 70701, H and H are 9 and 32, platelet count is normal. PO2 was 96, pCO2 40.44, rate of 4. Lytes are normal. IMPRESSION: 1. Respiratory failure. 2. Pontine cerebrovascular accident. 3. Status post tPA. PLAN: The patient made a DNR. Comfort care, extubation when okay with family. We will stop all medication when he is extubated. One-half hour of critical time. Job ID: [id number]
[2018-07-26] MEDS: Sodium Chloride 0.9% (PF) 10 ML VIAL FS PRN (08:44)
[2018-07-26] MEDS: Allopurinol 300 MG TAB PO SCH (08:44)
[2018-07-26] MEDS: Multivits W-Minerals Liquid 15mL UDCUP PER TUBE SCH (08:44)
[2018-07-26] MEDS: Aspirin Chewable 81 MG TAB PER TUBE SCH (08:44)
[2018-07-26] MEDS: Metoclopramide HCl 10 MG TAB PER TUBE SCH (08:44)
[2018-07-26] MEDS: Pantoprazole 40 MG VIAL IVP SCH (08:44)
[2018-07-26] MEDS ORDERED: Furosemide 20 MG/2 ML VIAL SLOW IVP SCH (09:00)
[2018-07-26] MEDS ORDERED: Carvedilol 6.25 MG TAB PER TUBE SCH (09:00)
[2018-07-26] MEDS ORDERED: Lisinopril 20 MG TAB PER TUBE SCH (09:00)
[2018-07-26 09:27] VITALS: BMI 25.9
[2018-07-26] MEDS: Morphine 4 MG/ML VIAL SLOW IVP PRN ×3 (11:21→16:17)
[2018-07-26] MEDS: Lorazepam 2 MG/ML VIAL SLOW IVP PRN ×3 (11:22→16:25)
[2018-07-26 18:28] VITALS: BP 139/75; TEMP 97.7
[2018-07-26] MEDS ORDERED: Insulin Glargine 25 UNITS in Pre-Filled Syringe 1 EACH SC SCH (21:00)
--- NOTE | 2018-07-28 00:51 | DIS ---
DATE OF ADMISSION: 07/22/2018 DATE OF DISCHARGE: 07/26/2018 ADMITTING ATTENDING: Amparo Slade MD DISCHARGE ATTENDING: Loyd Elise MD ADMITTING RESIDENT: Nicki Spencer MD DISCHARGE RESIDENT: Rosemary Cade MD CONSULTS: 1. Dr. Cueva with Pulmonology. 2. Dr. Alvarez with Neurology. PROCEDURES: 1. TPA administration on 07/22/2018. Imaging, brain CT showed no CT evidence of acute intracranial process. 2. 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 3. Repeat brain CT showed no CT evidence of acute intracranial process. 4. Chest x-ray showed ET tube with tip below the level of clavicular heads. NG tube in the stomach. No acute process. 5. Repeat chest x-ray showed appropriate position and alignment of tubes. 6. Brain MRI showed moderate-sized acute or subacute infarction of the blas. Multiple small and tiny acute or subacute lacunar infarctions of bilateral middle cerebellar peduncles and dentate nuclei. Probable thrombus in basilar artery and possibly right vertebral artery. Multiple tiny old lacunar infarctions of bilateral corpus striatum. Old lacunar infarctions of bilateral thalami, left much worse than right. Left-sided Wallerian degeneration. No acute hemorrhage. PRIMARY DIAGNOSES: 1. Acute ischemic pontine cerebrovascular accident. 2. Acute respiratory failure due to inability to protect airway. 3. Indeterminate troponin. SECONDARY DIAGNOSES: 1. Insulin-dependent diabetes mellitus. 2. Microcytic anemia. 3. Chronic kidney disease stage 4. 4. Coronary artery disease. 5. Combined systolic and diastolic heart failure. 6. Gastroesophageal reflux disease. 7. Hypertension. 8. Hyperlipidemia. 9. Alzheimer's dementia. DISCHARGE MEDICATIONS: 1. Ativan 2 mg q.1 hour p.r.n. anxiety. 2. Morphine 4 mg q.1 hour p.r.n. comfort care. Discontinued medications: 1. Furosemide 20 mg p.o. daily. 2. Finasteride 5 mg p.o. daily. 3. Ferrous sulfate 220 mg p.o. b.i.d. 4. Carvedilol 6.25 mg p.o. b.i.d. 5. Atorvastatin 80 mg p.o. at bedtime. 6. Aspirin 81 mg p.o. daily. 7. Allopurinol 300 mg p.o. daily. 8. Acetaminophen 650 mg p.o. q.4 hours p.r.n. 9. Protonix 40 mg p.o. daily. 10. Multivitamin 1 tablet p.o. daily. 11. Reglan 10 mg p.o. t.i.d. 12. Milk of magnesia 30 mL p.o. daily p.r.n. constipation. 13. Loperamide 2 mg p.o. p.r.n. 14. Lisinopril 20 mg p.o. daily. 15. Levemir 80 units subcu daily. 16. NovoLog 15 units subcu t.i.d. HISTORY OF PRESENT ILLNESS/HOSPITAL COURSE: This is a 68-year-old gentleman with past medical history of Alzheimer's dementia and prior CVA with residual right- sided deficits, who presented to the [facility] due to altered mental status. The patient was found to have a large acute stroke and was given tPA. The patient became obtunded with inability to protect airway and was intubated. The patient was admitted to the ICU and was protected from blood draws/falls for 24 hours. The patient had a brain MRI after 24 hours status post tPA, which showed a moderate-sized subacute pontine infarction. The patient was not able to be aroused and would only respond with withdrawal to deep painful stimuli. The patient had most of his brainstem reflexes intact. However, he was not able to regulate his respiratory rate due to severe stroke and would have large pauses in breathing and the patient was unable to protect airway. Discussions were had with the patient's daughter, who is the medical power of senior trial attorney, regarding putting in a trach and PEG for the patient. However, the daughter expressed that his wishes would not be to have a trach and a PEG. Palliative Care and Hospice were consulted, and the decision was made to extubate the patient and proceed with hospice comfort care on 07/26/2018. The patient was extubated at 11:15 a.m. on 07/26/2018 and was discharged from our service and admitted to the hospice service for inpatient hospice. The patient' s primary care physician, Dr. Mccullough was notified of these decisions. DISPOSITION: Guarded. DISCHARGE INSTRUCTIONS: 1. Location: Inpatient hospice. 2. Diet: N.p.o. 3. Activity: Bed rest. 4. Followup: Follow up with Hospice care. Job ID: [id number]
== END 2018-07-26 17:23 | disposition hospice, inpatient (51) | DRG 64 ==
LOC: ERS 11:07 → CCU 13:15 → ONC 07-26 14:15
PROVIDERS: ADMIT Family Medicine; ATTEND Family Medicine
PROC: 5A1945Z Respiratory Ventilation, 24-96 Consecutive Hours (ICD-10-PCS; principal; 2018-07-22)
DX: I63.02 Cerebral infarction due to thrombosis of basilar artery (principal); J96.00 Acute respiratory failure, unspecified whether with hypoxia or hypercapnia; I13.0 Hypertensive heart and chronic kidney disease with heart failure and stage 1 through stage 4 chronic kidney disease, or unspecified chronic kidney disease; I50.42 Chronic combined systolic (congestive) and diastolic (congestive) heart failure; G81.91 Hemiplegia, unspecified affecting right dominant side; N18.4 Chronic kidney disease, stage 4 (severe); E11.22 Type 2 diabetes mellitus with diabetic chronic kidney disease; Z79.4 Long term (current) use of insulin; D50.9 Iron deficiency anemia, unspecified; K21.9 Gastro-esophageal reflux disease without esophagitis; I25.10 Atherosclerotic heart disease of native coronary artery without angina pectoris; Z95.1 Presence of aortocoronary bypass graft; E66.01 Morbid (severe) obesity due to excess calories; Z68.26 Body mass index [BMI] 26.0-26.9, adult; Z66 Do not resuscitate; G30.9 Alzheimer's disease, unspecified; F02.80 Dementia in other diseases classified elsewhere, unspecified severity, without behavioral disturbance, psychotic disturbance, mood disturbance, and anxiety; I25.2 Old myocardial infarction
CPT/HCPCS: 36415; 36416; 70450; 70551; 71045; 80048; 80061; 82805; 83036; 83880; 83970; 85025; 87324; 87449; 93306; 94002; 94003; C9113; J1815; J1825; J1940; J2060; J2270; J2704; J3010; J7050; J8597

== ENCOUNTER 2018-07-26 17:24 | Inpatient (IN) | payer OTHER ==
[2018-07-26] MEDS: Morphine 4 MG/ML VIAL SLOW IVP PRN (17:50)
[2018-07-26] MEDS: Lorazepam 2 MG/ML VIAL SLOW IVP PRN (18:02)
[2018-07-26 18:17] VITALS: BMI 26.7
[2018-07-27] MEDS: Scopolamine 1.5 mg/72 hour Patch TOP PRN (02:39)
[2018-07-27] MEDS: Morphine 4 MG/ML VIAL SLOW IVP PRN ×3 (03:28→06:05)
[2018-07-28] MEDS: Morphine 4 MG/ML VIAL SLOW IVP PRN ×2 (07:27→09:47)
[2018-07-28] MEDS: Lorazepam 2 MG/ML VIAL SLOW IVP PRN ×2 (08:04→15:35)
[2018-07-29] MEDS: Morphine 4 MG/ML VIAL SLOW IVP PRN ×5 (01:37→20:16)
[2018-07-29] MEDS: Lorazepam 2 MG/ML VIAL SLOW IVP PRN ×2 (01:57→14:40)
[2018-07-29] MEDS: Hyoscyamine Sulfate SL 0.125 mg Tablet SL PRN ×2 (02:57→15:06)
[2018-07-30] MEDS: Hyoscyamine Sulfate SL 0.125 mg Tablet SL PRN ×2 (00:40→17:05)
[2018-07-30] MEDS: Scopolamine 1.5 mg/72 hour Patch TOP PRN (00:47)
[2018-07-30] MEDS: Morphine 4 MG/ML VIAL SLOW IVP PRN ×4 (02:08→16:57)
[2018-07-30] MEDS: Lorazepam 2 MG/ML VIAL SLOW IVP PRN ×2 (11:02→15:30)
[2018-07-31] MEDS: Lorazepam 2 MG/ML VIAL SLOW IVP PRN ×4 (02:01→21:39)
[2018-07-31] MEDS: Hyoscyamine Sulfate SL 0.125 mg Tablet SL PRN ×3 (02:01→21:39)
[2018-07-31] MEDS: Morphine 4 MG/ML VIAL SLOW IVP PRN ×5 (08:43→21:39)
[2018-08-01] MEDS: Morphine 4 MG/ML VIAL SLOW IVP PRN ×2 (05:06→10:59)
[2018-08-01] MEDS: Hyoscyamine Sulfate SL 0.125 mg Tablet SL PRN (05:06)
[2018-08-01 08:01] VITALS: BP 110/56; TEMP 99.3
== END 2018-08-01 15:59 | disposition expired | DRG 951 ==
LOC: ONC 17:24
PROVIDERS: ADMIT Family Medicine; ATTEND Family Medicine
DX: Z51.5 Encounter for palliative care (principal); I63.9 Cerebral infarction, unspecified; I69.351 Hemiplegia and hemiparesis following cerebral infarction affecting right dominant side; I13.0 Hypertensive heart and chronic kidney disease with heart failure and stage 1 through stage 4 chronic kidney disease, or unspecified chronic kidney disease; I50.42 Chronic combined systolic (congestive) and diastolic (congestive) heart failure; R47.89 Other speech disturbances; Z92.82 Status post administration of tPA (rtPA) in a different facility within the last 24 hours prior to admission to current facility; I25.10 Atherosclerotic heart disease of native coronary artery without angina pectoris; Z95.1 Presence of aortocoronary bypass graft; I25.2 Old myocardial infarction; G30.9 Alzheimer's disease, unspecified; F02.80 Dementia in other diseases classified elsewhere, unspecified severity, without behavioral disturbance, psychotic disturbance, mood disturbance, and anxiety; E11.22 Type 2 diabetes mellitus with diabetic chronic kidney disease; N18.3 Chronic kidney disease, stage 3 (moderate); Z79.4 Long term (current) use of insulin; K21.9 Gastro-esophageal reflux disease without esophagitis; D50.9 Iron deficiency anemia, unspecified; Z66 Do not resuscitate; Z79.82 Long term (current) use of aspirin; F32.9 Major depressive disorder, single episode, unspecified
CPT/HCPCS: J2060; J2270